=== PATIENT | female | born 1955 | race Caucasian/White ===

== ENCOUNTER → 2021-07-06 | Outpatient (CLI) | payer MEDICARE, BC ==
--- NOTE | 2021-07-06 14:15 | KCIC ---
EXAM: Lumbar spine MRI without contrast. HISTORY: Pain. TECHNIQUE: Multiplanar, multisequence magnetic resonance imaging of the lumbar spine was performed wi thout contrast. COMPARISON: None. FINDINGS: There is mild lumbar hyperlordosis. There is 4 mm grade 1 anterolisthesis of L3 on L4, 5 mm grade 1 anterolisthesis of L4 on L5, and 3 mm grade 1 anterolisthesis of L5 on S1. There is multilev el degenerative endplate remodeling, primarily at L3-L4. There is associated disc space narrowing and Schmorl's node formation primarily at this level. There is no suspicious osseous lesion. There is no acute or subacute fracture. The conus terminates at L1. There are few incidental osseous hemangiomas . At L1-L2, there is no stenosis. At L2-L3, there is a disc bulge and endplate remodeling. There is mild bilateral facet arthropathy. T here is no stenosis. At L3-L4, there is a right foraminal to extra foraminal disc protrusion superimposed on a disc bulge and endplate osteophytosis. There is severe bilateral facet arthropathy. There is hypertrophy of the ligamentum flavum. There is grade 1 anterolisthesis. There is moderate to severe right and moderate l eft foraminal stenosis. There is severe central canal stenosis. At L4-L5, there is a disc bulge and endplate remodeling. There is severe bilateral facet arthropathy. There is hypertrophy of the ligament flavum. There is grade 1 anterolisthesis. There is mild left fo raminal stenosis. There is mild to moderate central canal stenosis. At L5-S1, there are bilateral extraforaminal to lateral disc osteophyte complexes superimposed on a d isc bulge and endplate remodeling. There is severe bilateral facet arthropathy. There is grade 1 ante rolisthesis. There is mild bilateral foraminal stenosis. IMPRESSION: 1. Multilevel degenerative change involving the lumbar spine, described in detail above. This results in moderate to severe right and moderate left foraminal and severe central canal stenosis at L3-L4, mild left foraminal and mild to moderate central canal stenosis at L4-5 and mild bilateral foraminal stenosis at L5-S1. 2. Multilevel grade 1 anterolisthesis, mild hyperlordosis and mild scoliosis. Electronically signed by: Herminia Hagen MD (07/06/2021 2:13 PM) [id number]
== END ==
LOC: KCIC MRI 13:38
PROVIDERS: ATTEND Psychiatry & Neurology Neurology with Special Qualifications in Child Neurology
DX: M47.816 Spondylosis without myelopathy or radiculopathy, lumbar region (principal); M48.07 Spinal stenosis, lumbosacral region; M43.16 Spondylolisthesis, lumbar region; M51.27 Other intervertebral disc displacement, lumbosacral region; M48.8X7 Other specified spondylopathies, lumbosacral region; M51.46 Schmorl's nodes, lumbar region; M25.78 Osteophyte, vertebrae
CPT/HCPCS: 72148

== ENCOUNTER → 2021-08-03 | Outpatient (CLI) | payer MEDICARE, BC ==
--- NOTE | 2021-08-03 11:57 | KCIC ---
EXAM: Lumbar spine, flexion and extension. HISTORY: Pain. COMPARISON: None. FINDINGS: Lateral neutral standing and flexion and lateral supine views of the lumbar spine are obtai callie. There is a grade 1 anterolisthesis of L4 on L5, 5 mm grade 1 anterolisthesis of L3 on L4 and 3 m m grade 1 anterolisthesis of L5 on S1 and a standing position. There is 11 mm grade 1 anterolisthesis of L4 on L5, 9 mm grade 1 anterolisthesis of L3 on L4 and 3 mm grade 1 anterolisthesis of L5 on S1 w ith flexion. There is 2 mm grade 1 anterolisthesis of L4 on L5 in the supine position. There is multi level endplate remodeling and facet arthropathy. There is bone demineralization. IMPRESSION: 1. Grade 1 anterolisthesis of L4 on L5, and to lesser extent, L3 on L4, which increases with flexion and decreases in the supine position. 2. Grade 1 anterolisthesis of L5 on S1 which decreases in the supine position and does not change wit h flexion. 3. Multilevel degenerative change and suspected bone demineralization. Electronically signed by: Herminia Hagen MD (08/03/2021 11:55 AM) [id number]
== END ==
LOC: KCIC 11:08
PROVIDERS: ATTEND Neurological Surgery
DX: M47.817 Spondylosis without myelopathy or radiculopathy, lumbosacral region (principal); M43.17 Spondylolisthesis, lumbosacral region; M48.8X7 Other specified spondylopathies, lumbosacral region
CPT/HCPCS: 72100

== ENCOUNTER 2021-09-29 08:30 | Inpatient (IN) | payer MEDICARE, BC ==
[~2021-09-29] VITALS: Ht 160 cm; Wt 72.7 kg
[~2021-09-29 08:30] MED LIST: ALEN70TA71 PO; BUPR300T3 PO; CALC-161 PO; CARB-183 PO; GABA600T7 PO; HYDROmorphone 2 MG/ML INJ. IVP PRN; INSU100V37 SQ; INSU100V6 SQ; IV RINGERS,LACTATED 1000ML 1,000 ML IV SCH; LEVO125T5 PO; LORA10CA PO; LOSA-73 PO; MELO15TA6 PO; METO-239 PO; MORPHINE SULFATE 2 MG/ML INJ. IVP PRN; ONDA8TAB15 PO; PIOG15TA42 PO; POLY17PO29 PO; PRAV40TA2 PO; PROCHLORPERAZINE 10 MG/2 ML VIAL. IVP PRN; ROPI0.5T4 PO; SENN8.6T11 PO; TEGA6TAB PO; TIZA-75 PO; UBID50TA PO; ceFAZolin SODIUM 1 GM in IV NORMAL SALINE 1000ML BAG 1,000 ML IRR ONE; fentaNYL PF VIAL 100 MCG/2 ML VIAL IVP PRN
[2021-10-06] MEDS ORDERED: ceFAZolin SODIUM 1 GM in IV NORMAL SALINE 1000ML BAG 1,000 ML IRR ONE (14:00)
[2021-10-07] VITALS (8 sets, daily range): BP systolic 96–134; BP diastolic 43–64
[2021-10-07] MEDS ORDERED: MORPHINE SULFATE 2 MG/ML INJ. IVP PRN (06:00)
[2021-10-07] MEDS ORDERED: HYDROmorphone 2 MG/ML INJ. IVP PRN (06:00)
[2021-10-07] MEDS ORDERED: IV RINGERS,LACTATED 1000ML 1,000 ML IV SCH (06:00)
[2021-10-07] MEDS ORDERED: fentaNYL PF VIAL 100 MCG/2 ML VIAL IVP PRN (06:00)
[2021-10-07] MEDS ORDERED: PHENYLEPHRINE in 0.9% NACL PF 1 MG/10 ML SYRINGE. IV ONE (06:28)
[2021-10-07] MEDS ORDERED: PROPOFOL 10 MG/ML (20ML) VIAL. IV ONE (06:28)
[2021-10-07] MEDS ORDERED: ONDANSETRON PF 4 MG/2 ML VIAL. ONE (06:28)
[2021-10-07] MEDS ORDERED: DEXAMETHASONE SOD PHOS 4 MG/ML VIAL ONE (06:28)
[2021-10-07] MEDS ORDERED: GLYCOPYRROLATE 1 MG/5 ML VIAL. ONE (06:28)
[2021-10-07] MEDS ORDERED: LIDOCAINE 2% PF 5 ML VIAL. ONE ×5 (06:28→10:06)
[2021-10-07] MEDS ORDERED: ROCURONIUM 50 MG/5 ML VIAL. ONE (06:30)
[2021-10-07] MEDS ORDERED: fentaNYL PF VIAL 100 MCG/2 ML VIAL ONE ×3 (06:30→15:20)
[2021-10-07] MEDS ORDERED: SUCCINYLCHOLINE 200 MG/10 ML VIAL. ONE (06:30)
[2021-10-07] MEDS ORDERED: MIDAZOLAM HCL/PF 2 MG/2 ML VIAL. ONE (06:30)
[2021-10-07] MEDS ORDERED: REMIFENTANIL 1 MG VIAL. IV ONE ×3 (06:31→10:42)
[2021-10-07] MEDS ORDERED: 0.9 % SODIUM CHLORIDE 20 ML VIAL. IJ ONE ×7 (06:31→10:42)
[2021-10-07] MEDS ORDERED: BUPIVACAINE-EPI 0.5% 30 ML VIAL KIT. ONE (06:35)
[2021-10-07] MEDS ORDERED: GELATIN SPONGE SIZE 100. ONE ×2 (06:35→14:12)
[2021-10-07] MEDS ORDERED: KETOROLAC 60 MG/2 ML VIAL. ONE (06:35)
[2021-10-07] MEDS ORDERED: THROMBIN TOPICAL 20,000 UNIT SPRAY.SYRN KIT TP ONE ×2 (06:35→14:12)
[2021-10-07] MEDS ORDERED: PROPOFOL 50 ML IV ONE (06:50)
[2021-10-07] MEDS ORDERED: CRESTOR5 MG PO (07:21)
[2021-10-07] MEDS ORDERED: INSULIN LISPRO 100 UNIT/ML 3ML VIAL for OP,RR ONLY. SQ PRN (07:45)
--- NOTE | 2021-10-07 07:50 | EKG ---
[facility] [address] [place] [address] Test Date: 2021-10-07 Test Time: 07:49:40 Pat Name: KIM TOBIAS Department: Room: [place] [id number] Gender: F [employer]her: : 1955 Requested By: HANY CAMPOVERDE Order Number: [id number] Reading MD: Vinicius Esparza MD Measurements Intervals [place] Rate: 75 P: 0 AL: 172 QRS: 24 QRSD: 94 T: 55 QT: 392 QTc: 440 Interpretive Statements SINUS RHYTHM Electronically Signed On 10-10-2021 16:17:02 [employer] by Vinicius Esparza MD
[2021-10-07 07:51] LABS: PROTHROMBIN TIME PATIENT 12.8 SEC (11.7-14.0)
--- NOTE | 2021-10-07 08:26 | RAD ---
CT LUMBAR SPINE WO History:Reason: BRAIN LAB / Spl. Instructions: / History: Pain Technique: Noncontrast CT was performed of the lumbar spine. Multiplanar reconstructions were perform ed. Exposure: One or more of the following individualized dose reduction techniques were utilized for thi s examination: 1. Automated exposure control 2. Adjustment of the mA and/or kV according to patient size 3. Use of iterative reconstruction technique. Comparison: MRI July 06, 2021 Findings: Grade 1 anterolisthesis L4 on L5. Slight grade 1 anterolisthesis L3 on L4 and L5 on S1. Normal verteb ral body height. No acute fracture. Degenerative endplate changes most prominent L3-L4 and L4-L5. T12-L1: Minimal disc bulge. No canal or neuroforaminal narrowing. L1-L2: Small disc bulge. No canal or neuroforaminal narrowing. L2-L3: Small disc bulge. Mild facet arthropathy. Small left foraminal disc protrusion. Mild left sarath roforaminal narrowing. L3-L4: Disc phenomenon. Broad-based disc bulge. Slight anterolisthesis. Moderate canal narrowing. Se livan subarticular recess narrowing. Advanced facet arthropathy. Mild to moderate bilateral neuroforam inal narrowing. L4-L5: Anterolisthesis. Broad-based disc bulge with disc uncovering. Advanced facet arthropathy. Mod erate canal narrowing. And severe subarticular recess narrowing. Moderate bilateral neuroforaminal na rrowing. L5-S1: Slight anterolisthesis. Disc protrusion. Mild canal narrowing. Subarticular recess narrowing. Advanced facet arthropathy. Mild bilateral neuroforaminal narrowing. Impression: 1. Moderate lumbar spondylosis with multilevel anterolisthesis. 2. Moderate L3-L4 and L4-5 canal narrowing with severe subarticular recess narrowing. 3. Mild L5-S1 canal narrowing. 4. Neuroforaminal narrowing most prominent L4-5. Electronically signed by: Adam Douglass DO (10/07/2021 8:24 AM) [facility]
[2021-10-07] MEDS ORDERED: KETAMINE HCL IN NACL, ISO-OSM 50 MG/5 ML SYRINGE ONE ×2 (08:30→10:05)
[2021-10-07] MEDS ORDERED: SUGAMMADEX SODIUM 200 MG/2 ML VIAL. IVP ONE (08:45)
[2021-10-07] MEDS ORDERED: SEVOFLURANE > 120 MINUTES. IH ONE (09:34)
[2021-10-07] MEDS: LOSARTAN POTASSIUM 50 MG TABLET. PO SCH (10:00)
[2021-10-07] MEDS ORDERED: DEXTROSE 50% 25 GM / 50ML DISP.SYRIN. IV PRN ×2 (10:15→16:30)
[2021-10-07] MEDS ORDERED: IV DEXTROSE 5% 250 ML BAG. IV PRN ×2 (10:15→16:30)
[2021-10-07] MEDS ORDERED: 0.9 % SODIUM CHLORIDE 10 ML DISP.SYRIN. IV PRN (10:15)
[2021-10-07] MEDS ORDERED: MAGNESIUM HYDROXIDE 2,400 MG/30 ML ORAL.SUSP. PO PRN (10:15)
[2021-10-07] MEDS ORDERED: diphenhydrAMINE HCL 25 MG CAPSULE PO PRN (10:15)
[2021-10-07] MEDS ORDERED: MAG HYDROX/ALUMINUM HYD/SIMETH 30 ML ORAL.SUSP PO PRN (10:15)
[2021-10-07] MEDS ORDERED: CALCIUM CARBONATE 500 MG TAB.CHEW PO PRN (10:15)
[2021-10-07] MEDS ORDERED: NALOXONE 0.4 MG/ML VIAL. IV PRN (10:15)
[2021-10-07] MEDS ORDERED: PHENYLEPHRINE 10 MG/ML VIAL. ONE (11:00)
[2021-10-07] MEDS ORDERED: ONDANSETRON ODT 4 MG TAB.RAPDIS. PO PRN (11:15)
[2021-10-07] MEDS ORDERED: CETIRIZINE HCL 10 MG TABLET. PO PRN (11:15)
[2021-10-07] MEDS ORDERED: ceFAZolin SODIUM IV Push 1 GM VIAL. IVP ONE (11:29)
[2021-10-07] MEDS: GABAPENTIN 300 MG CAPSULE. PO SCH ×2 (11:30→19:58)
[2021-10-07] MEDS: rOPINIRole 0.25 MG TABLET. PO SCH (11:30)
[2021-10-07] MEDS ORDERED: INSULIN LISPRO 300 UNITS/3 ML VIAL. SQ PRN (11:45)
[2021-10-07] MEDS: SENNOSIDES 8.6 MG TABLET PO SCH (12:00)
[2021-10-07] MEDS: DOCUSATE SODIUM 100 MG CAPSULE. PO SCH ×2 (12:00→19:58)
[2021-10-07] MEDS: POLYETHYLENE GLYCOL 3350 17 GM PACKET. PO SCH (12:00)
[2021-10-07] MEDS: buPROPion XL 150 MG TAB.ER.24H. PO SCH (12:00)
[2021-10-07] MEDS: CALCIUM CARB/VIT D3 500/200 TABLET. PO SCH (12:00)
[2021-10-07] MEDS: PIOGLITAZONE 15 MG TABLET. PO SCH (12:00)
[2021-10-07] MEDS: CARBIDOPA/LEVODOPA 25/100MG TABLET PO SCH ×2 (14:00→19:57)
[2021-10-07] MEDS: fentaNYL PF VIAL 100 MCG/2 ML VIAL IVP PRN ×3 (15:22→18:15)
[2021-10-07] MEDS: PROCHLORPERAZINE 10 MG/2 ML VIAL. IVP PRN ×2 (15:22→15:34)
--- NOTE | 2021-10-07 16:15 | NUR ---
Arrived to unit by bed from PACU. Drowsy but awakens. c/o pain at incisional site. Repositioned and replaced ice pack to lower back. Dressing d/i. Able to move all extremities, pedal pulse + bilaterally and able to wiggle toes. IVF's intact and infusing. O2 at 3l per n/c and sating 97%. Side rails up x's 2 with call light in reach. Spouse at bedside. Cont. monitor.
--- NOTE | 2021-10-07 16:38 | DISCH ---
DISCHARGE INSTRUCTIONS Condition on Discharge Condition on Discharge: Stable Activity After Discharge Activity Instructions for Disc: Activity as tolerated, Avoid exertion Other activity instructions: no driving for a week, brace on when up Bathing Instructions: Shower-keep dressing dry, No Tub Bath until see Lifting Instructions after Dis: No heavy lifting, No pulling or pushing, Do not lift >10 pounds Diet after Discharge Additional Diet Restrictions: resume home diet Wound Incision Care Wound/Incision Care: Ice to area for comfort Other wound/incision instructi: may remove dressng in 48 hours if dry, no soaking Contacting the DRNatalie after DC Call your doctor for: Concerns you may have Follow-Up Follow up with: Dr. Campoverde in 2 weeks [phone] HANY CAMPOVERDE MD Oct 07, 2021 16:38
[2021-10-07] MEDS: INSULIN LISPRO 300 UNITS/3 ML VIAL. SQ SCH (17:00)
[2021-10-07] MEDS: ATORVASTATIN CALCIUM 40 MG TABLET. PO SCH (19:56)
[2021-10-07] MEDS: oxyCODONE/APAP 5/325 1 TAB TABLET PO PRN (19:59)
[2021-10-07] MEDS: [UNRECOGNIZED DRUG - OTHER] PO SCH (20:00)
[2021-10-07] MEDS: POTASSIUM CL 20MEQ-0.45% NACL 1,000 ML IV SCH ×2 (20:01→23:35)
[2021-10-07] MEDS ORDERED: VANCOMYCIN 1 GM in IV NORMAL SALINE 250ML 250 ML IV ONE (21:00)
[2021-10-07] MEDS: INSULIN GLARGINE SYRINGE. SQ SCH (21:46)
[2021-10-08 03:00] VITALS: BP 112/48
[2021-10-08] MEDS: oxyCODONE/APAP 5/325 1 TAB TABLET PO PRN ×4 (04:23→21:58)
[2021-10-08] MEDS ORDERED: VANCOMYCIN 1 GM in IV NORMAL SALINE 250ML 250 ML IV PRN (06:00)
[2021-10-08] MEDS: LEVOTHYROXINE 125 MCG TABLET PO SCH (06:22)
[2021-10-08 07:00] VITALS: BP 120/54
[2021-10-08] MEDS: POLYETHYLENE GLYCOL 3350 17 GM PACKET. PO SCH (07:51)
[2021-10-08] MEDS: buPROPion XL 150 MG TAB.ER.24H. PO SCH (07:51)
[2021-10-08] MEDS: CALCIUM CARB/VIT D3 500/200 TABLET. PO SCH (07:52)
[2021-10-08] MEDS: SENNOSIDES 8.6 MG TABLET PO SCH (07:52)
[2021-10-08] MEDS: CARBIDOPA/LEVODOPA 25/100MG TABLET PO SCH ×4 (07:52→21:57)
[2021-10-08] MEDS: METHOCARBAMOL 750 MG TABLET PO PRN (07:52)
[2021-10-08] MEDS: PIOGLITAZONE 15 MG TABLET. PO SCH (07:53)
[2021-10-08] MEDS: GABAPENTIN 300 MG CAPSULE. PO SCH ×3 (07:53→21:57)
[2021-10-08] MEDS: rOPINIRole 0.25 MG TABLET. PO SCH ×2 (07:53→11:33)
[2021-10-08] MEDS: INSULIN LISPRO 300 UNITS/3 ML VIAL. SQ SCH ×3 (08:00→18:27)
[2021-10-08] MEDS: METOPROLOL SUCC 24HR ER 25 MG TAB.ER.24H. PO SCH (09:00)
[2021-10-08] MEDS ORDERED: UBIDECARENONE 200 MG PO SCH (09:00)
[2021-10-08] MEDS: [UNRECOGNIZED DRUG - OTHER] PO SCH ×2 (09:00→21:00)
--- NOTE | 2021-10-08 10:15 | NUR ---
Rating pain at "8". Pain med given. Ambulated to chair with some difficulty. Used walker and LSO brace. Unable to stand up straight/ stooping forward. Resting in chair with feet up. Encourage pt to sit up for at least 1/2 hour. Call light in reach. Cont. monitor.
[2021-10-08 11:00] VITALS: BP 118/62
[2021-10-08] MEDS: LOSARTAN POTASSIUM 50 MG TABLET. PO SCH (11:00)
[2021-10-08] MEDS ORDERED: SENNOSIDES 8.6 MG TABLET PO PRN (11:30)
[2021-10-08] MEDS: DOCUSATE SODIUM 100 MG CAPSULE. PO SCH ×2 (11:33→21:57)
--- NOTE | 2021-10-08 11:59 | PDOC ---
PROGRESS NOTES Date of Service DATE: 10/08/21 TIME: 11:58 Subjective Subjective POD #1 S/P L3-4 lamienctomy, instrumented fusion L3-4, L4-5 back/ incision pain leg pain resolved Objective Objective Vital Signs Date Time Temp Pulse Resp B/P (MAP) Pulse Ox O2 Delivery O2 Flow Rate FiO2 10/08/21 11:00 98.4 92 16 118/62 (80) 98 Room Air 98.4 10/08/21 03:00 3.0 Intake and Output 10/08/21 07:00 Intake Total 3920 ml Output Total 775 ml Balance 3145 ml Intake Oral 370 ml IV Total 3550 ml Output Urine Total 700 ml Estimated Blood Loss 75 ml # Voids 4 Physical Exam General: Alert, Oriented X3, Cooperative MUSCULOSKELETAL: Other (HERRERA) Neuro: Normal speech Skin: Other (dressing dry and intact, flat) Plan Plan of Care encouraged increased activity as tolerated PT Brace when up possibly home tomorrow Comment Review of Relevant I have reviewed the following items ene (where applicable) has been applied. Labs Laboratory Tests Test 10/07/21 07:18 10/07/21 07:28 10/07/21 07:44 10/07/21 15:02 POC SARS CoV-2 Antigen Negative (NEGATIVE) Prothrombin Time 12.8 SEC (11.7-14.0) Prothromb Time International Ratio 1.0 (0.8-1.1) Activated Partial Thromboplast Time 26 SEC (24-38) Glucose (Fingerstick) 76 mg/dL (70-99) 137 mg/dL (70-99) Test 10/07/21 16:49 10/07/21 20:07 10/08/21 07:32 10/08/21 11:08 Glucose (Fingerstick) 111 mg/dL (70-99) 219 mg/dL (70-99) 106 mg/dL (70-99) 203 mg/dL (70-99) Laboratory Tests Test 10/07/21 15:02 10/07/21 16:49 10/07/21 20:07 10/08/21 07:32 Glucose (Fingerstick) 137 mg/dL (70-99) 111 mg/dL (70-99) 219 mg/dL (70-99) 106 mg/dL (70-99) Test 10/08/21 11:08 Glucose (Fingerstick) 203 mg/dL (70-99) Medications Current Medications Cefazolin Sodium 1 gm/Sodium Chloride 1,000 ml @ 1,000 mls/hr 1X ONCE IRR Last administered on 09/29/21at 13:00; Start 09/29/21 at 06:00; Stop 09/29/21 at 06:59; Status DC Fentanyl Citrate (Fentanyl 2ml Vial) 25 mcg PRN Q5MIN PRN IVP MILD PAIN 1-3; Start 09/29/21 at 06:00; Stop 09/30/21 at 05:59; Status DC Fentanyl Citrate (Fentanyl 2ml Vial) 50 mcg PRN Q5MIN PRN IVP MODERATE PAIN 4- 6; Start 09/29/21 at 06:00; Stop 09/30/21 at 05:59; Status DC Morphine Sulfate (Morphine Sulfate) 1 mg PRN Q10MIN PRN IVP SEVERE PAIN 7-10; Start 09/29/21 at 06:00; Stop 09/30/21 at 05:59; Status DC Ringer's Solution 1,000 ml @ 30 mls/hr Q24H IV ; Start 09/29/21 at 06:00; Stop 09/29/21 at 17:59; Status DC Hydromorphone HCl (Dilaudid) 0.5 mg PRN Q10MIN PRN IVP SEVERE PAIN 7-10, 2nd CHOICE; Start 09/29/21 at 06:00; Stop 09/30/21 at 05:59; Status DC Prochlorperazine Edisylate (Compazine) 5 mg PACU PRN PRN IVP NAUSEA, MRX1; Start 09/29/21 at 06:00; Stop 09/30/21 at 05:59; Status DC Cefazolin Sodium/ Dextrose 50 ml @ 100 mls/hr 1X PREOP PRN IV PRIOR TO PROCEDURE; Start 09/29/21 at 06:00; Stop 09/29/21 at 18:00; Status DC Cefazolin Sodium 1 gm/Sodium Chloride 1,000 ml @ 1,000 mls/hr 1X ONCE IRR Last administered on 10/07/21at 10:25; Start 10/06/21 at 14:00; Stop 10/06/21 at 14:59; Status DC Fentanyl Citrate (Fentanyl 2ml Vial) 25 mcg PRN Q5MIN PRN IVP MILD PAIN 1-3; Start 10/07/21 at 06:00; Stop 10/07/21 at 16:43; Status DC Fentanyl Citrate (Fentanyl 2ml Vial) 50 mcg PRN Q5MIN PRN IVP MODERATE PAIN 4-6 Last administered on 10/07/21at 15:30; Start 10/07/21 at 06:00; Stop 10/07/21 at 16:43; Status DC Morphine Sulfate (Morphine Sulfate) 1 mg PRN Q10MIN PRN IVP SEVERE PAIN 7-10; Start 10/07/21 at 06:00; Stop 10/07/21 at 16:48; Status DC Ringer's Solution 1,000 ml @ 30 mls/hr Q24H IV Last administered on 10/07/21at 07:37; Start 10/07/21 at 06:00; Stop 10/07/21 at 17:59; Status DC Hydromorphone HCl (Dilaudid) 0.5 mg PRN Q10MIN PRN IVP SEVERE PAIN 7-10, 2nd CHOICE; Start 10/07/21 at 06:00; Stop 10/07/21 at 16:43; Status DC Prochlorperazine Edisylate (Compazine) 5 mg PACU PRN PRN IVP NAUSEA, MRX1 Last administered on 10/07/21at 15:34; Start 10/07/21 at 06:00; Stop 10/07/21 at 16:43; Status DC Cefazolin Sodium/ Dextrose 50 ml @ 100 mls/hr 1X PREOP PRN IV PRIOR TO PROCEDURE Last administered on 10/07/21at 09:00; Start 10/07/21 at 06:00; Stop 10/07/21 at 16:41; Status DC Gelatin (Gelfoam Size 100) 1 each STK-MED ONCE .ROUTE Last administered on 10/07/21at 10:25; Start 10/07/21 at 06:35; Stop 10/07/21 at 06:35; Status DC Bupivacaine HCl/ Epinephrine Bitart (Sensorcain-Epi 0.5% Kit) 30 ml STK-MED ONCE .ROUTE Last administered on 10/07/21at 10:25; Start 10/07/21 at 06:35; Stop 10/07/21 at 06:35; Status DC Ketorolac Tromethamine (Toradol Im) 60 mg STK-MED ONCE .ROUTE Last administered on 10/07/21at 10:25; Start 10/07/21 at 06:35; Stop 10/07/21 at 06:35; Status DC Thrombin 20,000 unit STK-MED ONCE TP Last administered on 10/07/21at 10:25; Start 10/07/21 at 06:35; Stop 10/07/21 at 06:35; Status DC Vancomycin HCl 1 gm/Sodium Chloride 250 ml @ 250 mls/hr PREOP PRN PRN IV PRIOR TO PROCEDURE Last administered on 10/07/21at 09:20; Start 10/08/21 at 06:00; Stop 10/07/21 at 16:47; Status DC Insulin Human Lispro (HumaLOG VIAL for OP,RR ONLY) 0-10 units PRN Q1HR PRN SQ PER PROTOCOL Last administered on 10/07/21at 15:07; Start 10/07/21 at 07:45; Stop 10/07/21 at 16:43; Status DC Propofol (Diprivan) 200 mg STK-MED ONCE IV ; Start 10/07/21 at 06:28; Stop 10/07/21 at 08:28; Status DC Glycopyrrolate (Robinul) 1 mg STK-MED ONCE .ROUTE ; Start 10/07/21 at 06:28; Stop 10/07/21 at 08:28; Status DC Dexamethasone Sodium Phosphate (Decadron) 4 mg STK-MED ONCE .ROUTE ; Start 10/07/21 at 06:28; Stop 10/07/21 at 08:29; Status DC Lidocaine HCl (Lidocaine Pf 2% Vial) 5 ml STK-MED ONCE .ROUTE ; Start 10/07/21 at 06:28; Stop 10/07/21 at 08:29; Status DC Ondansetron HCl (Zofran) 4 mg STK-MED ONCE .ROUTE ; Start 10/07/21 at 06:28; Stop 10/07/21 at 08:29; Status DC Phenylephrine HCl (PHENYLEPHRINE in 0.9% NACL PF) 1 mg STK-MED ONCE IV ; Start 10/07/21 at 06:28; Stop 10/07/21 at 08:29; Status DC Sugammadex Sodium (Bridion) 200 mg 1X ONCE IVP ; Start 10/07/21 at 08:45; Stop 10/07/21 at 08:46; Status DC Fentanyl Citrate (Fentanyl 2ml Vial) 100 mcg STK-MED ONCE .ROUTE ; Start 10/07/21 at 06:30; Stop 10/07/21 at 08:30; Status DC Succinylcholine Chloride (Anectine) 200 mg STK-MED ONCE .ROUTE ; Start 10/07/21 at 06:30; Stop 10/07/21 at 08:30; Status DC Rocuronium [place] (Zemuron) 50 mg STK-MED ONCE .ROUTE ; Start 10/07/21 at 06:30; Stop 10/07/21 at 08:30; Status DC Midazolam HCl (Versed) 2 mg STK-MED ONCE .ROUTE ; Start 10/07/21 at 06:30; Stop 10/07/21 at 08:31; Status DC Remifentanil HCl (Ultiva) 1 mg STK-MED ONCE IV ; Start 10/07/21 at 06:31; Stop 10/07/21 at 08:31; Status DC Sodium Chloride (SODIUM CHLORIDE 20ml) 20 ml STK-MED ONCE IJ ; Start 10/07/21 at 06:31; Stop 10/07/21 at 08:31; Status DC Propofol 50 ml @ As Directed STK-MED ONCE IV ; Start 10/07/21 at 06:50; Stop 10/07/21 at 08:50; Status DC Carbidopa/Levodopa (Sinemet 25/100) 1 tab DAILY08 PO Last administered on 10/08/21at 11:32; Start 10/08/21 at 08:00 Carbidopa/Levodopa (Sinemet 25/100) 1.5 tab TID PO Last administered on at 07:52; Start 10/07/21 at 14:00 Insulin Human Lispro (HumaLOG) 5-10 UNITS home slid... PRN BFRMEAL PRN SQ diabetes control; Start 10/07/21 at 11:45; Status UNV Levothyroxine Sodium (Synthroid) 125 mcg DAILY06 PO Last administered on 10/08/21at 06:22; Start 10/08/21 at 06:00 Losartan Potassium (Cozaar) 50 mg DAILY PO ; Start 10/07/21 at 10:00 Metoprolol Succinate (Toprol Xl) 25 mg DAILY PO ; Start 10/08/21 at 09:00 Pioglitazone HCl (Actos) 15 mg DAILY PO Last administered on 10/08/21 07:53; Start 10/07/21 at 12:00 Polyethylene Glycol (miraLAX PACKET) 8.5 gm DAILY PO Last administered on 10/08/21 07:51; Start 10/07/21 at 12:00 Sennosides (Senna) 8.6 mg DAILY PO Last administered on 10/08/21 07:52; Start 10/07/21 at 12:00 Non-Formulary Medication (Alendronate Sodium ) 70 mg WEEKLY PO ; Start 10/14/21 at 09:00; Status UNV Bupropion HCl (Wellbutrin Xl) 300 mg DAILY PO Last administered on 10/08/21at 07:51; Start 10/07/21 at 12:00 Calcium/Vitamin D (Oscal D 500mg/ 200uts) 1 tab DAILY PO Last administered on 10/08/21at 07:52; Start 10/07/21 at 12:00 Gabapentin (Neurontin) 300 mg BIDACBL PO Last administered on 10/08/21 11:32; Start 10/07/21 at 11:30 Gabapentin (Neurontin) 600 mg HS PO Last administered on 10/07/21 19:58; Start 10/07/21 at 21:00 Insulin Glargine (Lantus Syringe) 15 unit QHS SQ Last administered on 10/07/21at 21:46; Start 10/07/21 at 21:00 Cetirizine HCl (ZyrTEC) 10 mg PRN DAILY PRN PO ALLERGIES; Start 10/07/21 at 11:15 Ondansetron HCl (Zofran Odt) 8 mg PRN DAILY PRN PO NAUSEA/VOMITING; Start 10/07/21 at 11:15 Ropinirole HCl (Requip) 0.5 mg BIDACBL PO Last administered on 10/08/21 11:33; Start 10/07/21 at 11:30 Atorvastatin Calcium (Lipitor) 80 mg HS PO Last administered on 10/07/21 19:56; Start 10/07/21 at 21:00 Non-Formulary Medication (Tegaserod Hydrogen Maleate (Zelnorm)) 6 mg BID PO ; Start 10/07/21 at 21:00; Status UNV Non-Formulary Medication (Ubidecarenone (Coq10)) 200 mg DAILY PO ; Start 10/08/21 at 09:00; Status UNV Fentanyl Citrate (Fentanyl 2ml Vial) 50 mcg PRN Q2HR PRN IVP MODERATE TO SEVERE PAIN Last administered on 10/07/21at 18:15; Start 10/07/21 at 10:15 Vancomycin HCl 1 gm/Sodium Chloride 250 ml @ 250 mls/hr 1X ONCE IV Last administered on 10/07/21at 21:42; Start 10/07/21 at 21:00; Stop 10/07/21 at 21:59; Status DC Acetaminophen (Tylenol) 650 mg PRN Q6HRS PRN PO MILD PAIN / TEMP > 100.3'F; Start 10/07/21 at 10:15 Al Hydroxide/Mg Hydroxide (Mylanta Plus Xs) 30 ml PRN Q3HRS PRN PO HEARTBURN / GAS; Start 10/07/21 at 10:15 Calcium Carbonate/ Glycine (Tums) 500 mg PRN Q3HRS PRN PO INDIGESTION; Start 10/07/21 at 10:15 Diphenhydramine HCl (Benadryl) 25 mg PRN Q6HRS PRN PO ITCHING; Start 10/07/21 at 10:15 Naloxone HCl (Narcan) 0.1 mg PRN Q2MIN PRN IV SEE COMMENTS; Start 10/07/21 at 10:15 Sodium Chloride (Normal Saline Flush) 3 ml QSHIFT PRN IV AFTER MEDS AND BLOOD DRAWS; Start 10/07/21 at 10:15 Potassium Chloride/Sodium Chloride 1,000 ml @ 75 mls/hr [id number] IV Last administered on 10/07/21at 20:01; Start 10/07/21 at 10:15 Oxycodone/ Acetaminophen (Percocet 5/325) 1 tab PRN Q4HRS PRN PO MILD PAIN, 1ST CHOICE Last administered on 10/08/21at 09:58; Start 10/07/21 at 10:15 Oxycodone/ Acetaminophen (Percocet 5/325) 2 tab PRN Q4HRS PRN PO MODERATE PAIN, SEVERE PAIN; Start 10/07/21 at 10:15 Methocarbamol (Robaxin) 750 mg PRN TID PRN PO MUSCLE SPASMS Last administered on 10/08/21at 07:52; Start 10/07/21 at 10:15 Docusate Sodium (Colace) 100 mg BID PO Last administered on 10/08/21at 11:33; Start 10/07/21 at 12:00 Magnesium Hydroxide (Milk Of Magnesia) 2,400 mg PRN Q12HR PRN PO CONSTIPATION; Start 10/07/21 at 10:15 Dextrose (Dextrose 50%-Water Syringe) 12.5 gm PRN Q15MIN PRN IV SEE COMMENTS; Start 10/07/21 at 10:15 Dextrose (Iv Dextrose 5%) 250 ml PRN Q15MIN PRN IV SEE COMMENTS; Start 10/07/21 at 10:15 Ketamine HCl (Ketamine) 50 mg STK-MED ONCE .ROUTE ; Start 10/07/21 at 08:30; Stop 10/07/21 at 10:30; Status DC Lidocaine HCl (Lidocaine Pf 2% Vial) 5 ml STK-MED ONCE .ROUTE ; Start 10/07/21 at 08:31; Stop 10/07/21 at 10:32; Status DC Lidocaine HCl (Lidocaine Pf 2% Vial) 5 ml STK-MED ONCE .ROUTE ; Start 10/07/21 at 08:31; Stop 10/07/21 at 10:32; Status DC Sodium Chloride (SODIUM CHLORIDE 20ml) 20 ml STK-MED ONCE IJ ; Start 10/07/21 at 08:31; Stop 10/07/21 at 10:32; Status DC Sodium Chloride (SODIUM CHLORIDE 20ml) 20 ml STK-MED ONCE IJ ; Start 10/07/21 at 08:34; Stop 10/07/21 at 10:34; Status DC Remifentanil HCl (Ultiva) 1 mg STK-MED ONCE IV ; Start 10/07/21 at 08:48; Stop 10/07/21 at 10:48; Status DC Sodium Chloride (SODIUM CHLORIDE 20ml) 20 ml STK-MED ONCE IJ ; Start 10/07/21 at 08:48; Stop 10/07/21 at 10:49; Status DC Sevoflurane (Ultane) 90 ml STK-MED ONCE IH ; Start 10/07/21 at 09:34; Stop 10/07 at 11:34; Status DC Ketamine HCl (Ketamine) 50 mg STK-MED ONCE .ROUTE ; Start 10/07/21 at 10:05; Stop 10/07/21 at 12:06; Status DC Lidocaine HCl (Lidocaine Pf 2% Vial) 5 ml STK-MED ONCE .ROUTE ; Start 10/07/21 at 10:06; Stop 10/07/21 at 12:06; Status DC Lidocaine HCl (Lidocaine Pf 2% Vial) 5 ml STK-MED ONCE .ROUTE ; Start 10/07/21 at 10:06; Stop 10/07/21 at 12:06; Status DC Sodium Chloride (SODIUM CHLORIDE 20ml) 20 ml STK-MED ONCE IJ ; Start 10/07/21 at 10:06; Stop 10/07/21 at 12:06; Status DC Sodium Chloride (SODIUM CHLORIDE 20ml) 20 ml STK-MED ONCE IJ ; Start 10/07/21 at 10:06; Stop 10/07/21 at 12:06; Status DC Remifentanil HCl (Ultiva) 1 mg STK-MED ONCE IV ; Start 10/07/21 at 10:42; Stop 10/07/21 at 12:42; Status DC Sodium Chloride (SODIUM CHLORIDE 20ml) 20 ml STK-MED ONCE IJ ; Start 10/07/21 at 10:42; Stop 10/07/21 at 12:42; Status DC Phenylephrine HCl ([place]-Synephrine Inj) 10 mg STK-MED ONCE .ROUTE ; Start 10/07/21 at 11:00; Stop 10/07/21 at 13:01; Status DC Cefazolin Sodium (Ancef) 1 gm STK-MED ONCE IVP ; Start 10/07/21 at 11:29; Stop 10/07/21 at 13:30; Status DC Gelatin (Gelfoam Size 100) 1 each STK-MED ONCE .ROUTE Last administered on 10/07/21at 14:14; Start 10/07/21 at 14:12; Stop 10/07/21 at 14:13; Status DC Thrombin 20,000 unit STK-MED ONCE TP Last administered on 10/07/21at 14:14; Start 10/07/21 at 14:12; Stop 10/07/21 at 14:13; Status DC Fentanyl Citrate (Fentanyl 2ml Vial) 100 mcg STK-MED ONCE .ROUTE ; Start 10/07/21 at 12:17; Stop 10/07/21 at 14:17; Status DC Fentanyl Citrate (Fentanyl 2ml Vial) 100 mcg STK-MED ONCE .ROUTE ; Start 10/07/21 at 15:20; Stop 10/07/21 at 15:20; Status DC Insulin Human Lispro (HumaLOG) 0-9 UNITS TIDWMEALS SQ Last administered on 10/08/21at 11:39; Start 10/07/21 at 17:00 Dextrose (Dextrose 50%-Water Syringe) 12.5 gm PRN Q15MIN PRN IV SEE COMMENTS; Start 10/07/21 at 16:30; Status UNV Dextrose (Iv Dextrose 5%) 250 ml PRN Q15MIN PRN IV SEE COMMENTS; Start 10/07/21 at 16:30; Status UNV Sennosides (Senna) 17.2 mg PRN BID PRN PO CONSTIPATION; Start 10/08/21 at 11:30 Methylprednisolone (Medrol) 8 mg BID PO ; Start 10/08/21 at 12:00; Stop 10/08/21 at 21:01 Methylprednisolone (Medrol) 4 mg BIDPCLD PO ; Start 10/08/21 at 13:30; Stop 10/08/21 at 17:31 Methylprednisolone (Medrol) 4 mg TIDPC PO ; Start 10/09/21 at 08:30; Stop 10/09/21 at 17:31 Methylprednisolone (Medrol) 8 mg QHS PO ; Start 10/09/21 at 21:00; Stop 10/09/21 at 21:01 Methylprednisolone (Medrol) 4 mg QIDAFTMEAL PO ; Start 10/10/21 at 09:00; Stop 10/10/21 at 21:01 Methylprednisolone (Medrol) 4 mg TID PO ; Start 10/11/21 at 09:00; Stop 10/11/21 at 21:01 Methylprednisolone (Medrol) 4 mg BID PO ; Start 10/12/21 at 09:00; Stop 10/12/21 at 21:01 Methylprednisolone (Medrol) 4 mg DAILY PO ; Start 10/13/21 at 09:00; Stop 10/13/21 at 09:01 Active Scripts Active Reported Crestor (Rosuvastatin Calcium) 5 Mg Tablet 20 Mg PO HS Losartan Potassium 50 Mg Tablet 50 Mg PO DAILY Actos (Pioglitazone Hcl) 15 Mg Tablet 15 Mg PO DAILY Tresiba (Insulin Degludec) 100 Unit/1 Ml Vial 15 Unit SQ HS Humalog (Insulin Lispro) 100 Unit/1 Ml Vial 5-10 Unit SQ PRN BFRMEAL PRN Calcium 500+D Tablet Chew (Calcium Carbonate/Vitamin D3) 1 Each Tab.chew 1 Each PO DAILY Coq10 (Ubidecarenone) 50 Mg Tab.chew 200 Mg PO DAILY Ondansetron Odt (Ondansetron) 8 Mg Tab.rapdis 8 Mg PO DAILY PRN Miralax (Polyethylene Glycol 3350) 17 Gm Powd.pack 0.5 Pkt PO DAILY Senna Laxative (Sennosides) 8.6 Mg Tablet 8.6 Mg PO DAILY Claritin (Loratadine) 10 Mg Capsule 10 Mg PO DAILY PRN Zelnorm (Tegaserod Hydrogen Maleate) 6 Mg Tablet 6 Mg PO BID Alendronate Sodium 70 Mg Tablet 70 Mg PO WEEKLY Wellbutrin Xl (Bupropion Hcl) 300 Mg Tab.er.24h 300 Mg PO DAILY Gabapentin 600 Mg Tablet 600 Mg PO HS Gabapentin 600 Mg Tablet 300 Mg PO BIDACBL Metoprolol Succinate ( Xl ) (Metoprolol Succinate) 25 Mg Tab.er.24h 25 Mg PO DAILY Ropinirole Hcl 0.5 Mg Tablet 0.5 Mg PO BIDACBL Sinemet 25-100 Mg Tablet (Carbidopa/Levodopa) 1 Each Tablet 1.5 Tab PO TID Sinemet 25-100 Mg Tablet (Carbidopa/Levodopa) 1 Each Tablet 1 Tab PO DAILY08 Levothyroxine Sodium 125 Mcg Tablet 125 Mcg PO DAILYAC Vitals/I & O Vital Sign - Last 24 Hours 10/07/21 10/07/21 10/07/21 10/07/21 14:51 14:51 15:05 15:20 Temp 97.1 97.1 97.1 97.1 Pulse 92 88 86 Resp 18 18 16 B/P (MAP) 104/56 115/51 90/57 Pulse Ox 100 100 98 O2 Delivery Simple Mask Mask Simple Mask Room Air O2 Flow Rate 10 10 10 10/07/21 10/07/21 10/07/21 10/07/21 15:22 15:30 15:35 15:50 Temp 97.0 97.0 Pulse 84 83 Resp 20 16 16 16 B/P (MAP) 82/48 89/46 Pulse Ox 97 100 94 93 O2 Delivery Room Air Nasal Cannula Nasal Cannula Nasal Cannula O2 Flow Rate 2.0 2 3 10/07/21 10/07/21 10/07/21 10/07/21 16:05 16:08 16:30 16:34 Temp 97.6 97.6 Pulse 80 79 Resp 16 16 B/P (MAP) 101/57 101/49 (66) Pulse Ox 97 97 O2 Delivery Nasal Cannula Nasal Cannula Nasal Cannula O2 Flow Rate 3 3 3.0 3.0 10/07/21 10/07/21 10/07/21 10/07/21 16:37 16:52 17:03 17:22 Temp 97.8 98.3 97.8 98.6 97.8 98.3 97.8 98.6 Pulse 76 76 74 68 Resp 18 16 16 18 B/P (MAP) 112/64 (80) 111/62 (78) 124/59 (80) 134/64 (87) Pulse Ox 97 94 95 91 O2 Flow Rate 3.0 3.0 3.0 3.0 10/07/21 10/07/21 10/07/21 10/07/21 18:15 19:00 19:59 20:00 Pulse 71 Resp 20 15 B/P (MAP) 112/43 (66) Pulse Ox 96 96 O2 Delivery Nasal Cannula Nasal Cannula Room Air Room Air O2 Flow Rate 3.0 3.0 10/07/21 10/07/21 10/07/21 10/08/21 20:01 21:05 23:00 03:00 Temp 97.9 97.7 97.9 97.7 Pulse 78 86 Resp 14 20 18 B/P (MAP) 96/52 (67) 112/48 (69) Pulse Ox 98 93 O2 Delivery Room Air Room Air Nasal Cannula Nasal Cannula O2 Flow Rate 3.0 3.0 10/08/21 10/08/21 10/08/21 10/08/21 04:23 05:00 07:00 07:40 Temp 97.8 97.8 Pulse 91 Resp 18 15 18 B/P (MAP) 120/54 (76) Pulse Ox 97 O2 Delivery Room Air Room Air Room Air 10/08/21 10/08/21 09:58 11:00 Temp 98.4 98.4 Pulse 92 Resp 16 B/P (MAP) 118/62 (80) Pulse Ox 98 O2 Delivery Room Air Room Air Intake and Output 10/07/21 10/07/21 10/08/21 15:00 23:00 07:00 Intake Total 3100 ml 820 ml Output Total 775 ml Balance 2325 ml 820 ml Justifications for Admission Other Justification BRENDA LEAHY APRN Oct 08, 2021 11:59
[2021-10-08] MEDS: POTASSIUM CL 20MEQ-0.45% NACL 1,000 ML IV SCH (12:19)
[2021-10-08] MEDS: methylPREDNISolone 4 MG TABLET. PO SCH ×4 (12:23→21:59)
[2021-10-08 15:00] VITALS: BP 94/43
[2021-10-08 19:00] VITALS: BP 120/59
[2021-10-08] MEDS: ATORVASTATIN CALCIUM 40 MG TABLET. PO SCH (21:58)
[2021-10-08] MEDS: INSULIN GLARGINE SYRINGE. SQ SCH (22:00)
[2021-10-08 23:00] VITALS: BP 115/49
[2021-10-09 03:00] VITALS: BP 116/56
[2021-10-09] MEDS: oxyCODONE/APAP 5/325 1 TAB TABLET PO PRN ×5 (04:13→22:13)
[2021-10-09] MEDS: LEVOTHYROXINE 125 MCG TABLET PO SCH (06:21)
[2021-10-09 07:00] VITALS: BP 114/52
[2021-10-09] MEDS: SENNOSIDES 8.6 MG TABLET PO SCH (08:09)
[2021-10-09] MEDS: CALCIUM CARB/VIT D3 500/200 TABLET. PO SCH (08:09)
[2021-10-09] MEDS: rOPINIRole 0.25 MG TABLET. PO SCH ×2 (08:09→11:41)
[2021-10-09] MEDS: CARBIDOPA/LEVODOPA 25/100MG TABLET PO SCH ×4 (08:09→22:01)
[2021-10-09] MEDS: GABAPENTIN 300 MG CAPSULE. PO SCH ×3 (08:09→22:01)
[2021-10-09] MEDS: methylPREDNISolone 4 MG TABLET. PO SCH ×3 (08:09→17:10)
[2021-10-09] MEDS: DOCUSATE SODIUM 100 MG CAPSULE. PO SCH ×2 (08:10→22:01)
[2021-10-09] MEDS: buPROPion XL 150 MG TAB.ER.24H. PO SCH (08:10)
[2021-10-09] MEDS: PIOGLITAZONE 15 MG TABLET. PO SCH (08:10)
[2021-10-09] MEDS: LOSARTAN POTASSIUM 50 MG TABLET. PO SCH (08:11)
[2021-10-09] MEDS: POLYETHYLENE GLYCOL 3350 17 GM PACKET. PO SCH (08:11)
[2021-10-09] MEDS: INSULIN LISPRO 300 UNITS/3 ML VIAL. SQ SCH ×3 (08:24→17:11)
[2021-10-09] MEDS: METOPROLOL SUCC 24HR ER 25 MG TAB.ER.24H. PO SCH (09:00)
[2021-10-09 11:00] VITALS: BP 112/52
[2021-10-09] MEDS ORDERED: traMADol 50 MG TABLET PO PRN (13:30)
--- NOTE | 2021-10-09 14:04 | PDOC ---
PROGRESS NOTES Date of Service DATE: 10/09/21 TIME: 14:01 Subjective Subjective POD #2 S/P laminectomy L3-4 and fusion L3-5 up in chair back sore, legs ache has been walking to bathroom with walker feels pain medication is making her drowsy and is too strong Objective Objective Vital Signs Date Time Temp Pulse Resp B/P (MAP) Pulse Ox O2 Delivery O2 Flow Rate FiO2 10/09/21 13:12 Room Air 10/09/21 11:00 98.2 89 16 112/52 (72) 93 98.2 10/08/21 03:00 3.0 Intake and Output 10/09/21 07:00 # Voids 7 Physical Exam General: Alert, Oriented X3, Cooperative MUSCULOSKELETAL: Other (brace on) Neuro: Other (HERRERA) Skin: Other Plan Plan of Care encouraged increased activity as tolerated Brace on when up change pain medication plan to dc home tomorrow Comment Review of Relevant I have reviewed the following items ene (where applicable) has been applied. Labs Laboratory Tests Test 10/07/21 15:02 10/07/21 16:49 10/07/21 20:07 10/08/21 07:32 Glucose (Fingerstick) 137 mg/dL (70-99) 111 mg/dL (70-99) 219 mg/dL (70-99) 106 mg/dL (70-99) Test 10/08/21 11:08 10/08/21 17:09 10/08/21 20:11 10/09/21 08:09 Glucose (Fingerstick) 203 mg/dL (70-99) 271 mg/dL (70-99) 274 mg/dL (70-99) 207 mg/dL (70-99) Test 10/09/21 11:41 Glucose (Fingerstick) 244 mg/dL (70-99) Laboratory Tests Test 10/08/21 17:09 10/08/21 20:11 10/09/21 08:09 10/09/21 11:41 Glucose (Fingerstick) 271 mg/dL (70-99) 274 mg/dL (70-99) 207 mg/dL (70-99) 244 mg/dL (70-99) Medications Current Medications Cefazolin Sodium 1 gm/Sodium Chloride 1,000 ml @ 1,000 mls/hr 1X ONCE IRR Last administered on 09/29/21at 13:00; Start 09/29/21 at 06:00; Stop 09/29/21 at 06:59; Status DC Fentanyl Citrate (Fentanyl 2ml Vial) 25 mcg PRN Q5MIN PRN IVP MILD PAIN 1-3; Start 09/29/21 at 06:00; Stop 09/30/21 at 05:59; Status DC Fentanyl Citrate (Fentanyl 2ml Vial) 50 mcg PRN Q5MIN PRN IVP MODERATE PAIN 4- 6; Start 09/29/21 at 06:00; Stop 09/30/21 at 05:59; Status DC Morphine Sulfate (Morphine Sulfate) 1 mg PRN Q10MIN PRN IVP SEVERE PAIN 7-10; Start 09/29/21 at 06:00; Stop 09/30/21 at 05:59; Status DC Ringer's Solution 1,000 ml @ 30 mls/hr Q24H IV ; Start 09/29/21 at 06:00; Stop 09/29/21 at 17:59; Status DC Hydromorphone HCl (Dilaudid) 0.5 mg PRN Q10MIN PRN IVP SEVERE PAIN 7-10, 2nd CHOICE; Start 09/29/21 at 06:00; Stop 09/30/21 at 05:59; Status DC Prochlorperazine Edisylate (Compazine) 5 mg PACU PRN PRN IVP NAUSEA, MRX1; Start 09/29/21 at 06:00; Stop 09/30/21 at 05:59; Status DC Cefazolin Sodium/ Dextrose 50 ml @ 100 mls/hr 1X PREOP PRN IV PRIOR TO PROCEDURE; Start 09/29/21 at 06:00; Stop 09/29/21 at 18:00; Status DC Cefazolin Sodium 1 gm/Sodium Chloride 1,000 ml @ 1,000 mls/hr 1X ONCE IRR Last administered on 10/07/21at 10:25; Start 10/06/21 at 14:00; Stop 10/06/21 at 14:59; Status DC Fentanyl Citrate (Fentanyl 2ml Vial) 25 mcg PRN Q5MIN PRN IVP MILD PAIN 1-3; Start 10/07/21 at 06:00; Stop 10/07/21 at 16:43; Status DC Fentanyl Citrate (Fentanyl 2ml Vial) 50 mcg PRN Q5MIN PRN IVP MODERATE PAIN 4-6 Last administered on 10/07/21at 15:30; Start 10/07/21 at 06:00; Stop 10/07/21 at 16:43; Status DC Morphine Sulfate (Morphine Sulfate) 1 mg PRN Q10MIN PRN IVP SEVERE PAIN 7-10; Start 10/07/21 at 06:00; Stop 10/07/21 at 16:48; Status DC Ringer's Solution 1,000 ml @ 30 mls/hr Q24H IV Last administered on 10/07/21at 07:37; Start 10/07/21 at 06:00; Stop 10/07/21 at 17:59; Status DC Hydromorphone HCl (Dilaudid) 0.5 mg PRN Q10MIN PRN IVP SEVERE PAIN 7-10, 2nd CHOICE; Start 10/07/21 at 06:00; Stop 10/07/21 at 16:43; Status DC Prochlorperazine Edisylate (Compazine) 5 mg PACU PRN PRN IVP NAUSEA, MRX1 Last administered on 10/07/21at 15:34; Start 10/07/21 at 06:00; Stop 10/07/21 at 16:43; Status DC Cefazolin Sodium/ Dextrose 50 ml @ 100 mls/hr 1X PREOP PRN IV PRIOR TO PROCEDURE Last administered on 10/07/21at 09:00; Start 10/07/21 at 06:00; Stop 10/07/21 at 16:41; Status DC Gelatin (Gelfoam Size 100) 1 each STK-MED ONCE .ROUTE Last administered on 10/07/21at 10:25; Start 10/07/21 at 06:35; Stop 10/07/21 at 06:35; Status DC Bupivacaine HCl/ Epinephrine Bitart (Sensorcain-Epi 0.5% Kit) 30 ml STK-MED ONCE .ROUTE Last administered on 10/07/21 10:25; Start 10/07/21 at 06:35; Stop 10/07/21 at 06:35; Status DC Ketorolac Tromethamine (Toradol Im) 60 mg STK-MED ONCE .ROUTE Last administered on 10/07/21 10:25; Start 10/07/21 at 06:35; Stop 10/07/21 at 06:35; Status DC Thrombin 20,000 unit STK-MED ONCE TP Last administered on 10/07/21at 10:25; Start 10/07/21 at 06:35; Stop 10/07/21 at 06:35; Status DC Vancomycin HCl 1 gm/Sodium Chloride 250 ml @ 250 mls/hr PREOP PRN PRN IV PRIOR TO PROCEDURE Last administered on 10/07/21at 09:20; Start 10/08/21 at 06:00; St op 10/07/21 at 16:47; Status DC Insulin Human Lispro (HumaLOG VIAL for OP,RR ONLY) 0-10 units PRN Q1HR PRN SQ PER PROTOCOL Last administered on 10/07/21at 15:07; Start 10/07/21 at 07:45; Stop 10/07/21 at 16:43; Status DC Propofol (Diprivan) 200 mg STK-MED ONCE IV ; Start 10/07/21 at 06:28; Stop 10/07/21 at 08:28; Status DC Glycopyrrolate (Robinul) 1 mg STK-MED ONCE .ROUTE ; Start 10/07/21 at 06:28; Stop 10/07/21 at 08:28; Status DC Dexamethasone Sodium Phosphate (Decadron) 4 mg STK-MED ONCE .ROUTE ; Start 10/07/21 at 06:28; Stop 10/07/21 at 08:29; Status DC Lidocaine HCl (Lidocaine Pf 2% Vial) 5 ml STK-MED ONCE .ROUTE ; Start 10/07/21 at 06:28; Stop 10/07/21 at 08:29; Status DC Ondansetron HCl (Zofran) 4 mg STK-MED ONCE .ROUTE ; Start 10/07/21 at 06:28; Stop 10/07/21 at 08:29; Status DC Phenylephrine HCl (PHENYLEPHRINE in 0.9% NACL PF) 1 mg STK-MED ONCE IV ; Start 10/07/21 at 06:28; Stop 10/07/21 at 08:29; Status DC Sugammadex Sodium (Bridion) 200 mg 1X ONCE IVP ; Start 10/07/21 at 08:45; Stop 10/07/21 at 08:46; Status DC Fentanyl Citrate (Fentanyl 2ml Vial) 100 mcg STK-MED ONCE .ROUTE ; Start 10/07/21 at 06:30; Stop 10/07/21 at 08:30; Status DC Succinylcholine Chloride (Anectine) 200 mg STK-MED ONCE .ROUTE ; Start 10/07/21 at 06:30; Stop 10/07/21 at 08:30; Status DC Rocuronium Hardesty (Zemuron) 50 mg STK-MED ONCE .ROUTE ; Start 10/07/21 at 06:30; Stop 10/07/21 at 08:30; Status DC Midazolam HCl (Versed) 2 mg STK-MED ONCE .ROUTE ; Start 10/07/21 at 06:30; Stop 10/07/21 at 08:31; Status DC Remifentanil HCl (Ultiva) 1 mg STK-MED ONCE IV ; Start 10/07/21 at 06:31; Stop 10/07/21 at 08:31; Status DC Sodium Chloride (SODIUM CHLORIDE 20ml) 20 ml STK-MED ONCE IJ ; Start 10/07/21 at 06:31; Stop 10/07/21 at 08:31; Status DC Propofol 50 ml @ As Directed STK-MED ONCE IV ; Start 10/07/21 at 06:50; Stop 10/07/21 at 08:50; Status DC Carbidopa/Levodopa (Sinemet 25/100) 1 tab DAILY08 PO Last administered on 10/09/21at 08:09; Start 10/08/21 at 08:00 Carbidopa/Levodopa (Sinemet 25/100) 1.5 tab TID PO Last administered on 10/09/21at 08:10; Start 10/07/21 at 14:00 Insulin Human Lispro (HumaLOG) 5-10 UNITS home slid... PRN BFRMEAL PRN SQ diabetes control; Start 10/07/21 at 11:45; Status UNV Levothyroxine Sodium (Synthroid) 125 mcg DAILY06 PO Last administered on at 06:21; Start 10/08/21 at 06:00 Losartan Potassium (Cozaar) 50 mg DAILY PO Last administered on 10/09/21at 08:11; Start 10/07/21 at 10:00 Metoprolol Succinate (Toprol Xl) 25 mg DAILY PO ; Start 10/08/21 at 09:00 Pioglitazone HCl (Actos) 15 mg DAILY PO Last administered on 10/09/21 08:10; Start 10/07/21 at 12:00 Polyethylene Glycol (miraLAX PACKET) 8.5 gm DAILY PO Last administered on 10/09/21 08:11; Start 10/07/21 at 12:00 Sennosides (Senna) 8.6 mg DAILY PO Last administered on 10/09/21 08:09; Start 10/07/21 at 12:00 Non-Formulary Medication (Alendronate Sodium ) 70 mg WEEKLY PO ; Start 10/14/21 at 09:00; Status UNV Bupropion HCl (Wellbutrin Xl) 300 mg DAILY PO Last administered on 10/09/21 08:10; Start 10/07/21 at 12:00 Calcium/Vitamin D (Oscal D 500mg/ 200uts) 1 tab DAILY PO Last administered on 10/09/21 08:09; Start 10/07/21 at 12:00 Gabapentin (Neurontin) 300 mg BIDACBL PO Last administered on 10/09/21 11:41; Start 10/07/21 at 11:30 Gabapentin (Neurontin) 600 mg HS PO Last administered on 10/08/21 21:57; Start 10/07/21 at 21:00 Insulin Glargine (Lantus Syringe) 15 unit QHS SQ Last administered on 10/08/21 22:00; Start 10/07/21 at 21:00 Cetirizine HCl (ZyrTEC) 10 mg PRN DAILY PRN PO ALLERGIES; Start 10/07/21 at 11:15 Ondansetron HCl (Zofran Odt) 8 mg PRN DAILY PRN PO NAUSEA/VOMITING; Start 10/07/21 at 11:15 Ropinirole HCl (Requip) 0.5 mg BIDACBL PO Last administered on 10/09/21 11:41; Start 10/07/21 at 11:30 Atorvastatin Calcium (Lipitor) 80 mg HS PO Last administered on 10/08/21 21 :58; Start 10/07/21 at 21:00 Non-Formulary Medication (Tegaserod Hydrogen Maleate (Zelnorm)) 6 mg BID PO ; Start 10/07/21 at 21:00; Stop 10/09/21 at 07:05; Status DC Non-Formulary Medication (Ubidecarenone (Coq10)) 200 mg DAILY PO ; Start 10/08/21 at 09:00; Status UNV Fentanyl Citrate (Fentanyl 2ml Vial) 50 mcg PRN Q2HR PRN IVP MODERATE TO SEVERE PAIN Last administered on 10/07/21at 18:15; Start 10/07/21 at 10:15 Vancomycin HCl 1 gm/Sodium Chloride 250 ml @ 250 mls/hr 1X ONCE IV Last administered on 10/07/21at 21:42; Start 10/07/21 at 21:00; Stop 10/07/21 at 21:59; Status DC Acetaminophen (Tylenol) 650 mg PRN Q6HRS PRN PO MILD PAIN / TEMP > 100.3'F; Start 10/07/21 at 10:15 Al Hydroxide/Mg Hydroxide (Mylanta Plus Xs) 30 ml PRN Q3HRS PRN PO HEARTBURN / GAS; Start 10/07/21 at 10:15 Calcium Carbonate/ Glycine (Tums) 500 mg PRN Q3HRS PRN PO INDIGESTION; Start 10/07/21 at 10:15 Diphenhydramine HCl (Benadryl) 25 mg PRN Q6HRS PRN PO ITCHING; Start 10/07/21 at 10:15 Naloxone HCl (Narcan) 0.1 mg PRN Q2MIN PRN IV SEE COMMENTS; Start 10/07/21 at 10:15 Sodium Chloride (Normal Saline Flush) 3 ml QSHIFT PRN IV AFTER MEDS AND BLOOD DRAWS; Start 10/07/21 at 10:15 Potassium Chloride/Sodium Chloride 1,000 ml @ 75 mls/hr [id number] IV Last administered on 10/07/21at 20:01; Start 10/07/21 at 10:15; Stop 10/09/21 at 06:04; Status DC Oxycodone/ Acetaminophen (Percocet 5/325) 1 tab PRN Q4HRS PRN PO MILD PAIN, 1ST CHOICE Last administered on 10/09/21at 12:42; Start 10/07/21 at 10:15 Oxycodone/ Acetaminophen (Percocet 5/325) 2 tab PRN Q4HRS PRN PO MODERATE PAIN, SEVERE PAIN; Start 10/07/21 at 10:15 Methocarbamol (Robaxin) 750 mg PRN TID PRN PO MUSCLE SPASMS Last administered on 10/08/21at 07:52; Start 10/07/21 at 10:15 Docusate Sodium (Colace) 100 mg BID PO Last administered on 10/09/21at 08:10; Start 10/07/21 at 12:00 Magnesium Hydroxide (Milk Of Magnesia) 2,400 mg PRN Q12HR PRN PO CONSTIPATION; Start 10/07/21 at 10:15 Dextrose (Dextrose 50%-Water Syringe) 12.5 gm PRN Q15MIN PRN IV SEE COMMENTS; Start 10/07/21 at 10:15 Dextrose (Iv Dextrose 5%) 250 ml PRN Q15MIN PRN IV SEE COMMENTS; Start 10/07/21 at 10:15 Ketamine HCl (Ketamine) 50 mg STK-MED ONCE .ROUTE ; Start 10/07/21 at 08:30; Stop 10/07/21 at 10:30; Status DC Lidocaine HCl (Lidocaine Pf 2% Vial) 5 ml STK-MED ONCE .ROUTE ; Start 10/07/21 at 08:31; Stop 10/07/21 at 10:32; Status DC Lidocaine HCl (Lidocaine Pf 2% Vial) 5 ml STK-MED ONCE .ROUTE ; Start 10/07/21 at 08:31; Stop 10/07/21 at 10:32; Status DC Sodium Chloride (SODIUM CHLORIDE 20ml) 20 ml STK-MED ONCE IJ ; Start 10/07/21 at 08:31; Stop 10/07/21 at 10:32; Status DC Sodium Chloride (SODIUM CHLORIDE 20ml) 20 ml STK-MED ONCE IJ ; Start 10/07/21 at 08:34; Stop 10/07/21 at 10:34; Status DC Remifentanil HCl (Ultiva) 1 mg STK-MED ONCE IV ; Start 10/07/21 at 08:48; Stop 10/07/21 at 10:48; Status DC Sodium Chloride (SODIUM CHLORIDE 20ml) 20 ml STK-MED ONCE IJ ; Start 10/07/21 at 08:48; Stop 10/07/21 at 10:49; Status DC Sevoflurane (Ultane) 90 ml STK-MED ONCE IH ; Start 10/07/21 at 09:34; Stop 10/07/21 at 11:34; Status DC Ketamine HCl (Ketamine) 50 mg STK-MED ONCE .ROUTE ; Start 10/07/21 at 10:05; Stop 10/07/21 at 12:06; Status DC Lidocaine HCl (Lidocaine Pf 2% Vial) 5 ml STK-MED ONCE .ROUTE ; Start 10/07/21 at 10:06; Stop 10/07/21 at 12:06; Status DC Lidocaine HCl (Lidocaine Pf 2% Vial) 5 ml STK-MED ONCE .ROUTE ; Start 10/07/21 at 10:06; Stop 10/07/21 at 12:06; Status DC Sodium Chloride (SODIUM CHLORIDE 20ml) 20 ml STK-MED ONCE IJ ; Start 10/07/21 at 10:06; Stop 10/07/21 at 12:06; Status DC Sodium Chloride (SODIUM CHLORIDE 20ml) 20 ml STK-MED ONCE IJ ; Start 10/07/21 at 10:06; Stop 10/07/21 at 12:06; Status DC Remifentanil HCl (Ultiva) 1 mg STK-MED ONCE IV ; Start 10/07/21 at 10:42; Stop 10/07/21 at 12:42; Status DC Sodium Chloride (SODIUM CHLORIDE 20ml) 20 ml STK-MED ONCE IJ ; Start 10/07/21 at 10:42; Stop 10/07/21 at 12:42; Status DC Phenylephrine HCl (Franklin-Synephrine Inj) 10 mg STK-MED ONCE .ROUTE ; Start 10/07/21 at 11:00; Stop 10/07/21 at 13:01; Status DC Cefazolin Sodium (Ancef) 1 gm STK-MED ONCE IVP ; Start 10/07/21 at 11:29; Stop 10/07/21 at 13:30; Status DC Gelatin (Gelfoam Size 100) 1 each STK-MED ONCE .ROUTE Last administered on 10/07/21at 14:14; Start 10/07/21 at 14:12; Stop 10/07/21 at 14:13; Status DC Thrombin 20,000 unit STK-MED ONCE TP Last administered on 10/07/21at 14:14; Start 10/07/21 at 14:12; Stop 10/07/21 at 14:13; Status DC Fentanyl Citrate (Fentanyl 2ml Vial) 100 mcg STK-MED ONCE .ROUTE ; Start 10/07/21 at 12:17; Stop 10/07/21 at 14:17; Status DC Fentanyl Citrate (Fentanyl 2ml Vial) 100 mcg STK-MED ONCE .ROUTE ; Start 10/07/21 at 15:20; Stop 10/07/21 at 15:20; Status DC Insulin Human Lispro (HumaLOG) 0-9 UNITS TIDWMEALS SQ Last administered on 10/09/21at 11:45; Start 10/07/21 at 17:00 Dextrose (Dextrose 50%-Water Syringe) 12.5 gm PRN Q15MIN PRN IV SEE COMMENTS; Start 10/07/21 at 16:30; Status UNV Dextrose (Iv Dextrose 5%) 250 ml PRN Q15MIN PRN IV SEE COMMENTS; Start 10/07/21 at 16:30; Status UNV Sennosides (Senna) 17.2 mg PRN BID PRN PO CONSTIPATION; Start 10/08/21 at 11:30 Methylprednisolone (Medrol) 8 mg BID PO Last administered on 10/08/21at 21:59; Start 10/08/21 at 12:00; Stop 10/08/21 at 21:01; Status DC Methylprednisolone (Medrol) 4 mg BIDPCLD PO Last administered on 10/08/21at 18:23; Start 10/08/21 at 13:30; Stop 10/08/21 at 17:31; Status DC Methylprednisolone (Medrol) 4 mg TIDPC PO Last administered on 10/09/21at 11:41; Start 10/09/21 at 08:30; Stop 10/09/21 at 17:31 Methylprednisolone (Medrol) 8 mg QHS PO ; Start 10/09/21 at 21:00; Stop 10/09/21 at 21:01 Methylprednisolone (Medrol) 4 mg QIDAFTMEAL PO ; Start 10/10/21 at 09:00; Stop 10/10/21 at 21:01 Methylprednisolone (Medrol) 4 mg TID PO ; Start 10/11/21 at 09:00; Stop 10/11/21 at 21:01 Methylprednisolone (Medrol) 4 mg BID PO ; Start 10/12/21 at 09:00; Stop 10/12/21 at 21:01 Methylprednisolone (Medrol) 4 mg DAILY PO ; Start 10/13/21 at 09:00; Stop 10/13/21 at 09:01 Tramadol HCl (Ultram) 50 mg PRN Q6HRS PRN PO PAIN; Start 10/09/21 at 13:30 Active Scripts Active Reported Crestor (Rosuvastatin Calcium) 5 Mg Tablet 20 Mg PO HS Losartan Potassium 50 Mg Tablet 50 Mg PO DAILY Actos (Pioglitazone Hcl) 15 Mg Tablet 15 Mg PO DAILY Tresiba (Insulin Degludec) 100 Unit/1 Ml Vial 15 Unit SQ HS Humalog (Insulin Lispro) 100 Unit/1 Ml Vial 5-10 Unit SQ PRN BFRMEAL PRN Calcium 500+D Tablet Chew (Calcium Carbonate/Vitamin D3) 1 Each Tab.chew 1 Each PO DAILY Coq10 (Ubidecarenone) 50 Mg Tab.chew 200 Mg PO DAILY Ondansetron Odt (Ondansetron) 8 Mg Tab.rapdis 8 Mg PO DAILY PRN Miralax (Polyethylene Glycol 3350) 17 Gm Powd.pack 0.5 Pkt PO DAILY Senna Laxative (Sennosides) 8.6 Mg Tablet 8.6 Mg PO DAILY Claritin (Loratadine) 10 Mg Capsule 10 Mg PO DAILY PRN Zelnorm (Tegaserod Hydrogen Maleate) 6 Mg Tablet 6 Mg PO BID Alendronate Sodium 70 Mg Tablet 70 Mg PO WEEKLY Wellbutrin Xl (Bupropion Hcl) 300 Mg Tab.er.24h 300 Mg PO DAILY Gabapentin 600 Mg Tablet 600 Mg PO HS Gabapentin 600 Mg Tablet 300 Mg PO BIDACBL Metoprolol Succinate ( Xl ) (Metoprolol Succinate) 25 Mg Tab.er.24h 25 Mg PO DAILY Ropinirole Hcl 0.5 Mg Tablet 0.5 Mg PO BIDACBL Sinemet 25-100 Mg Tablet (Carbidopa/Levodopa) 1 Each Tablet 1.5 Tab PO TID Sinemet 25-100 Mg Tablet (Carbidopa/Levodopa) 1 Each Tablet 1 Tab PO DAILY08 Levothyroxine Sodium 125 Mcg Tablet 125 Mcg PO DAILYAC Vitals/I & O Vital Sign - Last 24 Hours 10/08/21 10/08/21 10/08/21 10/08/21 15:00 15:56 16:30 19:00 Temp 98.4 98.5 98.4 98.5 Pulse 101 109 Resp 16 18 B/P (MAP) 94/43 (60) 120/59 (79) Pulse Ox 98 95 O2 Delivery Room Air Room Air Room Air Room Air 10/08/21 10/08/21 10/08/21 10/08/21 20:00 21:58 22:28 23:00 Temp 98.3 98.3 Pulse 107 Resp 20 20 18 B/P (MAP) 115/49 (71) Pulse Ox 94 O2 Delivery Room Air Room Air Room Air Room Air 10/09/21 10/09/21 10/09/21 10/09/21 03:00 04:13 04:43 07:00 Temp 99.0 98.2 99.0 98.2 Pulse 104 90 Resp 18 20 20 18 B/P (MAP) 116/56 (76) 114/52 (72) Pulse Ox 96 92 O2 Delivery Room Air Room Air Room Air Room Air 10/09/21 10/09/21 10/09/21 10/09/21 08:00 08:11 08:20 08:50 Pulse 90 B/P (MAP) 114/52 O2 Delivery Room Air Room Air Room Air 10/09/21 10/09/21 10/09/21 11:00 12:42 13:12 Temp 98.2 98.2 Pulse 89 Resp 16 B/P (MAP) 112/52 (72) Pulse Ox 93 O2 Delivery Room Air Room Air Room Air Justifications for Admission Other Justification HANY CAMPOVERDE MD Oct 09, 2021 14:04
[2021-10-09 15:00] VITALS: BP 110/54
[2021-10-09 19:00] VITALS: BP 110/50
[2021-10-09] MEDS ORDERED: methylPREDNISolone 4 MG TABLET. PO SCH (21:00)
[2021-10-09] MEDS: ATORVASTATIN CALCIUM 40 MG TABLET. PO SCH (22:00)
[2021-10-09] MEDS: INSULIN GLARGINE SYRINGE. SQ SCH (22:07)
[2021-10-09 23:00] VITALS: BP 114/63
[2021-10-10 03:00] VITALS: BP 117/53
[2021-10-10] MEDS: oxyCODONE/APAP 5/325 1 TAB TABLET PO PRN ×4 (05:08→20:28)
[2021-10-10] MEDS: GABAPENTIN 300 MG CAPSULE. PO SCH ×4 (06:42→21:17)
[2021-10-10] MEDS: rOPINIRole 0.25 MG TABLET. PO SCH ×2 (06:42→12:03)
[2021-10-10] MEDS: LEVOTHYROXINE 125 MCG TABLET PO SCH (06:42)
[2021-10-10 07:15] VITALS: BP 110/54
[2021-10-10] MEDS: DOCUSATE SODIUM 100 MG CAPSULE. PO SCH ×2 (08:22→21:18)
[2021-10-10] MEDS: methylPREDNISolone 4 MG TABLET. PO SCH ×4 (08:22→21:18)
[2021-10-10] MEDS: SENNOSIDES 8.6 MG TABLET PO SCH (08:22)
[2021-10-10] MEDS: METHOCARBAMOL 750 MG TABLET PO PRN (08:23)
[2021-10-10] MEDS: CARBIDOPA/LEVODOPA 25/100MG TABLET PO SCH ×4 (08:23→21:18)
[2021-10-10] MEDS: LOSARTAN POTASSIUM 50 MG TABLET. PO SCH (08:23)
[2021-10-10] MEDS: PIOGLITAZONE 15 MG TABLET. PO SCH (08:23)
[2021-10-10] MEDS: CALCIUM CARB/VIT D3 500/200 TABLET. PO SCH (08:23)
[2021-10-10] MEDS: buPROPion XL 150 MG TAB.ER.24H. PO SCH (08:23)
[2021-10-10] MEDS: METOPROLOL SUCC 24HR ER 25 MG TAB.ER.24H. PO SCH (08:24)
[2021-10-10] MEDS: POLYETHYLENE GLYCOL 3350 17 GM PACKET. PO SCH (08:24)
[2021-10-10] MEDS: INSULIN LISPRO 300 UNITS/3 ML VIAL. SQ SCH ×3 (08:30→17:14)
[2021-10-10 11:03] VITALS: BP 110/48
--- NOTE | 2021-10-10 11:44 | PREOP HP ---
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 She has progressive difficulty with pain in her buttocks, and posterior thighs. Both sides are equally involved. The problem started in 04/2020. It became much worse in 08/2020. She says her pain is 9/10 at its worst. Mornings are the worst for her. She says she has trouble standing up straight. Lying down and leaning forward can help her some. She has been taking Tylenol, gabapentin and tizanidine. She has a history of Parkinson's disease as well as osteoporosis. She underwent physical therapy and had some temporary benefit. She is doing physical therapy exercises at home. She uses a cane. She did fall a few months ago. CURRENT MEDICATIONS: MiraLax, Benadryl, Claritin, Requip, Zofran, NovoLog, Actos, Sinemet, Pravachol, metoprolol, losartan, Wellbutrin, senna, levothyroxine, tizanidine, Mobic, gabapentin, Tylenol. PAST MEDICAL HISTORY: Parkinson's, osteoporosis, diabetes, thyroid disease. PAST SURGICAL HISTORY: x2 and knee surgery. FAMILY HISTORY: Diabetes, heart disease. 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 Drinks alcohol 1-2 times per year. ALLERGIES: BETADINE. REVIEW OF SYSTEMS: A 12-point review of systems was performed and is noncontributory except that mentioned above. PHYSICAL EXAMINATION: GENERAL: Alert, pleasant, in no acute distress. HEENT: Head is normocephalic, atraumatic. SKIN: Warm and dry. MUSCULOSKELETAL: Lumbar paraspinal muscle bulk is normal, restricted range of motion of the lumbar spine, [id number] tenderness of the lower lumbar spine with palpation, normal range of motion of the lower extremities bilaterally. EXTREMITIES: No clubbing, cyanosis or edema. NEUROLOGIC: Alert and oriented x3. Strength is 5/5 in the lower extremities bilaterally. Sensory was intact to light touch in the lower extremities bilaterally. Reflexes were present and symmetric in the lower extremities bilaterally, negative straight leg raising, forward stooped gait, ambulates with a cane. IMAGING: I reviewed her imaging studies. She has severe central canal stenosis at L3-4 and moderate canal stenosis at L4-5. She has a grade I anterolisthesis at L3-4, L4-5 and L5-S1. She had lumbar flexion, extension x-rays. On those studies, her anterolisthesis at L5-S1 does not move. Both at L3-4 and to a greater extent at L4-5, there is significant motion on flexion and extension. ASSESSMENT AND PLAN: She is going to require in addition to decompression at least at L3-4 posterior instrumentation L3, L4, L5 along with a posterolateral fusion. I did discuss this with her. We spoke about the technique, the rationale, the risk and the expected postoperative course. She understands and would like to proceed. We are going to make the arrangements. JONAH DR: Vinny TID: [id number]
[2021-10-10] MEDS: fentaNYL PF VIAL 100 MCG/2 ML VIAL IVP PRN (13:03)
[2021-10-10] MEDS ORDERED: MAGNESIUM HYDROXIDE 2,400 MG/30 ML ORAL.SUSP. PO PRN (14:45)
[2021-10-10 15:11] VITALS: BP 95/43
[2021-10-10] MEDS: BISACODYL 5 MG TABLET.DR. PO SCH (15:33)
--- NOTE | 2021-10-10 15:39 | RAD ---
XR LUMBAR SPINE 2-3V History: Status post lumbar fusion Comparison: None. Technique: 2 views of the lumbar spine. Findings: There are 5 non-rib bearing lumbar vertebral segments. Posterior spinal fixation from L3-L5. No evide nce of loosening or component fracture. There is no evidence of fracture. No destructive osseous lesions. Exaggerated lumbar lordosis. Mild anterolisthesis of L4 on L5. Multilevel lumbar facet hypertrophy. Disc space narrowing L3-L4 and L4-L5. Disc Sacroiliac joints are unremarkable. Atherosclerotic calcifications aorta. IMPRESSION: 1. Postsurgical features from L3-L5 posterior spinal fixation without evidence of complication. Electronically signed by: Nithin Tiwari MD (10/10/2021 3:37 PM) [id number]
--- NOTE | 2021-10-10 15:48 | PDOC ---
PROGRESS NOTES Date of Service DATE: 10/10/21 TIME: 15:45 Subjective Subjective POD #3 S/P laminectomy L3-4 and fusion L3-5 up in chair back sore, left thigh pain increased with walking Objective Objective Vital Signs Date Time Temp Pulse Resp B/P (MAP) Pulse Ox O2 Delivery O2 Flow Rate FiO2 10/10/21 15:36 Room Air 10/10/21 15:11 98.1 97 18 95/43 (60) 96 98.1 10/10/21 02:02 3.0 Intake and Output 10/10/21 07:00 # Voids 6 Physical Exam General: Alert, Oriented X3, Cooperative MUSCULOSKELETAL: Other (HERRERA) Neuro: Normal speech Skin: Other (dressing changed, dry, flat) Plan Plan of Care encouraged increased activity as tolerated PT Brace when up possible dc tomorrow rehab/ SNF D/W RN Comment Review of Relevant I have reviewed the following items ene (where applicable) has been applied. Labs Laboratory Tests Test 10/08/21 17:09 10/08/21 20:11 10/09/21 08:09 10/09/21 11:41 Glucose (Fingerstick) 271 mg/dL (70-99) 274 mg/dL (70-99) 207 mg/dL (70-99) 244 mg/dL (70-99) Test 10/09/21 16:57 10/09/21 20:14 10/10/21 07:23 10/10/21 10:39 Glucose (Fingerstick) 362 mg/dL (70-99) 292 mg/dL (70-99) 240 mg/dL (70-99) 286 mg/dL (70-99) Laboratory Tests Test 10/09/21 16:57 10/09/21 20:14 10/10/21 07:23 10/10/21 10:39 Glucose (Fingerstick) 362 mg/dL (70-99) 292 mg/dL (70-99) 240 mg/dL (70-99) 286 mg/dL (70-99) Medications Current Medications Cefazolin Sodium 1 gm/Sodium Chloride 1,000 ml @ 1,000 mls/hr 1X ONCE IRR Last administered on 09/29/21at 13:00; Start 09/29/21 at 06:00; Stop 09/29/21 at 06:59; Status DC Fentanyl Citrate (Fentanyl 2ml Vial) 25 mcg PRN Q5MIN PRN IVP MILD PAIN 1-3; Start 09/29/21 at 06:00; Stop 09/30/21 at 05:59; Status DC Fentanyl Citrate (Fentanyl 2ml Vial) 50 mcg PRN Q5MIN PRN IVP MODERATE PAIN 4- 6; Start 09/29/21 at 06:00; Stop 09/30/21 at 05:59; Status DC Morphine Sulfate (Morphine Sulfate) 1 mg PRN Q10MIN PRN IVP SEVERE PAIN 7-10; Start 09/29/21 at 06:00; Stop 09/30/21 at 05:59; Status DC Ringer's Solution 1,000 ml @ 30 mls/hr Q24H IV ; Start 09/29/21 at 06:00; Stop 09/29/21 at 17:59; Status DC Hydromorphone HCl (Dilaudid) 0.5 mg PRN Q10MIN PRN IVP SEVERE PAIN 7-10, 2nd CHOICE; Start 09/29/21 at 06:00; Stop 09/30/21 at 05:59; Status DC Prochlorperazine Edisylate (Compazine) 5 mg PACU PRN PRN IVP NAUSEA, MRX1; Start 09/29/21 at 06:00; Stop 09/30/21 at 05:59; Status DC Cefazolin Sodium/ Dextrose 50 ml @ 100 mls/hr 1X PREOP PRN IV PRIOR TO PROCEDURE; Start 09/29/21 at 06:00; Stop 09/29/21 at 18:00; Status DC Cefazolin Sodium 1 gm/Sodium Chloride 1,000 ml @ 1,000 mls/hr 1X ONCE IRR Last administered on 10/07/21at 10:25; Start 10/06/21 at 14:00; Stop 10/06/21 at 14:59; Status DC Fentanyl Citrate (Fentanyl 2ml Vial) 25 mcg PRN Q5MIN PRN IVP MILD PAIN 1-3; Start 10/07/21 at 06:00; Stop 10/07/21 at 16:43; Status DC Fentanyl Citrate (Fentanyl 2ml Vial) 50 mcg PRN Q5MIN PRN IVP MODERATE PAIN 4-6 Last administered on 10/07/21at 15:30; Start 10/07/21 at 06:00; Stop 10/07/21 at 16:43; Status DC Morphine Sulfate (Morphine Sulfate) 1 mg PRN Q10MIN PRN IVP SEVERE PAIN 7-10; Start 10/07/21 at 06:00; Stop 10/07/21 at 16:48; Status DC Ringer's Solution 1,000 ml @ 30 mls/hr Q24H IV Last administered on 10/07/21at 07:37; Start 10/07/21 at 06:00; Stop 10/07/21 at 17:59; Status DC Hydromorphone HCl (Dilaudid) 0.5 mg PRN Q10MIN PRN IVP SEVERE PAIN 7-10, 2nd CHOICE; Start 10/07/21 at 06:00; Stop 10/07/21 at 16:43; Status DC Prochlorperazine Edisylate (Compazine) 5 mg PACU PRN PRN IVP NAUSEA, MRX1 Last administered on 10/07/21at 15:34; Start 10/07/21 at 06:00; Stop 10/07/21 at 16:43; Status DC Cefazolin Sodium/ Dextrose 50 ml @ 100 mls/hr 1X PREOP PRN IV PRIOR TO PROCEDURE Last administered on 10/07/21at 09:00; Start 10/07/21 at 06:00; Stop 10/07/21 at 16:41; Status DC Gelatin (Gelfoam Size 100) 1 each STK-MED ONCE .ROUTE Last administered on 10/07/21at 10:25; Start 10/07/21 at 06:35; Stop 10/07/21 at 06:35; Status DC Bupivacaine HCl/ Epinephrine Bitart (Sensorcain-Epi 0.5% Kit) 30 ml STK-MED ONCE .ROUTE Last administered on 10/07/21at 10:25; Start 10/07/21 at 06:35; Stop 10/07/21 at 06:35; Status DC Ketorolac Tromethamine (Toradol Im) 60 mg STK-MED ONCE .ROUTE Last administered on 10/07/21at 10:25; Start 10/07/21 at 06:35; Stop 10/07/21 at 06:35; Status DC Thrombin 20,000 unit STK-MED ONCE TP Last administered on 10/07/21at 10:25; Start 10/07/21 at 06:35; Stop 10/07/21 at 06:35; Status DC Vancomycin HCl 1 gm/Sodium Chloride 250 ml @ 250 mls/hr PREOP PRN PRN IV PRIOR TO PROCEDURE Last administered on 10/07/21at 09:20; Start 10/08/21 at 06:00; Stop 10/07/21 at 16:47; Status DC Insulin Human Lispro (HumaLOG VIAL for OP,RR ONLY) 0-10 units PRN Q1HR PRN SQ PER PROTOCOL Last administered on 10/07/21at 15:07; Start 10/07/21 at 07:45; Stop 10/07/21 at 16:43; Status DC Propofol (Diprivan) 200 mg STK-MED ONCE IV ; Start 10/07/21 at 06:28; Stop 10/07/21 at 08:28; Status DC Glycopyrrolate (Robinul) 1 mg STK-MED ONCE .ROUTE ; Start 10/07/21 at 06:28; Stop 10/07/21 at 08:28; Status DC Dexamethasone Sodium Phosphate (Decadron) 4 mg STK-MED ONCE .ROUTE ; Start at 06:28; Stop 10/07/21 at 08:29; Status DC Lidocaine HCl (Lidocaine Pf 2% Vial) 5 ml STK-MED ONCE .ROUTE ; Start 10/07/21 at 06:28; Stop 10/07/21 at 08:29; Status DC Ondansetron HCl (Zofran) 4 mg STK-MED ONCE .ROUTE ; Start 10/07/21 at 06:28; Stop 10/07/21 at 08:29; Status DC Phenylephrine HCl (PHENYLEPHRINE in 0.9% NACL PF) 1 mg STK-MED ONCE IV ; Start 10/07/21 at 06:28; Stop 10/07/21 at 08:29; Status DC Sugammadex Sodium (Bridion) 200 mg 1X ONCE IVP ; Start 10/07/21 at 08:45; Stop 10/07/21 at 08:46; Status DC Fentanyl Citrate (Fentanyl 2ml Vial) 100 mcg STK-MED ONCE .ROUTE ; Start 10/07/21 at 06:30; Stop 10/07/21 at 08:30; Status DC Succinylcholine Chloride (Anectine) 200 mg STK-MED ONCE .ROUTE ; Start 10/07/21 at 06:30; Stop 10/07/21 at 08:30; Status DC Rocuronium Ward (Zemuron) 50 mg STK-MED ONCE .ROUTE ; Start 10/07/21 at 06:30; Stop 10/07/21 at 08:30; Status DC Midazolam HCl (Versed) 2 mg STK-MED ONCE .ROUTE ; Start 10/07/21 at 06:30; Stop 10/07/21 at 08:31; Status DC Remifentanil HCl (Ultiva) 1 mg STK-MED ONCE IV ; Start 10/07/21 at 06:31; Stop 10/07/21 at 08:31; Status DC Sodium Chloride (SODIUM CHLORIDE 20ml) 20 ml STK-MED ONCE IJ ; Start 10/07/21 at 06:31; Stop 10/07/21 at 08:31; Status DC Propofol 50 ml @ As Directed STK-MED ONCE IV ; Start 10/07/21 at 06:50; Stop 10/07/21 at 08:50; Status DC Carbidopa/Levodopa (Sinemet 25/100) 1 tab DAILY08 PO Last administered on 10/10/21at 08:23; Start 10/08/21 at 08:00 Carbidopa/Levodopa (Sinemet 25/100) 1.5 tab TID PO Last administered on 10/10/21at 13:04; Start 10/07/21 at 14:00 Insulin Human Lispro (HumaLOG) 5-10 UNITS home slid... PRN BFRMEAL PRN SQ diabetes control; Start 10/07/21 at 11:45; Status UNV Levothyroxine Sodium (Synthroid) 125 mcg DAILY06 PO Last administered on 10/10/21at 06:42; Start 10/08/21 at 06:00 Losartan Potassium (Cozaar) 50 mg DAILY PO Last administered on 10/10/21at 08:23; Start 10/07/21 at 10:00 Metoprolol Succinate (Toprol Xl) 25 mg DAILY PO Last administered on 10/10/21at 08:24; Start 10/08/21 at 09:00 Pioglitazone HCl (Actos) 15 mg DAILY PO Last administered on 10/10/21at 08:23; Start 10/07/21 at 12:00 Polyethylene Glycol (miraLAX PACKET) 8.5 gm DAILY PO Last administered on 10/10/21at 08:24; Start 10/07/21 at 12:00 Sennosides (Senna) 8.6 mg DAILY PO Last administered on 10/10/21at 08:22; Start 10/07/21 at 12:00 Non-Formulary Medication (Alendronate Sodium ) 70 mg WEEKLY PO ; Start 10/14/21 at 09:00; Status UNV Bupropion HCl (Wellbutrin Xl) 300 mg DAILY PO Last administered on 10/10/21at 08:23; Start 10/07/21 at 12:00 Calcium/Vitamin D (Oscal D 500mg/ 200uts) 1 tab DAILY PO Last administered on 10/10/21 08:23; Start 10/07/21 at 12:00 Gabapentin (Neurontin) 300 mg BIDACBL PO Last administered on 10/10/21at 12:03; Start 10/07/21 at 11:30; Stop 10/10/21 at 13:42; Status DC Gabapentin (Neurontin) 600 mg HS PO Last administered on 10/09/21at 22:01; Start 10/07/21 at 21:00; Stop 10/10/21 at 13:42; Status DC Insulin Glargine (Lantus Syringe) 15 unit QHS SQ Last administered on 10/09/21at 22:07; Start 10/07/21 at 21:00 Cetirizine HCl (ZyrTEC) 10 mg PRN DAILY PRN PO ALLERGIES; Start 10/07/21 at 11:15 Ondansetron HCl (Zofran Odt) 8 mg PRN DAILY PRN PO NAUSEA/VOMITING; Start 10/07/21 at 11:15 Ropinirole HCl (Requip) 0.5 mg BIDACBL PO Last administered on 10/10/21at 12:03; Start 10/07/21 at 11:30 Atorvastatin Calcium (Lipitor) 80 mg HS PO Last administered on 10/09/21at 22:00; Start 10/07/21 at 21:00 Non-Formulary Medication (Tegaserod Hydrogen Maleate (Zelnorm)) 6 mg BID PO ; Start 10/07/21 at 21:00; Stop 10/09/21 at 07:05; Status DC Non-Formulary Medication (Ubidecarenone (Coq10)) 200 mg DAILY PO ; Start 10/08/21 at 09:00; Status UNV Fentanyl Citrate (Fentanyl 2ml Vial) 50 mcg PRN Q2HR PRN IVP MODERATE TO SEVERE PAIN Last administered on 10/10/21at 13:03; Start 10/07/21 at 10:15 Vancomycin HCl 1 gm/Sodium Chloride 250 ml @ 250 mls/hr 1X ONCE IV Last administered on 10/07/21at 21:42; Start 10/07/21 at 21:00; Stop 10/07/21 at 21:59; Status DC Acetaminophen (Tylenol) 650 mg PRN Q6HRS PRN PO MILD PAIN / TEMP > 100.3'F; Start 10/07/21 at 10:15 Al Hydroxide/Mg Hydroxide (Mylanta Plus Xs) 30 ml PRN Q3HRS PRN PO HEARTBURN / GAS; Start 10/07/21 at 10:15 Calcium Carbonate/ Glycine (Tums) 500 mg PRN Q3HRS PRN PO INDIGESTION; Start 10/07/21 at 10:15 Diphenhydramine HCl (Benadryl) 25 mg PRN Q6HRS PRN PO ITCHING; Start 10/07/21 at 10:15 Naloxone HCl (Narcan) 0.1 mg PRN Q2MIN PRN IV SEE COMMENTS; Start 10/07/21 at 10:15 Sodium Chloride (Normal Saline Flush) 3 ml QSHIFT PRN IV AFTER MEDS AND BLOOD DRAWS; Start 10/07/21 at 10:15 Potassium Chloride/Sodium Chloride 1,000 ml @ 75 mls/hr [id number] IV Last administered on 10/07/21at 20:01; Start 10/07/21 at 10:15; Stop 10/09/21 at 06:04; Status DC Oxycodone/ Acetaminophen (Percocet 5/325) 1 tab PRN Q4HRS PRN PO MILD PAIN, 1ST CHOICE Last administered on 10/10/21at 09:26; Start 10/07/21 at 10:15 Oxycodone/ Acetaminophen (Percocet 5/325) 2 tab PRN Q4HRS PRN PO MODERATE PAIN, SEVERE PAIN Last administered on 10/10/21at 15:36; Start 10/07/21 at 10:15 Methocarbamol (Robaxin) 750 mg PRN TID PRN PO MUSCLE SPASMS Last administered on 10/10/21at 08:23; Start 10/07/21 at 10:15 Docusate Sodium (Colace) 100 mg BID PO Last administered on 10/10/21at 08:22; Start 10/07/21 at 12:00 Magnesium Hydroxide (Milk Of Magnesia) 2,400 mg PRN Q12HR PRN PO CONSTIPATION; Start 10/07/21 at 10:15 Dextrose (Dextrose 50%-Water Syringe) 12.5 gm PRN Q15MIN PRN IV SEE COMMENTS; Start 10/07/21 at 10:15 Dextrose (Iv Dextrose 5%) 250 ml PRN Q15MIN PRN IV SEE COMMENTS; Start 10/07/21 at 10:15 Ketamine HCl (Ketamine) 50 mg STK-MED ONCE .ROUTE ; Start 10/07/21 at 08:30; Stop 10/07/21 at 10:30; Status DC Lidocaine HCl (Lidocaine Pf 2% Vial) 5 ml STK-MED ONCE .ROUTE ; Start 10/07/21 at 08:31; Stop 10/07/21 at 10:32; Status DC Lidocaine HCl (Lidocaine Pf 2% Vial) 5 ml STK-MED ONCE .ROUTE ; Start 10/07/21 at 08:31; Stop 10/07/21 at 10:32; Status DC Sodium Chloride (SODIUM CHLORIDE 20ml) 20 ml STK-MED ONCE IJ ; Start 10/07/21 at 08:31; Stop 10/07/21 at 10:32; Status DC Sodium Chloride (SODIUM CHLORIDE 20ml) 20 ml STK-MED ONCE IJ ; Start 10/07/21 at 08:34; Stop 10/07/21 at 10:34; Status DC Remifentanil HCl (Ultiva) 1 mg STK-MED ONCE IV ; Start 10/07/21 at 08:48; Stop 10/07/21 at 10:48; Status DC Sodium Chloride (SODIUM CHLORIDE 20ml) 20 ml STK-MED ONCE IJ ; Start 10/07/21 at 08:48; Stop 10/07/21 at 10:49; Status DC Sevoflurane (Ultane) 90 ml STK-MED ONCE IH ; Start 10/07/21 at 09:34; Stop 10/07/21 at 11:34; Status DC Ketamine HCl (Ketamine) 50 mg STK-MED ONCE .ROUTE ; Start 10/07/21 at 10:05; Stop 10/07/21 at 12:06; Status DC Lidocaine HCl (Lidocaine Pf 2% Vial) 5 ml STK-MED ONCE .ROUTE ; Start 10/07/21 at 10:06; Stop 10/07/21 at 12:06; Status DC Lidocaine HCl (Lidocaine Pf 2% Vial) 5 ml STK-MED ONCE .ROUTE ; Start 10/07/21 at 10:06; Stop 10/07/21 at 12:06; Status DC Sodium Chloride (SODIUM CHLORIDE 20ml) 20 ml STK-MED ONCE IJ ; Start 10/07/21 at 10:06; Stop 10/07/21 at 12:06; Status DC Sodium Chloride (SODIUM CHLORIDE 20ml) 20 ml STK-MED ONCE IJ ; Start 10/07/21 at 10:06; Stop 10/07/21 at 12:06; Status DC Remifentanil HCl (Ultiva) 1 mg STK-MED ONCE IV ; Start 10/07/21 at 10:42; Stop 10/07/21 at 12:42; Status DC Sodium Chloride (SODIUM CHLORIDE 20ml) 20 ml STK-MED ONCE IJ ; Start 10/07/21 at 10:42; Stop 10/07/21 at 12:42; Status DC Phenylephrine HCl (Franklin-Synephrine Inj) 10 mg STK-MED ONCE .ROUTE ; Start 10/07/21 at 11:00; Stop 10/07/21 at 13:01; Status DC Cefazolin Sodium (Ancef) 1 gm STK-MED ONCE IVP ; Start 10/07/21 at 11:29; Stop 10/07/21 at 13:30; Status DC Gelatin (Gelfoam Size 100) 1 each STK-MED ONCE .ROUTE Last administered on 10/07/21at 14:14; Start 10/07/21 at 14:12; Stop 10/07/21 at 14:13; Status DC Thrombin 20,000 unit STK-MED ONCE TP Last administered on 10/07/21at 14:14; Start 10/07/21 at 14:12; Stop 10/07/21 at 14:13; Status DC Fentanyl Citrate (Fentanyl 2ml Vial) 100 mcg STK-MED ONCE .ROUTE ; Start 10/07/21 at 12:17; Stop 10/07/21 at 14:17; Status DC Fentanyl Citrate (Fentanyl 2ml Vial) 100 mcg STK-MED ONCE .ROUTE ; Start 10/07/21 at 15:20; Stop 10/07/21 at 15:20; Status DC Insulin Human Lispro (HumaLOG) 0-9 UNITS TIDWMEALS SQ Last administered on 10/10/21at 12:08; Start 10/07/21 at 17:00 Dextrose (Dextrose 50%-Water Syringe) 12.5 gm PRN Q15MIN PRN IV SEE COMMENTS; Start 10/07/21 at 16:30; Status UNV Dextrose (Iv Dextrose 5%) 250 ml PRN Q15MIN PRN IV SEE COMMENTS; Start 10/07/21 at 16:30; Status UNV Sennosides (Senna) 17.2 mg PRN BID PRN PO CONSTIPATION; Start 10/08/21 at 11:30 Methylprednisolone (Medrol) 8 mg BID PO Last administered on 10/08/21at 21:59; Start 10/08/21 at 12:00; Stop 10/08/21 at 21:01; Status DC Methylprednisolone (Medrol) 4 mg BIDPCLD PO Last administered on 10/08/21at 18:23; Start 10/08/21 at 13:30; Stop 10/08/21 at 17:31; Status DC Methylprednisolone (Medrol) 4 mg TIDPC PO Last administered on 10/09/21at 17:10; Start 10/09/21 at 08:30; Stop 10/09/21 at 17:31; Status DC Methylprednisolone (Medrol) 8 mg QHS PO Last administered on 10/09/21at 22:00; Start 10/09/21 at 21:00; Stop 10/09/21 at 21:01; Status DC Methylprednisolone (Medrol) 4 mg QIDAFTMEAL PO Last administered on 10/10/21at 12:03; Start 10/10/21 at 09:00; Stop 10/10/21 at 21:01 Methylprednisolone (Medrol) 4 mg TID PO ; Start 10/11/21 at 09:00; Stop 10/11/21 at 21:01 Methylprednisolone (Medrol) 4 mg BID PO ; Start 10/12/21 at 09:00; Stop 10/12/21 at 21:01 Methylprednisolone (Medrol) 4 mg DAILY PO ; Start 10/13/21 at 09:00; Stop 10/13/21 at 09:01 Tramadol HCl (Ultram) 50 mg PRN Q6HRS PRN PO PAIN Last administered on 10/09/21at 14:49; Start 10/09/21 at 13:30 Gabapentin (Neurontin) 600 mg TID PO Last administered on 10/10/21at 15:33; Start 10/10/21 at 14:00 Bisacodyl (Dulcolax Tab) 10 mg DAILY PO Last administered on 10/10/21at 15:33; Start 10/10/21 at 15:00 Magnesium Hydroxide (Milk Of Magnesia) 2,400 mg PRN DAILY PRN PO CONSTIPATION; Start 10/10/21 at 14:45 Active Scripts Active Reported Crestor (Rosuvastatin Calcium) 5 Mg Tablet 20 Mg PO HS Losartan Potassium 50 Mg Tablet 50 Mg PO DAILY Actos (Pioglitazone Hcl) 15 Mg Tablet 15 Mg PO DAILY Tresiba (Insulin Degludec) 100 Unit/1 Ml Vial 15 Unit SQ HS Humalog (Insulin Lispro) 100 Unit/1 Ml Vial 5-10 Unit SQ PRN BFRMEAL PRN Calcium 500+D Tablet Chew (Calcium Carbonate/Vitamin D3) 1 Each Tab.chew 1 Each PO DAILY Coq10 (Ubidecarenone) 50 Mg Tab.chew 200 Mg PO DAILY Ondansetron Odt (Ondansetron) 8 Mg Tab.rapdis 8 Mg PO DAILY PRN Miralax (Polyethylene Glycol 3350) 17 Gm Powd.pack 0.5 Pkt PO DAILY Senna Laxative (Sennosides) 8.6 Mg Tablet 8.6 Mg PO DAILY Claritin (Loratadine) 10 Mg Capsule 10 Mg PO DAILY PRN Zelnorm (Tegaserod Hydrogen Maleate) 6 Mg Tablet 6 Mg PO BID Alendronate Sodium 70 Mg Tablet 70 Mg PO WEEKLY Wellbutrin Xl (Bupropion Hcl) 300 Mg Tab.er.24h 300 Mg PO DAILY Gabapentin 600 Mg Tablet 600 Mg PO HS Gabapentin 600 Mg Tablet 300 Mg PO BIDACBL Metoprolol Succinate ( Xl ) (Metoprolol Succinate) 25 Mg Tab.er.24h 25 Mg PO DAILY Ropinirole Hcl 0.5 Mg Tablet 0.5 Mg PO BIDACBL Sinemet 25-100 Mg Tablet (Carbidopa/Levodopa) 1 Each Tablet 1.5 Tab PO TID Sinemet 25-100 Mg Tablet (Carbidopa/Levodopa) 1 Each Tablet 1 Tab PO DAILY08 Levothyroxine Sodium 125 Mcg Tablet 125 Mcg PO DAILYAC Vitals/I & O Vital Sign - Last 24 Hours 10/09/21 10/09/21 10/09/21 10/09/21 17:11 17:41 19:00 20:00 Temp 98.1 98.1 Pulse 102 Resp 18 B/P (MAP) 110/50 (70) Pulse Ox 96 O2 Delivery Room Air Room Air Room Air Room Air 10/09/21 10/09/21 10/09/21 10/10/21 22:13 22:43 23:00 02:02 Temp 99.2 99.2 Pulse 100 Resp 20 16 18 16 B/P (MAP) 114/63 (80) Pulse Ox 99 99 O2 Delivery Room Air Room Air Room Air Room Air O2 Flow Rate 3.0 10/10/21 10/10/21 10/10/21 10/10/21 03:00 05:08 05:38 07:15 Temp 98.1 98.2 98.1 98.2 Pulse 91 99 Resp 16 16 16 16 B/P (MAP) 117/53 (74) 110/54 (72) Pulse Ox 97 97 97 O2 Delivery Room Air Room Air Room Air Room Air 10/10/21 10/10/21 10/10/21 10/10/21 08:00 08:23 08:24 09:26 Pulse 99 99 B/P (MAP) 110/54 110/54 O2 Delivery Room Air Room Air 10/10/21 10/10/21 10/10/21 10/10/21 09:56 11:03 13:03 13:33 Temp 97.9 97.9 Pulse 97 Resp 18 B/P (MAP) 110/48 (68) Pulse Ox 96 O2 Delivery Room Air Room Air Room Air Room Air 10/10/21 10/10/21 15:11 15:36 Temp 98.1 98.1 Pulse 97 Resp 18 B/P (MAP) 95/43 (60) Pulse Ox 96 O2 Delivery Room Air Room Air Justifications for Admission Other Justification BRENDA LEAHY APRN Oct 10, 2021 15:48
[2021-10-10 19:00] VITALS: BP 105/49
--- NOTE | 2021-10-10 20:43 | CONS ---
DATE OF CONSULTATION: 10/10/2021 ATTENDING PHYSICIAN: Dr. Messina. REASON FOR CONSULTATION: The patient was seen at the request of Dr. Messina for rehab evaluation. 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 The patient with chronic lower back pain with lumbar radiculitis with radiological evidence of degenerative disk disease and degenerative joint disease and lumbar spondylolisthesis causing lumbar spinal stenosis. She underwent lumbar decompression laminectomy and fusion done on 10/07/2021. Postop, she is having some pain and aching pain in her left thigh area. The patient has been participating in physical therapy. Progress has been slow. The patient prior to the present hospitalization has been using a wheelchair, walker and cane to get around. She does not drive. Her drives her to work and she uses her wheelchair while at work in her office. PAST MEDICAL HISTORY: Parkinson's disease, osteoporosis, diabetes mellitus, Charcot foot, right thyroid disease, status post and knee surgery. FAMILY HISTORY: Diabetes and heart disease. SOCIAL HISTORY: The patient lives with her , had few steps to manage. The patient admits constipation. She denies any trouble with bladder control. ALLERGIES: THE PATIENT IS KNOWN ALLERGIC TO BETADINE. PHYSICAL EXAMINATION: GENERAL: Today revealed a middle-aged female. She is alert, oriented to time, place, person and circumstance, follows commands appropriately. NEUROLOGIC: Moves all 4 extremities voluntarily where she had 4+/5 grade muscle strength. Deep tendon reflexes are 1-2+ and symmetrical with absent ankle jerks and she had decreased touch and pinprick sensation over both feet when compared to proximal aspects of her lower extremities. She had painful range of motion of both hip and knee and ankle joints. No tenderness to palpation over trochanteric bursa area or around knees or hamstring muscles or thigh muscles or her ankles. The patient had lumbar corset on loosely. Patient is independent rolling from side to side and she requires minimal assistance in coming to a sitting position. Once up, she can walk slowly using a wide-based gait. She gets tired easily. She had dressing to her lumbar spine area. Straight leg raising test is negative bilaterally. ASSESSMENT: A middle-aged female status post lumbar decompression laminectomy and fusion for treatment of degenerative disk disease and degenerative joint disease with associated spondylolisthesis and central spinal stenosis, date of surgery is 10/07/2021. Diabetes mellitus with peripheral neuropathy and Charcot foot right, Parkinson's disease, osteoporosis, thyroid disease. RECOMMENDATIONS: Agree with the plan for physical therapy and occupational therapy to ask for a screen for transfer to inpatient rehabilitation unit for a short stay when medically stable. Dr. Messina, I appreciate asking me to participate in the care of this interesting patient. I will be glad to see her for followup with you on as needed basis. KIRIT DR: Heydi TID: [id number]
[2021-10-10] MEDS: ATORVASTATIN CALCIUM 40 MG TABLET. PO SCH (21:17)
[2021-10-10] MEDS: INSULIN GLARGINE SYRINGE. SQ SCH (21:26)
[2021-10-10 23:00] VITALS: BP 114/49
[2021-10-11] MEDS: oxyCODONE/APAP 5/325 1 TAB TABLET PO PRN ×5 (00:43→23:52)
[2021-10-11] MEDS: fentaNYL PF VIAL 100 MCG/2 ML VIAL IVP PRN ×2 (01:50→17:07)
[2021-10-11 03:00] VITALS: BP 128/54
[2021-10-11] MEDS: LEVOTHYROXINE 125 MCG TABLET PO SCH (06:06)
[2021-10-11 07:00] VITALS: BP 140/55
[2021-10-11] MEDS: CARBIDOPA/LEVODOPA 25/100MG TABLET PO SCH ×4 (08:18→21:06)
[2021-10-11] MEDS: rOPINIRole 0.25 MG TABLET. PO SCH ×2 (08:18→11:20)
[2021-10-11] MEDS: INSULIN LISPRO 300 UNITS/3 ML VIAL. SQ SCH ×3 (08:21→18:41)
[2021-10-11] MEDS: POLYETHYLENE GLYCOL 3350 17 GM PACKET. PO SCH (09:16)
[2021-10-11] MEDS: PIOGLITAZONE 15 MG TABLET. PO SCH (09:16)
[2021-10-11] MEDS: methylPREDNISolone 4 MG TABLET. PO SCH ×3 (09:17→21:05)
[2021-10-11] MEDS: METOPROLOL SUCC 24HR ER 25 MG TAB.ER.24H. PO SCH (09:17)
[2021-10-11] MEDS: BISACODYL 5 MG TABLET.DR. PO SCH (09:17)
[2021-10-11] MEDS: DOCUSATE SODIUM 100 MG CAPSULE. PO SCH ×2 (09:17→21:05)
[2021-10-11] MEDS: SENNOSIDES 8.6 MG TABLET PO SCH (09:17)
[2021-10-11] MEDS: CALCIUM CARB/VIT D3 500/200 TABLET. PO SCH (09:17)
[2021-10-11] MEDS: buPROPion XL 150 MG TAB.ER.24H. PO SCH (09:17)
[2021-10-11] MEDS: LOSARTAN POTASSIUM 50 MG TABLET. PO SCH (09:18)
[2021-10-11] MEDS: GABAPENTIN 300 MG CAPSULE. PO SCH ×3 (09:19→21:06)
[2021-10-11 11:00] VITALS: BP 129/58
--- NOTE | 2021-10-11 12:24 | PDOC ---
PROGRESS NOTES Date of Service DATE: 10/11/21 TIME: 12:22 Subjective Subjective She feels better. Objective Objective Vital Signs Date Time Temp Pulse Resp B/P (MAP) Pulse Ox O2 Delivery O2 Flow Rate FiO2 10/11/21 11:00 98.2 90 16 129/58 (81) 97 Room Air 98.2 10/10/21 02:02 3.0 Intake and Output 10/11/21 07:00 Intake Total 240 ml Balance 240 ml Intake Oral 240 ml # Voids 4 Physical Exam Physical Exam She is getting up and walking with roller walker to the bathroom today but still requires assistance in coming to a sitting and standing position and in donning of her lumbar corset. Plan Plan of Care To rehab unit for a short stay when medically stable. Comment Review of Relevant I have reviewed the following items ene (where applicable) has been applied. Labs Laboratory Tests Test 10/09/21 16:57 10/09/21 20:14 10/10/21 07:23 10/10/21 10:39 Glucose (Fingerstick) 362 mg/dL (70-99) 292 mg/dL (70-99) 240 mg/dL (70-99) 286 mg/dL (70-99) Test 10/10/21 16:40 10/10/21 20:22 10/11/21 07:59 10/11/21 11:01 Glucose (Fingerstick) 245 mg/dL (70-99) 328 mg/dL (70-99) 223 mg/dL (70-99) 196 mg/dL (70-99) Laboratory Tests Test 10/10/21 16:40 10/10/21 20:22 10/11/21 07:59 10/11/21 11:01 Glucose (Fingerstick) 245 mg/dL (70-99) 328 mg/dL (70-99) 223 mg/dL (70-99) 196 mg/dL (70-99) Medications Current Medications Cefazolin Sodium 1 gm/Sodium Chloride 1,000 ml @ 1,000 mls/hr 1X ONCE IRR Last administered on 09/29/21at 13:00; Start 09/29/21 at 06:00; Stop 09/29/21 at 06:59; Status DC Fentanyl Citrate (Fentanyl 2ml Vial) 25 mcg PRN Q5MIN PRN IVP MILD PAIN 1-3; Start 09/29/21 at 06:00; Stop 09/30/21 at 05:59; Status DC Fentanyl Citrate (Fentanyl 2ml Vial) 50 mcg PRN Q5MIN PRN IVP MODERATE PAIN 4- 6; Start 09/29/21 at 06:00; Stop 09/30/21 at 05:59; Status DC Morphine Sulfate (Morphine Sulfate) 1 mg PRN Q10MIN PRN IVP SEVERE PAIN 7-10; Start 09/29/21 at 06:00; Stop 09/30/21 at 05:59; Status DC Ringer's Solution 1,000 ml @ 30 mls/hr Q24H IV ; Start 09/29/21 at 06:00; Stop 09/29/21 at 17:59; Status DC Hydromorphone HCl (Dilaudid) 0.5 mg PRN Q10MIN PRN IVP SEVERE PAIN 7-10, 2nd CHOICE; Start 09/29/21 at 06:00; Stop 09/30/21 at 05:59; Status DC Prochlorperazine Edisylate (Compazine) 5 mg PACU PRN PRN IVP NAUSEA, MRX1; Start 09/29/21 at 06:00; Stop 09/30/21 at 05:59; Status DC Cefazolin Sodium/ Dextrose 50 ml @ 100 mls/hr 1X PREOP PRN IV PRIOR TO PROCEDURE; Start 09/29/21 at 06:00; Stop 09/29/21 at 18:00; Status DC Cefazolin Sodium 1 gm/Sodium Chloride 1,000 ml @ 1,000 mls/hr 1X ONCE IRR Last administered on 10/07/21at 10:25; Start 10/06/21 at 14:00; Stop 10/06/21 at 14:59; Status DC Fentanyl Citrate (Fentanyl 2ml Vial) 25 mcg PRN Q5MIN PRN IVP MILD PAIN 1-3; Start 10/07/21 at 06:00; Stop 10/07/21 at 16:43; Status DC Fentanyl Citrate (Fentanyl 2ml Vial) 50 mcg PRN Q5MIN PRN IVP MODERATE PAIN 4-6 Last administered on 10/07/21at 15:30; Start 10/07/21 at 06:00; Stop 10/07/21 at 16:43; Status DC Morphine Sulfate (Morphine Sulfate) 1 mg PRN Q10MIN PRN IVP SEVERE PAIN 7-10; Start 10/07/21 at 06:00; Stop 10/07/21 at 16:48; Status DC Ringer's Solution 1,000 ml @ 30 mls/hr Q24H IV Last administered on 10/07/21at 07:37; Start 10/07/21 at 06:00; Stop 10/07/21 at 17:59; Status DC Hydromorphone HCl (Dilaudid) 0.5 mg PRN Q10MIN PRN IVP SEVERE PAIN 7-10, 2nd CHOICE; Start 10/07/21 at 06:00; Stop 10/07/21 at 16:43; Status DC Prochlorperazine Edisylate (Compazine) 5 mg PACU PRN PRN IVP NAUSEA, MRX1 Last administered on 10/07/21at 15:34; Start 10/07/21 at 06:00; Stop 10/07/21 at 16:43; Status DC Cefazolin Sodium/ Dextrose 50 ml @ 100 mls/hr 1X PREOP PRN IV PRIOR TO PROCEDURE Last administered on 10/07/21at 09:00; Start 10/07/21 at 06:00; Stop 10/07/21 at 16:41; Status DC Gelatin (Gelfoam Size 100) 1 each STK-MED ONCE .ROUTE Last administered on 10/07/21at 10:25; Start 10/07/21 at 06:35; Stop 10/07/21 at 06:35; Status DC Bupivacaine HCl/ Epinephrine Bitart (Sensorcain-Epi 0.5% Kit) 30 ml STK-MED ONCE .ROUTE Last administered on 10/07/21at 10:25; Start 10/07/21 at 06:35; Stop 10/07/21 at 06:35; Status DC Ketorolac Tromethamine (Toradol Im) 60 mg STK-MED ONCE .ROUTE Last administered on 10/07/21at 10:25; Start 10/07/21 at 06:35; Stop 10/07/21 at 06:35; Status DC Thrombin 20,000 unit STK-MED ONCE TP Last administered on 10/07/21at 10:25; Start 10/07/21 at 06:35; Stop 10/07/21 at 06:35; Status DC Vancomycin HCl 1 gm/Sodium Chloride 250 ml @ 250 mls/hr PREOP PRN PRN IV PRIOR TO PROCEDURE Last administered on 10/07/21at 09:20; Start 10/08/21 at 06:00; Stop 10/07/21 at 16:47; Status DC Insulin Human Lispro (HumaLOG VIAL for OP,RR ONLY) 0-10 units PRN Q1HR PRN SQ PER PROTOCOL Last administered on 10/07/21at 15:07; Start 10/07/21 at 07:45; Stop 10/07/21 at 16:43; Status DC Propofol (Diprivan) 200 mg STK-MED ONCE IV ; Start 10/07/21 at 06:28; Stop 10/07/21 at 08:28; Status DC Glycopyrrolate (Robinul) 1 mg STK-MED ONCE .ROUTE ; Start 10/07/21 at 06:28; Stop 10/07/21 at 08:28; Status DC Dexamethasone Sodium Phosphate (Decadron) 4 mg STK-MED ONCE .ROUTE ; Start 10/07/21 at 06:28; Stop 10/07/21 at 08:29; Status DC Lidocaine HCl (Lidocaine Pf 2% Vial) 5 ml STK-MED ONCE .ROUTE ; Start 10/07/21 at 06:28; Stop 10/07/21 at 08:29; Status DC Ondansetron HCl (Zofran) 4 mg STK-MED ONCE .ROUTE ; Start 10/07/21 at 06:28; Stop 10/07/21 at 08:29; Status DC Phenylephrine HCl (PHENYLEPHRINE in 0.9% NACL PF) 1 mg STK-MED ONCE IV ; Start 10/07/21 at 06:28; Stop 10/07/21 at 08:29; Status DC Sugammadex Sodium (Bridion) 200 mg 1X ONCE IVP ; Start 10/07/21 at 08:45; Stop 10/07/21 at 08:46; Status DC Fentanyl Citrate (Fentanyl 2ml Vial) 100 mcg STK-MED ONCE .ROUTE ; Start 10/07/21 at 06:30; Stop 10/07/21 at 08:30; Status DC Succinylcholine Chloride (Anectine) 200 mg STK-MED ONCE .ROUTE ; Start 10/07/21 at 06:30; Stop 10/07/21 at 08:30; Status DC Rocuronium [place] (Zemuron) 50 mg STK-MED ONCE .ROUTE ; Start 10/07/21 at 06:30; Stop 10/07/21 at 08:30; Status DC Midazolam HCl (Versed) 2 mg STK-MED ONCE .ROUTE ; Start 10/07/21 at 06:30; Stop 10/07/21 at 08:31; Status DC Remifentanil HCl (Ultiva) 1 mg STK-MED ONCE IV ; Start 10/07/21 at 06:31; Stop 10/07/21 at 08:31; Status DC Sodium Chloride (SODIUM CHLORIDE 20ml) 20 ml STK-MED ONCE IJ ; Start 10/07/21 at 06:31; Stop 10/07/21 at 08:31; Status DC Propofol 50 ml @ As Directed STK-MED ONCE IV ; Start 10/07/21 at 06:50; Stop 10/07/21 at 08:50; Status DC Carbidopa/Levodopa (Sinemet 25/100) 1 tab DAILY08 PO Last administered on 10/11/21at 08:18; Start 10/08/21 at 08:00 Carbidopa/Levodopa (Sinemet 25/100) 1.5 tab TID PO Last administered on 10/11/21at 09:16; Start 10/07/21 at 14:00 Insulin Human Lispro (HumaLOG) 5-10 UNITS home slid... PRN BFRMEAL PRN SQ diabetes control; Start 10/07/21 at 11:45; Status UNV Levothyroxine Sodium (Synthroid) 125 mcg DAILY06 PO Last administered on 10/11/21at 06:06; Start 10/08/21 at 06:00 Losartan Potassium (Cozaar) 50 mg DAILY PO Last administered on 10/11/21at 09:18; Start 10/07/21 at 10:00 Metoprolol Succinate (Toprol Xl) 25 mg DAILY PO Last administered on 10/11/21at 09:17; Start 10/08/21 at 09:00 Pioglitazone HCl (Actos) 15 mg DAILY PO Last administered on 10/11/21at 09:16; Start 10/07/21 at 12:00 Polyethylene Glycol (miraLAX PACKET) 8.5 gm DAILY PO Last administered on 3/1/22at 09:16; Start 10/07/21 at 12:00 Sennosides (Senna) 8.6 mg DAILY PO Last administered on 10/11/21 09:17; Start 10/07/21 at 12:00 Non-Formulary Medication (Alendronate Sodium ) 70 mg WEEKLY PO ; Start 10/14/21 at 09:00; Status UNV Bupropion HCl (Wellbutrin Xl) 300 mg DAILY PO Last administered on 10/11/21at 09:17; Start 10/07/21 at 12:00 Calcium/Vitamin D (Oscal D 500mg/ 200uts) 1 tab DAILY PO Last administered on 10/11/21 09:17; Start 10/07/21 at 12:00 Gabapentin (Neurontin) 300 mg BIDACBL PO Last administered on 10/10/21at 12:03; Start 10/07/21 at 11:30; Stop 10/10/21 at 13:42; Status DC Gabapentin (Neurontin) 600 mg HS PO Last administered on 10/09/21at 22:01; Start 10/07/21 at 21:00; Stop 10/10/21 at 13:42; Status DC Insulin Glargine (Lantus Syringe) 15 unit QHS SQ Last administered on 10/10/21at 21:26; Start 10/07/21 at 21:00 Cetirizine HCl (ZyrTEC) 10 mg PRN DAILY PRN PO ALLERGIES; Start 10/07/21 at 11:15 Ondansetron HCl (Zofran Odt) 8 mg PRN DAILY PRN PO NAUSEA/VOMITING; Start 10/07/21 at 11:15 Ropinirole HCl (Requip) 0.5 mg BIDACBL PO Last administered on 10/11/21at 11:20; Start 10/07/21 at 11:30 Atorvastatin Calcium (Lipitor) 80 mg HS PO Last administered on 10/10/21at 21:17; Start 10/07/21 at 21:00 Non-Formulary Medication (Tegaserod Hydrogen Maleate (Zelnorm)) 6 mg BID PO ; Start 10/07/21 at 21:00; Stop 10/09/21 at 07:05; Status DC Non-Formulary Medication (Ubidecarenone (Coq10)) 200 mg DAILY PO ; Start 10/08/21 at 09:00; Status UNV Fentanyl Citrate (Fentanyl 2ml Vial) 50 mcg PRN Q2HR PRN IVP MODERATE TO SEVERE PAIN Last administered on 10/11/21at 01:50; Start 10/07/21 at 10:15 Vancomycin HCl 1 gm/Sodium Chloride 250 ml @ 250 mls/hr 1X ONCE IV Last administered on 10/07/21at 21:42; Start 10/07/21 at 21:00; Stop 10/07/21 at 21:59; Status DC Acetaminophen (Tylenol) 650 mg PRN Q6HRS PRN PO TEMP > 100.3'F; Start 10/07/21 at 10:15 Al Hydroxide/Mg Hydroxide (Mylanta Plus Xs) 30 ml PRN Q3HRS PRN PO HEARTBURN / GAS; Start 10/07/21 at 10:15 Calcium Carbonate/ Glycine (Tums) 500 mg PRN Q3HRS PRN PO INDIGESTION; Start 10/07/21 at 10:15 Diphenhydramine HCl (Benadryl) 25 mg PRN Q6HRS PRN PO ITCHING; Start 10/07/21 at 10:15 Naloxone HCl (Narcan) 0.1 mg PRN Q2MIN PRN IV SEE COMMENTS; Start 10/07/21 at 10:15 Sodium Chloride (Normal Saline Flush) 3 ml QSHIFT PRN IV AFTER MEDS AND BLOOD DRAWS; Start 10/07/21 at 10:15 Potassium Chloride/Sodium Chloride 1,000 ml @ 75 mls/hr [id number] IV Last administered on 10/07/21at 20:01; Start 10/07/21 at 10:15; Stop 10/09/21 at 06:04; Status DC Oxycodone/ Acetaminophen (Percocet 5/325) 1 tab PRN Q4HRS PRN PO MILD PAIN, 1ST CHOICE Last administered on 10/10/21at 09:26; Start 10/07/21 at 10:15 Oxycodone/ Acetaminophen (Percocet 5/325) 2 tab PRN Q4HRS PRN PO MODERATE PAIN, SEVERE PAIN Last administered on 10/11/21at 09:26; Start 10/07/21 at 10:15 Methocarbamol (Robaxin) 750 mg PRN TID PRN PO MUSCLE SPASMS Last administered on 10/10/21at 08:23; Start 10/07/21 at 10:15 Docusate Sodium (Colace) 100 mg BID PO Last administered on 10/11/21at 09:17; Start 10/07/21 at 12:00 Magnesium Hydroxide (Milk Of Magnesia) 2,400 mg PRN Q12HR PRN PO CONSTIPATION; Start 10/07/21 at 10:15; Stop 10/11/21 at 09:09; Status DC Dextrose (Dextrose 50%-Water Syringe) 12.5 gm PRN Q15MIN PRN IV SEE COMMENTS; Start 10/07/21 at 10:15 Dextrose (Iv Dextrose 5%) 250 ml PRN Q15MIN PRN IV SEE COMMENTS; Start 10/07/21 at 10:15 Ketamine HCl (Ketamine) 50 mg STK-MED ONCE .ROUTE ; Start 10/07/21 at 08:30; Stop 10/07/21 at 10:30; Status DC Lidocaine HCl (Lidocaine Pf 2% Vial) 5 ml STK-MED ONCE .ROUTE ; Start 10/07/21 at 08:31; Stop 10/07/21 at 10:32; Status DC Lidocaine HCl (Lidocaine Pf 2% Vial) 5 ml STK-MED ONCE .ROUTE ; Start 10/07/21 at 08:31; Stop 10/07/21 at 10:32; Status DC Sodium Chloride (SODIUM CHLORIDE 20ml) 20 ml STK-MED ONCE IJ ; Start 10/07/21 at 08:31; Stop 10/07/21 at 10:32; Status DC Sodium Chloride (SODIUM CHLORIDE 20ml) 20 ml STK-MED ONCE IJ ; Start 10/07/21 at 08:34; Stop 10/07/21 at 10:34; Status DC Remifentanil HCl (Ultiva) 1 mg STK-MED ONCE IV ; Start 10/07/21 at 08:48; Stop 10/07/21 at 10:48; Status DC Sodium Chloride (SODIUM CHLORIDE 20ml) 20 ml STK-MED ONCE IJ ; Start 10/07/21 at 08:48; Stop 10/07/21 at 10:49; Status DC Sevoflurane (Ultane) 90 ml STK-MED ONCE IH ; Start 10/07/21 at 09:34; Stop 10/07/21 at 11:34; Status DC Ketamine HCl (Ketamine) 50 mg STK-MED ONCE .ROUTE ; Start 10/07/21 at 10:05; St op 10/07/21 at 12:06; Status DC Lidocaine HCl (Lidocaine Pf 2% Vial) 5 ml STK-MED ONCE .ROUTE ; Start 10/07/21 at 10:06; Stop 10/07/21 at 12:06; Status DC Lidocaine HCl (Lidocaine Pf 2% Vial) 5 ml STK-MED ONCE .ROUTE ; Start 10/07/21 at 10:06; Stop 10/07/21 at 12:06; Status DC Sodium Chloride (SODIUM CHLORIDE 20ml) 20 ml STK-MED ONCE IJ ; Start 10/07/21 at 10:06; Stop 10/07/21 at 12:06; Status DC Sodium Chloride (SODIUM CHLORIDE 20ml) 20 ml STK-MED ONCE IJ ; Start 10/07/21 at 10:06; Stop 10/07/21 at 12:06; Status DC Remifentanil HCl (Ultiva) 1 mg STK-MED ONCE IV ; Start 10/07/21 at 10:42; Stop 10/07/21 at 12:42; Status DC Sodium Chloride (SODIUM CHLORIDE 20ml) 20 ml STK-MED ONCE IJ ; Start 10/07/21 at 10:42; Stop 10/07/21 at 12:42; Status DC Phenylephrine HCl ([place]-Synephrine Inj) 10 mg STK-MED ONCE .ROUTE ; Start 10/07/21 at 11:00; Stop 10/07/21 at 13:01; Status DC Cefazolin Sodium (Ancef) 1 gm STK-MED ONCE IVP ; Start 10/07/21 at 11:29; Stop 10/07/21 at 13:30; Status DC Gelatin (Gelfoam Size 100) 1 each STK-MED ONCE .ROUTE Last administered on 10/07/21at 14:14; Start 10/07/21 at 14:12; Stop 10/07/21 at 14:13; Status DC Thrombin 20,000 unit STK-MED ONCE TP Last administered on 10/07/21at 14:14; Start 10/07/21 at 14:12; Stop 10/07/21 at 14:13; Status DC Fentanyl Citrate (Fentanyl 2ml Vial) 100 mcg STK-MED ONCE .ROUTE ; Start 10/07/21 at 12:17; Stop 10/07/21 at 14:17; Status DC Fentanyl Citrate (Fentanyl 2ml Vial) 100 mcg STK-MED ONCE .ROUTE ; Start 10/07/21 at 15:20; Stop 10/07/21 at 15:20; Status DC Insulin Human Lispro (HumaLOG) 0-9 UNITS TIDWMEALS SQ Last administered on 10/11/21at 11:22; Start 10/07/21 at 17:00 Dextrose (Dextrose 50%-Water Syringe) 12.5 gm PRN Q15MIN PRN IV SEE COMMENTS; Start 10/07/21 at 16:30; Status UNV Dextrose (Iv Dextrose 5%) 250 ml PRN Q15MIN PRN IV SEE COMMENTS; Start 10/07/21 at 16:30; Status UNV Sennosides (Senna) 17.2 mg PRN BID PRN PO CONSTIPATION; Start 10/08/21 at 11:30 Methylprednisolone (Medrol) 8 mg BID PO Last administered on 10/08/21at 21:59; Start 10/08/21 at 12:00; Stop 10/08/21 at 21:01; Status DC Methylprednisolone (Medrol) 4 mg BIDPCLD PO Last administered on 10/08/21at 18:23; Start 10/08/21 at 13:30; Stop 10/08/21 at 17:31; Status DC Methylprednisolone (Medrol) 4 mg TIDPC PO Last administered on 10/09/21at 17:10; Start 10/09/21 at 08:30; Stop 10/09/21 at 17:31; Status DC Methylprednisolone (Medrol) 8 mg QHS PO Last administered on 10/09/21at 22:00; Start 10/09/21 at 21:00; Stop 10/09/21 at 21:01; Status DC Methylprednisolone (Medrol) 4 mg QIDAFTMEAL PO Last administered on 10/10/21at 21:18; Start 10/10/21 at 09:00; Stop 10/10/21 at 21:01; Status DC Methylprednisolone (Medrol) 4 mg TID PO Last administered on 10/11/21at 09:17; Start 10/11/21 at 09:00; Stop 10/11/21 at 21:01 Methylprednisolone (Medrol) 4 mg BID PO ; Start 10/12/21 at 09:00; Stop 10/12/21 at 21:01 Methylprednisolone (Medrol) 4 mg DAILY PO ; Start 10/13/21 at 09:00; Stop 10/13/21 at 09:01 Tramadol HCl (Ultram) 50 mg PRN Q6HRS PRN PO MILD PAIN 1-3 Last administered on 10/09/21at 14:49; Start 10/09/21 at 13:30 Gabapentin (Neurontin) 600 mg TID PO Last administered on 10/11/21at 09:19; Start 10/10/21 at 14:00 Bisacodyl (Dulcolax Tab) 10 mg DAILY PO Last administered on 10/11/21at 09:17; Start 10/10/21 at 15:00 Magnesium Hydroxide (Milk Of Magnesia) 2,400 mg PRN DAILY PRN PO CONSTIPATION; Start 10/10/21 at 14:45 Tramadol HCl (Ultram) 100 mg PRN Q6HRS PRN PO MODERATE PAIN, 1ST CHOICE; Start 10/11/21 at 09:15 Active Scripts Active Reported Crestor (Rosuvastatin Calcium) 5 Mg Tablet 20 Mg PO HS Losartan Potassium 50 Mg Tablet 50 Mg PO DAILY Actos (Pioglitazone Hcl) 15 Mg Tablet 15 Mg PO DAILY Tresiba (Insulin Degludec) 100 Unit/1 Ml Vial 15 Unit SQ HS Humalog (Insulin Lispro) 100 Unit/1 Ml Vial 5-10 Unit SQ PRN BFRMEAL PRN Calcium 500+D Tablet Chew (Calcium Carbonate/Vitamin D3) 1 Each Tab.chew 1 Each PO DAILY Coq10 (Ubidecarenone) 50 Mg Tab.chew 200 Mg PO DAILY Ondansetron Odt (Ondansetron) 8 Mg Tab.rapdis 8 Mg PO DAILY PRN Miralax (Polyethylene Glycol 3350) 17 Gm Powd.pack 0.5 Pkt PO DAILY Senna Laxative (Sennosides) 8.6 Mg Tablet 8.6 Mg PO DAILY Claritin (Loratadine) 10 Mg Capsule 10 Mg PO DAILY PRN Zelnorm (Tegaserod Hydrogen Maleate) 6 Mg Tablet 6 Mg PO BID Alendronate Sodium 70 Mg Tablet 70 Mg PO WEEKLY Wellbutrin Xl (Bupropion Hcl) 300 Mg Tab.er.24h 300 Mg PO DAILY Gabapentin 600 Mg Tablet 600 Mg PO HS Gabapentin 600 Mg Tablet 300 Mg PO BIDACBL Metoprolol Succinate ( Xl ) (Metoprolol Succinate) 25 Mg Tab.er.24h 25 Mg PO DAILY Ropinirole Hcl 0.5 Mg Tablet 0.5 Mg PO BIDACBL Sinemet 25-100 Mg Tablet (Carbidopa/Levodopa) 1 Each Tablet 1.5 Tab PO TID Sinemet 25-100 Mg Tablet (Carbidopa/Levodopa) 1 Each Tablet 1 Tab PO DAILY08 Levothyroxine Sodium 125 Mcg Tablet 125 Mcg PO DAILYAC Vitals/I & O Vital Sign - Last 24 Hours 10/10/21 10/10/21 10/10/21 10/10/21 13:03 13:33 15:11 15:36 Temp 98.1 98.1 Pulse 97 Resp 18 B/P (MAP) 95/43 (60) Pulse Ox 96 O2 Delivery Room Air Room Air Room Air Room Air 10/10/21 10/10/21 10/10/21 10/10/21 16:06 19:00 20:05 20:28 Temp 97.9 97.9 Pulse 90 Resp 18 20 B/P (MAP) 105/49 (67) Pulse Ox 100 O2 Delivery Room Air Room Air Room Air Room Air 10/10/21 10/10/21 10/11/21 10/11/21 20:58 23:00 00:43 01:13 Temp 98.0 98.0 Pulse 90 Resp 20 18 20 20 B/P (MAP) 114/49 (70) Pulse Ox 97 O2 Delivery Room Air Room Air Room Air Room Air 10/11/21 10/11/21 10/11/21 10/11/21 01:50 02:20 03:00 04:48 Temp 97.7 97.7 Pulse 92 Resp 20 20 18 20 B/P (MAP) 128/54 (78) Pulse Ox 99 O2 Delivery Room Air Room Air Room Air Room Air 10/11/21 10/11/21 10/11/21 10/11/21 05:18 07:00 08:00 09:17 Temp 98.4 98.4 Pulse 76 76 Resp 20 18 B/P (MAP) 140/55 (83) 140/55 Pulse Ox 97 O2 Delivery Room Air Room Air Room Air 10/11/21 10/11/21 10/11/21 10/11/21 09:18 09:26 09:56 11:00 Temp 98.2 98.2 Pulse 76 90 Resp 16 B/P (MAP) 140/55 129/58 (81) Pulse Ox 97 O2 Delivery Room Air Room Air Room Air Intake and Output 10/10/21 10/10/21 10/11/21 15:00 23:00 07:00 Intake Total 240 ml Balance 240 ml Justifications for Admission Other Justification EMELYN RODRIGUEZ MD Oct 11, 2021 12:24
[2021-10-11 15:00] VITALS: BP 118/56
--- NOTE | 2021-10-11 17:22 | PDOC ---
PROGRESS NOTES Date of Service DATE: 10/11/21 TIME: 17:20 Subjective Subjective Patient seen at 1250 POD #4 S/P laminectomy L3-4 and fusion L3-5 up in chair back pain improved today ambulated to bathroom with walker Objective Objective Vital Signs Date Time Temp Pulse Resp B/P (MAP) Pulse Ox O2 Delivery O2 Flow Rate FiO2 10/11/21 17:07 Room Air 10/11/21 15:00 98.2 85 16 118/56 (76) 98 98.2 10/10/21 02:02 3.0 Intake and Output 10/11/21 07:00 Intake Total 240 ml Balance 240 ml Intake Oral 240 ml # Voids 4 Physical Exam General: Alert, Oriented X3, Cooperative, No acute distress MUSCULOSKELETAL: Other (HERRERA) Neuro: Normal speech Skin: Other (Dressing changed, minimal blood on dressing) Plan Plan of Care encouraged increased activity as tolerated continue PT arrangements being made for rehab Comment Review of Relevant I have reviewed the following items ene (where applicable) has been applied. Labs Laboratory Tests Test 10/09/21 20:14 10/10/21 07:23 10/10/21 10:39 10/10/21 16:40 Glucose (Fingerstick) 292 mg/dL (70-99) 240 mg/dL (70-99) 286 mg/dL (70-99) 245 mg/dL (70-99) Test 10/10/21 20:22 10/11/21 07:59 10/11/21 11:01 Glucose (Fingerstick) 328 mg/dL (70-99) 223 mg/dL (70-99) 196 mg/dL (70-99) Laboratory Tests Test 10/10/21 20:22 10/11/21 07:59 10/11/21 11:01 Glucose (Fingerstick) 328 mg/dL (70-99) 223 mg/dL (70-99) 196 mg/dL (70-99) Medications Current Medications Cefazolin Sodium 1 gm/Sodium Chloride 1,000 ml @ 1,000 mls/hr 1X ONCE IRR Last administered on 09/29/21at 13:00; Start 09/29/21 at 06:00; Stop 09/29/21 at 06:59; Status DC Fentanyl Citrate (Fentanyl 2ml Vial) 25 mcg PRN Q5MIN PRN IVP MILD PAIN 1-3; Start 09/29/21 at 06:00; Stop 09/30/21 at 05:59; Status DC Fentanyl Citrate (Fentanyl 2ml Vial) 50 mcg PRN Q5MIN PRN IVP MODERATE PAIN 4- 6; Start 09/29/21 at 06:00; Stop 09/30/21 at 05:59; Status DC Morphine Sulfate (Morphine Sulfate) 1 mg PRN Q10MIN PRN IVP SEVERE PAIN 7-10; Start 09/29/21 at 06:00; Stop 09/30/21 at 05:59; Status DC Ringer's Solution 1,000 ml @ 30 mls/hr Q24H IV ; Start 09/29/21 at 06:00; Stop 09/29/21 at 17:59; Status DC Hydromorphone HCl (Dilaudid) 0.5 mg PRN Q10MIN PRN IVP SEVERE PAIN 7-10, 2nd CHOICE; Start 09/29/21 at 06:00; Stop 09/30/21 at 05:59; Status DC Prochlorperazine Edisylate (Compazine) 5 mg PACU PRN PRN IVP NAUSEA, MRX1; Start 09/29/21 at 06:00; Stop 09/30/21 at 05:59; Status DC Cefazolin Sodium/ Dextrose 50 ml @ 100 mls/hr 1X PREOP PRN IV PRIOR TO PROCEDURE; Start 09/29/21 at 06:00; Stop 09/29/21 at 18:00; Status DC Cefazolin Sodium 1 gm/Sodium Chloride 1,000 ml @ 1,000 mls/hr 1X ONCE IRR Last administered on 10/07/21at 10:25; Start 10/06/21 at 14:00; Stop 10/06/21 at 14:59; Status DC Fentanyl Citrate (Fentanyl 2ml Vial) 25 mcg PRN Q5MIN PRN IVP MILD PAIN 1-3; Start 10/07/21 at 06:00; Stop 10/07/21 at 16:43; Status DC Fentanyl Citrate (Fentanyl 2ml Vial) 50 mcg PRN Q5MIN PRN IVP MODERATE PAIN 4-6 Last administered on 10/07/21at 15:30; Start 10/07/21 at 06:00; Stop 10/07/21 at 16:43; Status DC Morphine Sulfate (Morphine Sulfate) 1 mg PRN Q10MIN PRN IVP SEVERE PAIN 7-10; Start 10/07/21 at 06:00; Stop 10/07/21 at 16:48; Status DC Ringer's Solution 1,000 ml @ 30 mls/hr Q24H IV Last administered on 10/07/21at 07:37; Start 10/07/21 at 06:00; Stop 10/07/21 at 17:59; Status DC Hydromorphone HCl (Dilaudid) 0.5 mg PRN Q10MIN PRN IVP SEVERE PAIN 7-10, 2nd CHOICE; Start 10/07/21 at 06:00; Stop 10/07/21 at 16:43; Status DC Prochlorperazine Edisylate (Compazine) 5 mg PACU PRN PRN IVP NAUSEA, MRX1 Last administered on 10/07/21at 15:34; Start 10/07/21 at 06:00; Stop 10/07/21 at 16:43; Status DC Cefazolin Sodium/ Dextrose 50 ml @ 100 mls/hr 1X PREOP PRN IV PRIOR TO PROCEDURE Last administered on 10/07/21at 09:00; Start 10/07/21 at 06:00; Stop 10/07/21 at 16:41; Status DC Gelatin (Gelfoam Size 100) 1 each STK-MED ONCE .ROUTE Last administered on 10/07/21at 10:25; Start 10/07/21 at 06:35; Stop 10/07/21 at 06:35; Status DC Bupivacaine HCl/ Epinephrine Bitart (Sensorcain-Epi 0.5% Kit) 30 ml STK-MED ONCE .ROUTE Last administered on 10/07/21at 10:25; Start 10/07/21 at 06:35; Stop 10/07/21 at 06:35; Status DC Ketorolac Tromethamine (Toradol Im) 60 mg STK-MED ONCE .ROUTE Last administered on 10/07/21at 10:25; Start 10/07/21 at 06:35; Stop 10/07/21 at 06:35; Status DC Thrombin 20,000 unit STK-MED ONCE TP Last administered on 10/07/21at 10:25; Start 10/07/21 at 06:35; Stop 10/07/21 at 06:35; Status DC Vancomycin HCl 1 gm/Sodium Chloride 250 ml @ 250 mls/hr PREOP PRN PRN IV PRIOR TO PROCEDURE Last administered on 10/07/21at 09:20; Start 10/08/21 at 06:00; Stop 10/07/21 at 16:47; Status DC Insulin Human Lispro (HumaLOG VIAL for OP,RR ONLY) 0-10 units PRN Q1HR PRN SQ PER PROTOCOL Last administered on 10/07/21at 15:07; Start 10/07/21 at 07:45; Stop 10/07/21 at 16:43; Status DC Propofol (Diprivan) 200 mg STK-MED ONCE IV ; Start 10/07/21 at 06:28; Stop 10/07/21 at 08:28; Status DC Glycopyrrolate (Robinul) 1 mg STK-MED ONCE .ROUTE ; Start 10/07/21 at 06:28; Stop 10/07/21 at 08:28; Status DC Dexamethasone Sodium Phosphate (Decadron) 4 mg STK-MED ONCE .ROUTE ; Start 10/07/21 at 06:28; Stop 10/07/21 at 08:29; Status DC Lidocaine HCl (Lidocaine Pf 2% Vial) 5 ml STK-MED ONCE .ROUTE ; Start 10/07/21 at 06:28; Stop 10/07/21 at 08:29; Status DC Ondansetron HCl (Zofran) 4 mg STK-MED ONCE .ROUTE ; Start 10/07/21 at 06:28; Stop 10/07/21 at 08:29; Status DC Phenylephrine HCl (PHENYLEPHRINE in 0.9% NACL PF) 1 mg STK-MED ONCE IV ; Start 10/07/21 at 06:28; Stop 10/07/21 at 08:29; Status DC Sugammadex Sodium (Bridion) 200 mg 1X ONCE IVP ; Start 10/07/21 at 08:45; Stop 10/07/21 at 08:46; Status DC Fentanyl Citrate (Fentanyl 2ml Vial) 100 mcg STK-MED ONCE .ROUTE ; Start 10/07/21 at 06:30; Stop 10/07/21 at 08:30; Status DC Succinylcholine Chloride (Anectine) 200 mg STK-MED ONCE .ROUTE ; Start 10/07/21 at 06:30; Stop 10/07/21 at 08:30; Status DC Rocuronium [place] (Zemuron) 50 mg STK-MED ONCE .ROUTE ; Start 10/07/21 at 06:30; Stop 10/07/21 at 08:30; Status DC Midazolam HCl (Versed) 2 mg STK-MED ONCE .ROUTE ; Start 10/07/21 at 06:30; Stop 10/07/21 at 08:31; Status DC Remifentanil HCl (Ultiva) 1 mg STK-MED ONCE IV ; Start 10/07/21 at 06:31; Stop 10/07/21 at 08:31; Status DC Sodium Chloride (SODIUM CHLORIDE 20ml) 20 ml STK-MED ONCE IJ ; Start 10/07/21 at 06:31; Stop 10/07/21 at 08:31; Status DC Propofol 50 ml @ As Directed STK-MED ONCE IV ; Start 10/07/21 at 06:50; Stop 10/07/21 at 08:50; Status DC Carbidopa/Levodopa (Sinemet 25/100) 1 tab DAILY08 PO Last administered on 10/11/21at 08:18; Start 10/08/21 at 08:00 Carbidopa/Levodopa (Sinemet 25/100) 1.5 tab TID PO Last administered on 10/11/21at 14:26; Start 10/07/21 at 14:00 Insulin Human Lispro (HumaLOG) 5-10 UNITS home slid... PRN BFRMEAL PRN SQ diabetes control; Start 10/07/21 at 11:45; Status UNV Levothyroxine Sodium (Synthroid) 125 mcg DAILY06 PO Last administered on 10/11/21at 06:06; Start 10/08/21 at 06:00 Losartan Potassium (Cozaar) 50 mg DAILY PO Last administered on 10/11/21at 09:18; Start 10/07/21 at 10:00 Metoprolol Succinate (Toprol Xl) 25 mg DAILY PO Last administered on 10/11/21at 09:17; Start 10/08/21 at 09:00 Pioglitazone HCl (Actos) 15 mg DAILY PO Last administered on 10/11/21at 09:16; Start 10/07/21 at 12:00 Polyethylene Glycol (miraLAX PACKET) 8.5 gm DAILY PO Last administered on 10/11/21at 09:16; Start 10/07/21 at 12:00 Sennosides (Senna) 8.6 mg DAILY PO Last administered on 10/11/21 09:17; Start 10/07/21 at 12:00 Non-Formulary Medication (Alendronate Sodium ) 70 mg WEEKLY PO ; Start 10/14/21 at 09:00; Status UNV Bupropion HCl (Wellbutrin Xl) 300 mg DAILY PO Last administered on 10/11/21at 09:17; Start 10/07/21 at 12:00 Calcium/Vitamin D (Oscal D 500mg/ 200uts) 1 tab DAILY PO Last administered on 10/11/21 09:17; Start 10/07/21 at 12:00 Gabapentin (Neurontin) 300 mg BIDACBL PO Last administered on 10/10/21at 12:03; Start 10/07/21 at 11:30; Stop 10/10/21 at 13:42; Status DC Gabapentin (Neurontin) 600 mg HS PO Last administered on 10/09/21at 22:01; Sta rt 10/07/21 at 21:00; Stop 10/10/21 at 13:42; Status DC Insulin Glargine (Lantus Syringe) 15 unit QHS SQ Last administered on 10/10/21at 21:26; Start 10/07/21 at 21:00 Cetirizine HCl (ZyrTEC) 10 mg PRN DAILY PRN PO ALLERGIES; Start 10/07/21 at 11:15 Ondansetron HCl (Zofran Odt) 8 mg PRN DAILY PRN PO NAUSEA/VOMITING; Start 10/07/21 at 11:15 Ropinirole HCl (Requip) 0.5 mg BIDACBL PO Last administered on 10/11/21at 11:20; Start 10/07/21 at 11:30 Atorvastatin Calcium (Lipitor) 80 mg HS PO Last administered on 10/10/21at 21:17; Start 10/07/21 at 21:00 Non-Formulary Medication (Tegaserod Hydrogen Maleate (Zelnorm)) 6 mg BID PO ; Start 10/07/21 at 21:00; Stop 10/09/21 at 07:05; Status DC Non-Formulary Medication (Ubidecarenone (Coq10)) 200 mg DAILY PO ; Start at 09:00; Status UNV Fentanyl Citrate (Fentanyl 2ml Vial) 50 mcg PRN Q2HR PRN IVP MODERATE TO SEVERE PAIN Last administered on 10/11/21at 17:07; Start 10/07/21 at 10:15 Vancomycin HCl 1 gm/Sodium Chloride 250 ml @ 250 mls/hr 1X ONCE IV Last administered on 10/07/21at 21:42; Start 10/07/21 at 21:00; Stop 10/07/21 at 21:59; Status DC Acetaminophen (Tylenol) 650 mg PRN Q6HRS PRN PO TEMP > 100.3'F; Start 10/07/21 at 10:15 Al Hydroxide/Mg Hydroxide (Mylanta Plus Xs) 30 ml PRN Q3HRS PRN PO HEARTBURN / GAS; Start 10/07/21 at 10:15 Calcium Carbonate/ Glycine (Tums) 500 mg PRN Q3HRS PRN PO INDIGESTION; Start 10/07/21 at 10:15 Diphenhydramine HCl (Benadryl) 25 mg PRN Q6HRS PRN PO ITCHING; Start 10/07/21 at 10:15 Naloxone HCl (Narcan) 0.1 mg PRN Q2MIN PRN IV SEE COMMENTS; Start 10/07/21 at 10:15 Sodium Chloride (Normal Saline Flush) 3 ml QSHIFT PRN IV AFTER MEDS AND BLOOD DRAWS; Start 10/07/21 at 10:15 Potassium Chloride/Sodium Chloride 1,000 ml @ 75 mls/hr [id number] IV Last administered on 10/07/21at 20:01; Start 10/07/21 at 10:15; Stop 10/09/21 at 06:04; Status DC Oxycodone/ Acetaminophen (Percocet 5/325) 1 tab PRN Q4HRS PRN PO MILD PAIN, 1ST CHOICE Last administered on 10/10/21at 09:26; Start 10/07/21 at 10:15 Oxycodone/ Acetaminophen (Percocet 5/325) 2 tab PRN Q4HRS PRN PO MODERATE PAIN, SEVERE PAIN Last administered on 10/11/21at 09:26; Start 10/07/21 at 10:15 Methocarbamol (Robaxin) 750 mg PRN TID PRN PO MUSCLE SPASMS Last administered on 10/10/21at 08:23; Start 10/07/21 at 10:15 Docusate Sodium (Colace) 100 mg BID PO Last administered on 10/11/21at 09:17; Start 10/07/21 at 12:00 Magnesium Hydroxide (Milk Of Magnesia) 2,400 mg PRN Q12HR PRN PO CONSTIPATION; Start 10/07/21 at 10:15; Stop 10/11/21 at 09:09; Status DC Dextrose (Dextrose 50%-Water Syringe) 12.5 gm PRN Q15MIN PRN IV SEE COMMENTS; Start 10/07/21 at 10:15 Dextrose (Iv Dextrose 5%) 250 ml PRN Q15MIN PRN IV SEE COMMENTS; Start 10/07/21 at 10:15 Ketamine HCl (Ketamine) 50 mg STK-MED ONCE .ROUTE ; Start 10/07/21 at 08:30; Stop 10/07/21 at 10:30; Status DC Lidocaine HCl (Lidocaine Pf 2% Vial) 5 ml STK-MED ONCE .ROUTE ; Start 10/07/21 at 08:31; Stop 10/07/21 at 10:32; Status DC Lidocaine HCl (Lidocaine Pf 2% Vial) 5 ml STK-MED ONCE .ROUTE ; Start 10/07/21 at 08:31; Stop 10/07/21 at 10:32; Status DC Sodium Chloride (SODIUM CHLORIDE 20ml) 20 ml STK-MED ONCE IJ ; Start 10/07/21 at 08:31; Stop 10/07/21 at 10:32; Status DC Sodium Chloride (SODIUM CHLORIDE 20ml) 20 ml STK-MED ONCE IJ ; Start 10/07/21 at 08:34; Stop 10/07/21 at 10:34; Status DC Remifentanil HCl (Ultiva) 1 mg STK-MED ONCE IV ; Start 10/07/21 at 08:48; Stop 10/07/21 at 10:48; Status DC Sodium Chloride (SODIUM CHLORIDE 20ml) 20 ml STK-MED ONCE IJ ; Start 10/07/21 at 08:48; Stop 10/07/21 at 10:49; Status DC Sevoflurane (Ultane) 90 ml STK-MED ONCE IH ; Start 10/07/21 at 09:34; Stop 10/07/21 at 11:34; Status DC Ketamine HCl (Ketamine) 50 mg STK-MED ONCE .ROUTE ; Start 10/07/21 at 10:05; Stop 10/07/21 at 12:06; Status DC Lidocaine HCl (Lidocaine Pf 2% Vial) 5 ml STK-MED ONCE .ROUTE ; Start 10/07/21 at 10:06; Stop 10/07/21 at 12:06; Status DC Lidocaine HCl (Lidocaine Pf 2% Vial) 5 ml STK-MED ONCE .ROUTE ; Start 10/07/21 at 10:06; Stop 10/07/21 at 12:06; Status DC Sodium Chloride (SODIUM CHLORIDE 20ml) 20 ml STK-MED ONCE IJ ; Start 10/07/21 at 10:06; Stop 10/07/21 at 12:06; Status DC Sodium Chloride (SODIUM CHLORIDE 20ml) 20 ml STK-MED ONCE IJ ; Start 10/07/21 at 10:06; Stop 10/07/21 at 12:06; Status DC Remifentanil HCl (Ultiva) 1 mg STK-MED ONCE IV ; Start 10/07/21 at 10:42; Stop 10/07/21 at 12:42; Status DC Sodium Chloride (SODIUM CHLORIDE 20ml) 20 ml STK-MED ONCE IJ ; Start 10/07/21 at 10:42; Stop 10/07/21 at 12:42; Status DC Phenylephrine HCl ([place]-Synephrine Inj) 10 mg STK-MED ONCE .ROUTE ; Start 10/07/21 at 11:00; Stop 10/07/21 at 13:01; Status DC Cefazolin Sodium (Ancef) 1 gm STK-MED ONCE IVP ; Start 10/07/21 at 11:29; Stop 10/07/21 at 13:30; Status DC Gelatin (Gelfoam Size 100) 1 each STK-MED ONCE .ROUTE Last administered on 10/07/21at 14:14; Start 10/07/21 at 14:12; Stop 10/07/21 at 14:13; Status DC Thrombin 20,000 unit STK-MED ONCE TP Last administered on 10/07/21at 14:14; Start 10/07/21 at 14:12; Stop 10/07/21 at 14:13; Status DC Fentanyl Citrate (Fentanyl 2ml Vial) 100 mcg STK-MED ONCE .ROUTE ; Start 10/07/21 at 12:17; Stop 10/07/21 at 14:17; Status DC Fentanyl Citrate (Fentanyl 2ml Vial) 100 mcg STK-MED ONCE .ROUTE ; Start 10/07/21 at 15:20; Stop 10/07/21 at 15:20; Status DC Insulin Human Lispro (HumaLOG) 0-9 UNITS TIDWMEALS SQ Last administered on 10/11/21at 11:22; Start 10/07/21 at 17:00 Dextrose (Dextrose 50%-Water Syringe) 12.5 gm PRN Q15MIN PRN IV SEE COMMENTS; Start 10/07/21 at 16:30; Status UNV Dextrose (Iv Dextrose 5%) 250 ml PRN Q15MIN PRN IV SEE COMMENTS; Start 10/07/21 at 16:30; Status UNV Sennosides (Senna) 17.2 mg PRN BID PRN PO CONSTIPATION; Start 10/08/21 at 11:30 Methylprednisolone (Medrol) 8 mg BID PO Last administered on 10/08/21at 21:59; Start 10/08/21 at 12:00; Stop 10/08/21 at 21:01; Status DC Methylprednisolone (Medrol) 4 mg BIDPCLD PO Last administered on 10/08/21at 18:23; Start 10/08/21 at 13:30; Stop 10/08/21 at 17:31; Status DC Methylprednisolone (Medrol) 4 mg TIDPC PO Last administered on 10/09/21at 17:10; Start 10/09/21 at 08:30; Stop 10/09/21 at 17:31; Status DC Methylprednisolone (Medrol) 8 mg QHS PO Last administered on 10/09/21at 22:00; Start 10/09/21 at 21:00; Stop 10/09/21 at 21:01; Status DC Methylprednisolone (Medrol) 4 mg QIDAFTMEAL PO Last administered on 10/10/21at 21:18; Start 10/10/21 at 09:00; Stop 10/10/21 at 21:01; Status DC Methylprednisolone (Medrol) 4 mg TID PO Last administered on 10/11/21at 14:26; Start 10/11/21 at 09:00; Stop 10/11/21 at 21:01 Methylprednisolone (Medrol) 4 mg BID PO ; Start 10/12/21 at 09:00; Stop 10/12/21 at 21:01 Methylprednisolone (Medrol) 4 mg DAILY PO ; Start 10/13/21 at 09:00; Stop 10/13/21 at 09:01 Tramadol HCl (Ultram) 50 mg PRN Q6HRS PRN PO MILD PAIN 1-3 Last administered on 10/09/21at 14:49; Start 10/09/21 at 13:30 Gabapentin (Neurontin) 600 mg TID PO Last administered on 10/11/21at 14:26; Start 10/10/21 at 14:00 Bisacodyl (Dulcolax Tab) 10 mg DAILY PO Last administered on 10/11/21at 09:17; Start 10/10/21 at 15:00 Magnesium Hydroxide (Milk Of Magnesia) 2,400 mg PRN DAILY PRN PO CONSTIPATION; Start 10/10/21 at 14:45 Tramadol HCl (Ultram) 100 mg PRN Q6HRS PRN PO MODERATE PAIN, 1ST CHOICE; Start 10/11/21 at 09:15 Active Scripts Active Reported Crestor (Rosuvastatin Calcium) 5 Mg Tablet 20 Mg PO HS Losartan Potassium 50 Mg Tablet 50 Mg PO DAILY Actos (Pioglitazone Hcl) 15 Mg Tablet 15 Mg PO DAILY Tresiba (Insulin Degludec) 100 Unit/1 Ml Vial 15 Unit SQ HS Humalog (Insulin Lispro) 100 Unit/1 Ml Vial 5-10 Unit SQ PRN BFRMEAL PRN Calcium 500+D Tablet Chew (Calcium Carbonate/Vitamin D3) 1 Each Tab.chew 1 Each PO DAILY Coq10 (Ubidecarenone) 50 Mg Tab.chew 200 Mg PO DAILY Ondansetron Odt (Ondansetron) 8 Mg Tab.rapdis 8 Mg PO DAILY PRN Miralax (Polyethylene Glycol 3350) 17 Gm Powd.pack 0.5 Pkt PO DAILY Senna Laxative (Sennosides) 8.6 Mg Tablet 8.6 Mg PO DAILY Claritin (Loratadine) 10 Mg Capsule 10 Mg PO DAILY PRN Zelnorm (Tegaserod Hydrogen Maleate) 6 Mg Tablet 6 Mg PO BID Alendronate Sodium 70 Mg Tablet 70 Mg PO WEEKLY Wellbutrin Xl (Bupropion Hcl) 300 Mg Tab.er.24h 300 Mg PO DAILY Gabapentin 600 Mg Tablet 600 Mg PO HS Gabapentin 600 Mg Tablet 300 Mg PO BIDACBL Metoprolol Succinate ( Xl ) (Metoprolol Succinate) 25 Mg Tab.er.24h 25 Mg PO DAILY Ropinirole Hcl 0.5 Mg Tablet 0.5 Mg PO BIDACBL Sinemet 25-100 Mg Tablet (Carbidopa/Levodopa) 1 Each Tablet 1.5 Tab PO TID Sinemet 25-100 Mg Tablet (Carbidopa/Levodopa) 1 Each Tablet 1 Tab PO DAILY08 Levothyroxine Sodium 125 Mcg Tablet 125 Mcg PO DAILYAC Vitals/I & O Vital Sign - Last 24 Hours 10/10/21 10/10/21 10/10/21 10/10/21 19:00 20:05 20:28 20:58 Temp 97.9 97.9 Pulse 90 Resp 18 20 20 B/P (MAP) 105/49 (67) Pulse Ox 100 O2 Delivery Room Air Room Air Room Air Room Air 10/10/21 10/11/21 10/11/21 10/11/21 23:00 00:43 01:13 01:50 Temp 98.0 98.0 Pulse 90 Resp 18 20 20 20 B/P (MAP) 114/49 (70) Pulse Ox 97 O2 Delivery Room Air Room Air Room Air Room Air 10/11/21 10/11/21 10/11/21 10/11/21 02:20 03:00 04:48 05:18 Temp 97.7 97.7 Pulse 92 Resp 20 18 20 20 B/P (MAP) 128/54 (78) Pulse Ox 99 O2 Delivery Room Air Room Air Room Air Room Air 10/11/21 10/11/21 10/11/21 10/11/21 07:00 08:00 09:17 09:18 Temp 98.4 98.4 Pulse 76 76 76 Resp 18 B/P (MAP) 140/55 (83) 140/55 140/55 Pulse Ox 97 O2 Delivery Room Air Room Air 10/11/21 10/11/21 10/11/21 10/11/21 09:26 09:56 11:00 15:00 Temp 98.2 98.2 98.2 98.2 Pulse 90 85 Resp 16 16 B/P (MAP) 129/58 (81) 118/56 (76) Pulse Ox 97 98 O2 Delivery Room Air Room Air Room Air Room Air 10/11/21 17:07 O2 Delivery Room Air Intake and Output 2/28/22 2/28/22 3/1/22 15:00 23:00 07:00 Intake Total 240 ml Balance 240 ml Justifications for Admission Other Justification BRENDA LEAHY [employer] Oct 11, 2021 17:22
[2021-10-11 19:25] VITALS: BP 120/47
[2021-10-11] MEDS: ATORVASTATIN CALCIUM 40 MG TABLET. PO SCH (21:06)
[2021-10-11] MEDS: INSULIN GLARGINE SYRINGE. SQ SCH (21:16)
[2021-10-11 22:58] VITALS: BP 118/57
[2021-10-12 03:21] VITALS: BP 110/50
[2021-10-12] MEDS: LEVOTHYROXINE 125 MCG TABLET PO SCH (05:47)
[2021-10-12] MEDS: oxyCODONE/APAP 5/325 1 TAB TABLET PO PRN ×3 (05:49→21:28)
[2021-10-12 07:00] VITALS: BP 128/61
[2021-10-12] MEDS: INSULIN LISPRO 300 UNITS/3 ML VIAL. SQ SCH ×3 (08:00→17:00)
[2021-10-12] MEDS: BISACODYL 5 MG TABLET.DR. PO SCH (08:32)
[2021-10-12] MEDS: buPROPion XL 150 MG TAB.ER.24H. PO SCH (08:32)
[2021-10-12] MEDS: GABAPENTIN 300 MG CAPSULE. PO SCH ×3 (08:32→21:27)
[2021-10-12] MEDS: CALCIUM CARB/VIT D3 500/200 TABLET. PO SCH (08:32)
[2021-10-12] MEDS: DOCUSATE SODIUM 100 MG CAPSULE. PO SCH ×2 (08:32→21:27)
[2021-10-12] MEDS: PIOGLITAZONE 15 MG TABLET. PO SCH (08:32)
[2021-10-12] MEDS: methylPREDNISolone 4 MG TABLET. PO SCH ×2 (08:32→21:27)
[2021-10-12] MEDS: POLYETHYLENE GLYCOL 3350 17 GM PACKET. PO SCH (08:33)
[2021-10-12] MEDS: rOPINIRole 0.25 MG TABLET. PO SCH ×2 (08:33→12:10)
[2021-10-12] MEDS: CARBIDOPA/LEVODOPA 25/100MG TABLET PO SCH ×4 (08:33→21:00)
[2021-10-12] MEDS: fentaNYL PF VIAL 100 MCG/2 ML VIAL IVP PRN ×3 (08:51→14:32)
[2021-10-12] MEDS: METOPROLOL SUCC 24HR ER 25 MG TAB.ER.24H. PO SCH (09:42)
[2021-10-12] MEDS: LOSARTAN POTASSIUM 50 MG TABLET. PO SCH (09:42)
[2021-10-12] MEDS: SENNOSIDES 8.6 MG TABLET PO SCH (09:42)
[2021-10-12 11:00] VITALS: BP 116/44
--- NOTE | 2021-10-12 12:08 | PDOC ---
PROGRESS NOTES Date of Service DATE: 10/12/21 TIME: 12:02 Subjective Subjective She is in tears about continued left thigh and groin area pain and numbness in her left leg. Objective Objective Vital Signs Date Time Temp Pulse Resp B/P (MAP) Pulse Ox O2 Delivery O2 Flow Rate FiO2 10/12/21 11:42 Room Air 10/12/21 11:00 98.1 77 18 116/44 (68) 94 98.1 10/10/21 02:02 3.0 Intake and Output 10/12/21 07:00 Intake Total 480 ml Balance 480 ml Intake Oral 480 ml # Voids 7 Physical Exam Physical Exam She is sitting up in bedside chair without lumbar corset and seh had pain free ROM of her lower extremity joints and she had 5/5 grad muscle strength in her lower extremities and she had tenderness to palpation over lumar spine and right hip adductor tendon attachment to pubic tubercle area and no change noted with her lower extremity sensation,may be slightly decreased sensory perception over left L5 dermatome. Assessment Assessment Tendinitis of left hip adductor tendon attachment to pubic tubercle. Plan Plan of Care Too continue present rehab efforts as tolerated and to rehab unit when when arrangements are completed. Comment Review of Relevant I have reviewed the following items ene (where applicable) has been applied. Labs Laboratory Tests Test 10/10/21 16:40 10/10/21 20:22 10/11/21 07:59 10/11/21 11:01 Glucose (Fingerstick) 245 mg/dL (70-99) 328 mg/dL (70-99) 223 mg/dL (70-99) 196 mg/dL (70-99) Test 10/11/21 18:32 10/11/21 20:42 10/12/21 07:41 10/12/21 11:41 Glucose (Fingerstick) 294 mg/dL (70-99) 231 mg/dL (70-99) 141 mg/dL (70-99) 204 mg/dL (70-99) Laboratory Tests Test 10/11/21 18:32 10/11/21 20:42 10/12/21 07:41 10/12/21 11:41 Glucose (Fingerstick) 294 mg/dL (70-99) 231 mg/dL (70-99) 141 mg/dL (70-99) 204 mg/dL (70-99) Medications Current Medications Cefazolin Sodium 1 gm/Sodium Chloride 1,000 ml @ 1,000 mls/hr 1X ONCE IRR Last administered on 09/29/21at 13:00; Start 09/29/21 at 06:00; Stop 09/29/21 at 06:59; Status DC Fentanyl Citrate (Fentanyl 2ml Vial) 25 mcg PRN Q5MIN PRN IVP MILD PAIN 1-3; Start 09/29/21 at 06:00; Stop 09/30/21 at 05:59; Status DC Fentanyl Citrate (Fentanyl 2ml Vial) 50 mcg PRN Q5MIN PRN IVP MODERATE PAIN 4- 6; Start 09/29/21 at 06:00; Stop 09/30/21 at 05:59; Status DC Morphine Sulfate (Morphine Sulfate) 1 mg PRN Q10MIN PRN IVP SEVERE PAIN 7-10; Start 09/29/21 at 06:00; Stop 09/30/21 at 05:59; Status DC Ringer's Solution 1,000 ml @ 30 mls/hr Q24H IV ; Start 09/29/21 at 06:00; Stop 09/29/21 at 17:59; Status DC Hydromorphone HCl (Dilaudid) 0.5 mg PRN Q10MIN PRN IVP SEVERE PAIN 7-10, 2nd CHOICE; Start 09/29/21 at 06:00; Stop 09/30/21 at 05:59; Status DC Prochlorperazine Edisylate (Compazine) 5 mg PACU PRN PRN IVP NAUSEA, MRX1; Start 09/29/21 at 06:00; Stop 09/30/21 at 05:59; Status DC Cefazolin Sodium/ Dextrose 50 ml @ 100 mls/hr 1X PREOP PRN IV PRIOR TO PROCEDURE; Start 09/29/21 at 06:00; Stop 09/29/21 at 18:00; Status DC Cefazolin Sodium 1 gm/Sodium Chloride 1,000 ml @ 1,000 mls/hr 1X ONCE IRR Last administered on 10/07/21at 10:25; Start 10/06/21 at 14:00; Stop 10/06/21 at 14:59; Status DC Fentanyl Citrate (Fentanyl 2ml Vial) 25 mcg PRN Q5MIN PRN IVP MILD PAIN 1-3; Start 10/07/21 at 06:00; Stop 10/07/21 at 16:43; Status DC Fentanyl Citrate (Fentanyl 2ml Vial) 50 mcg PRN Q5MIN PRN IVP MODERATE PAIN 4-6 Last administered on 10/07/21at 15:30; Start 10/07/21 at 06:00; Stop 10/07/21 at 16:43; Status DC Morphine Sulfate (Morphine Sulfate) 1 mg PRN Q10MIN PRN IVP SEVERE PAIN 7-10; Start 10/07/21 at 06:00; Stop 10/07/21 at 16:48; Status DC Ringer's Solution 1,000 ml @ 30 mls/hr Q24H IV Last administered on 10/07/21at 07:37; Start 10/07/21 at 06:00; Stop 10/07/21 at 17:59; Status DC Hydromorphone HCl (Dilaudid) 0.5 mg PRN Q10MIN PRN IVP SEVERE PAIN 7-10, 2nd CHOICE; Start 10/07/21 at 06:00; Stop 10/07/21 at 16:43; Status DC Prochlorperazine Edisylate (Compazine) 5 mg PACU PRN PRN IVP NAUSEA, MRX1 Last administered on 10/07/21at 15:34; Start 10/07/21 at 06:00; Stop 10/07/21 at 16:43; Status DC Cefazolin Sodium/ Dextrose 50 ml @ 100 mls/hr 1X PREOP PRN IV PRIOR TO PROCED URE Last administered on 10/07/21at 09:00; Start 10/07/21 at 06:00; Stop 10/07/21 at 16:41; Status DC Gelatin (Gelfoam Size 100) 1 each STK-MED ONCE .ROUTE Last administered on 10/07/21at 10:25; Start 10/07/21 at 06:35; Stop 10/07/21 at 06:35; Status DC Bupivacaine HCl/ Epinephrine Bitart (Sensorcain-Epi 0.5% Kit) 30 ml STK-MED ONCE .ROUTE Last administered on 10/07/21at 10:25; Start 10/07/21 at 06:35; Stop 10/07/21 at 06:35; Status DC Ketorolac Tromethamine (Toradol Im) 60 mg STK-MED ONCE .ROUTE Last administered on 10/07/21at 10:25; Start 10/07/21 at 06:35; Stop 10/07/21 at 06:35; Status DC Thrombin 20,000 unit STK-MED ONCE TP Last administered on 10/07/21at 10:25; Start 10/07/21 at 06:35; Stop 10/07/21 at 06:35; Status DC Vancomycin HCl 1 gm/Sodium Chloride 250 ml @ 250 mls/hr PREOP PRN PRN IV PRIOR TO PROCEDURE Last administered on 10/07/21at 09:20; Start 10/08/21 at 06:00; Stop 10/07/21 at 16:47; Status DC Insulin Human Lispro (HumaLOG VIAL for OP,RR ONLY) 0-10 units PRN Q1HR PRN SQ PER PROTOCOL Last administered on 10/07/21at 15:07; Start 10/07/21 at 07:45; Stop 10/07/21 at 16:43; Status DC Propofol (Diprivan) 200 mg STK-MED ONCE IV ; Start 10/07/21 at 06:28; Stop 10/07/21 at 08:28; Status DC Glycopyrrolate (Robinul) 1 mg STK-MED ONCE .ROUTE ; Start 10/07/21 at 06:28; Stop 10/07/21 at 08:28; Status DC Dexamethasone Sodium Phosphate (Decadron) 4 mg STK-MED ONCE .ROUTE ; Start 10/07/21 at 06:28; Stop 10/07/21 at 08:29; Status DC Lidocaine HCl (Lidocaine Pf 2% Vial) 5 ml STK-MED ONCE .ROUTE ; Start 10/07/21 at 06:28; Stop 10/07/21 at 08:29; Status DC Ondansetron HCl (Zofran) 4 mg STK-MED ONCE .ROUTE ; Start 10/07/21 at 06:28; Stop 10/07/21 at 08:29; Status DC Phenylephrine HCl (PHENYLEPHRINE in 0.9% NACL PF) 1 mg STK-MED ONCE IV ; Start 10/07/21 at 06:28; Stop 10/07/21 at 08:29; Status DC Sugammadex Sodium (Bridion) 200 mg 1X ONCE IVP ; Start 10/07/21 at 08:45; Stop 10/07/21 at 08:46; Status DC Fentanyl Citrate (Fentanyl 2ml Vial) 100 mcg STK-MED ONCE .ROUTE ; Start 10/07/21 at 06:30; Stop 10/07/21 at 08:30; Status DC Succinylcholine Chloride (Anectine) 200 mg STK-MED ONCE .ROUTE ; Start 10/07/21 at 06:30; Stop 10/07/21 at 08:30; Status DC Rocuronium Wayne (Zemuron) 50 mg STK-MED ONCE .ROUTE ; Start 10/07/21 at 06:30; Stop 10/07/21 at 08:30; Status DC Midazolam HCl (Versed) 2 mg STK-MED ONCE .ROUTE ; Start 10/07/21 at 06:30; Stop 10/07/21 at 08:31; Status DC Remifentanil HCl (Ultiva) 1 mg STK-MED ONCE IV ; Start 10/07/21 at 06:31; Stop 10/07/21 at 08:31; Status DC Sodium Chloride (SODIUM CHLORIDE 20ml) 20 ml STK-MED ONCE IJ ; Start 10/07/21 at 06:31; Stop 10/07/21 at 08:31; Status DC Propofol 50 ml @ As Directed STK-MED ONCE IV ; Start 10/07/21 at 06:50; Stop 10/07/21 at 08:50; Status DC Carbidopa/Levodopa (Sinemet 25/100) 1 tab DAILY08 PO Last administered on 10/12/21at 08:33; Start 10/08/21 at 08:00 Carbidopa/Levodopa (Sinemet 25/100) 1.5 tab TID PO Last administered on 10/12/21at 09:41; Start 10/07/21 at 14:00 Insulin Human Lispro (HumaLOG) 5-10 UNITS home slid... PRN BFRMEAL PRN SQ diab etes control; Start 10/07/21 at 11:45; Status UNV Levothyroxine Sodium (Synthroid) 125 mcg DAILY06 PO Last administered on 10/12at 05:47; Start 10/08/21 at 06:00 Losartan Potassium (Cozaar) 50 mg DAILY PO Last administered on 10/12/21at 09:42; Start 10/07/21 at 10:00 Metoprolol Succinate (Toprol Xl) 25 mg DAILY PO Last administered on 10/12/21 09:42; Start 10/08/21 at 09:00 Pioglitazone HCl (Actos) 15 mg DAILY PO Last administered on 10/12/21 08:32; Start 10/07/21 at 12:00 Polyethylene Glycol (miraLAX PACKET) 8.5 gm DAILY PO Last administered on 10/12/21 08:33; Start 10/07/21 at 12:00 Sennosides (Senna) 8.6 mg DAILY PO Last administered on 10/12/21 09:42; Start 10/07/21 at 12:00 Non-Formulary Medication (Alendronate Sodium ) 70 mg WEEKLY PO ; Start 10/14/21 at 09:00; Status UNV Bupropion HCl (Wellbutrin Xl) 300 mg DAILY PO Last administered on 10/12/21 08:32; Start 10/07/21 at 12:00 Calcium/Vitamin D (Oscal D 500mg/ 200uts) 1 tab DAILY PO Last administered on 10/12/21 08:32; Start 10/07/21 at 12:00 Gabapentin (Neurontin) 300 mg BIDACBL PO Last administered on 10/10/21 12:03; Start 10/07/21 at 11:30; Stop 10/10/21 at 13:42; Status DC Gabapentin (Neurontin) 600 mg HS PO Last administered on 10/09/21 22:01; Start 10/07/21 at 21:00; Stop 10/10/21 at 13:42; Status DC Insulin Glargine (Lantus Syringe) 15 unit QHS SQ Last administered on 10/11/21 21:16; Start 10/07/21 at 21:00 Cetirizine HCl (ZyrTEC) 10 mg PRN DAILY PRN PO ALLERGIES; Start 10/07/21 at 11:15 Ondansetron HCl (Zofran Odt) 8 mg PRN DAILY PRN PO NAUSEA/VOMITING Last administered on 10/12/21 10:04; Start 10/07/21 at 11:15 Ropinirole HCl (Requip) 0.5 mg BIDACBL PO Last administered on 10/12/21 08:33; Start 10/07/21 at 11:30 Atorvastatin Calcium (Lipitor) 80 mg HS PO Last administered on 10/11/21at 21:06; Start 10/07/21 at 21:00 Non-Formulary Medication (Tegaserod Hydrogen Maleate (Zelnorm)) 6 mg BID PO ; Start 10/07/21 at 21:00; Stop 10/09/21 at 07:05; Status DC Non-Formulary Medication (Ubidecarenone (Coq10)) 200 mg DAILY PO ; Start 10/08/21 at 09:00; Status UNV Fentanyl Citrate (Fentanyl 2ml Vial) 50 mcg PRN Q2HR PRN IVP MODERATE TO SEVERE PAIN Last administered on 10/12/21at 11:42; Start 10/07/21 at 10:15 Vancomycin HCl 1 gm/Sodium Chloride 250 ml @ 250 mls/hr 1X ONCE IV Last administered on 10/07/21at 21:42; Start 10/07/21 at 21:00; Stop 10/07/21 at 21:59; Status DC Acetaminophen (Tylenol) 650 mg PRN Q6HRS PRN PO TEMP > 100.3'F; Start 10/07/21 at 10:15 Al Hydroxide/Mg Hydroxide (Mylanta Plus Xs) 30 ml PRN Q3HRS PRN PO HEARTBURN / GAS; Start 10/07/21 at 10:15 Calcium Carbonate/ Glycine (Tums) 500 mg PRN Q3HRS PRN PO INDIGESTION; Start 10/07/21 at 10:15 Diphenhydramine HCl (Benadryl) 25 mg PRN Q6HRS PRN PO ITCHING; Start 10/07/21 at 10:15 Naloxone HCl (Narcan) 0.1 mg PRN Q2MIN PRN IV SEE COMMENTS; Start 10/07/21 at 10:15 Sodium Chloride (Normal Saline Flush) 3 ml QSHIFT PRN IV AFTER MEDS AND BLOOD DRAWS; Start 10/07/21 at 10:15 Potassium Chloride/Sodium Chloride 1,000 ml @ 75 mls/hr [id number] IV Last administered on 10/07/21at 20:01; Start 10/07/21 at 10:15; Stop 10/09/21 at 06:04; Status DC Oxycodone/ Acetaminophen (Percocet 5/325) 1 tab PRN Q4HRS PRN PO MILD PAIN, 1ST CHOICE Last administered on 10/10/21at 09:26; Start 10/07/21 at 10:15 Oxycodone/ Acetaminophen (Percocet 5/325) 2 tab PRN Q4HRS PRN PO MODERATE PAIN, SEVERE PAIN Last administered on 10/12/21at 05:49; Start 10/07/21 at 10:15 Methocarbamol (Robaxin) 750 mg PRN TID PRN PO MUSCLE SPASMS Last administered on 10/10/21at 08:23; Start 10/07/21 at 10:15 Docusate Sodium (Colace) 100 mg BID PO Last administered on 10/12/21at 08:32; Start 10/07/21 at 12:00 Magnesium Hydroxide (Milk Of Magnesia) 2,400 mg PRN Q12HR PRN PO CONSTIPATION; Start 10/07/21 at 10:15; Stop 10/11/21 at 09:09; Status DC Dextrose (Dextrose 50%-Water Syringe) 12.5 gm PRN Q15MIN PRN IV SEE COMMENTS; Start 10/07/21 at 10:15 Dextrose (Iv Dextrose 5%) 250 ml PRN Q15MIN PRN IV SEE COMMENTS; Start 10/07/21 at 10:15 Ketamine HCl (Ketamine) 50 mg STK-MED ONCE .ROUTE ; Start 10/07/21 at 08:30; Stop 10/07/21 at 10:30; Status DC Lidocaine HCl (Lidocaine Pf 2% Vial) 5 ml STK-MED ONCE .ROUTE ; Start 10/07/21 at 08:31; Stop 10/07/21 at 10:32; Status DC Lidocaine HCl (Lidocaine Pf 2% Vial) 5 ml STK-MED ONCE .ROUTE ; Start 10/07/21 at 08:31; Stop 10/07/21 at 10:32; Status DC Sodium Chloride (SODIUM CHLORIDE 20ml) 20 ml STK-MED ONCE IJ ; Start 10/07/21 at 08:31; Stop 10/07/21 at 10:32; Status DC Sodium Chloride (SODIUM CHLORIDE 20ml) 20 ml STK-MED ONCE IJ ; Start 10/07/21 at 08:34; Stop 10/07/21 at 10:34; Status DC Remifentanil HCl (Ultiva) 1 mg STK-MED ONCE IV ; Start 10/07/21 at 08:48; Stop 10/07/21 at 10:48; Status DC Sodium Chloride (SODIUM CHLORIDE 20ml) 20 ml STK-MED ONCE IJ ; Start 10/07/21 at 08:48; Stop 10/07/21 at 10:49; Status DC Sevoflurane (Ultane) 90 ml STK-MED ONCE IH ; Start 10/07/21 at 09:34; Stop 10/07/21 at 11:34; Status DC Ketamine HCl (Ketamine) 50 mg STK-MED ONCE .ROUTE ; Start 10/07/21 at 10:05; Stop 10/07/21 at 12:06; Status DC Lidocaine HCl (Lidocaine Pf 2% Vial) 5 ml STK-MED ONCE .ROUTE ; Start 10/07/21 at 10:06; Stop 10/07/21 at 12:06; Status DC Lidocaine HCl (Lidocaine Pf 2% Vial) 5 ml STK-MED ONCE .ROUTE ; Start 10/07/21 at 10:06; Stop 10/07/21 at 12:06; Status DC Sodium Chloride (SODIUM CHLORIDE 20ml) 20 ml STK-MED ONCE IJ ; Start 10/07/21 at 10:06; Stop 10/07/21 at 12:06; Status DC Sodium Chloride (SODIUM CHLORIDE 20ml) 20 ml STK-MED ONCE IJ ; Start 10/07/21 at 10:06; Stop 10/07/21 at 12:06; Status DC Remifentanil HCl (Ultiva) 1 mg STK-MED ONCE IV ; Start 10/07/21 at 10:42; Stop 10/07/21 at 12:42; Status DC Sodium Chloride (SODIUM CHLORIDE 20ml) 20 ml STK-MED ONCE IJ ; Start 10/07/21 at 10:42; Stop 10/07/21 at 12:42; Status DC Phenylephrine HCl (Franklin-Synephrine Inj) 10 mg STK-MED ONCE .ROUTE ; Start 10/07/21 at 11:00; Stop 10/07/21 at 13:01; Status DC Cefazolin Sodium (Ancef) 1 gm STK-MED ONCE IVP ; Start 10/07/21 at 11:29; Stop 10/07/21 at 13:30; Status DC Gelatin (Gelfoam Size 100) 1 each STK-MED ONCE .ROUTE Last administered on 10/07/21at 14:14; Start 10/07/21 at 14:12; Stop 10/07/21 at 14:13; Status DC Thrombin 20,000 unit STK-MED ONCE TP Last administered on 10/07/21at 14:14; Start 10/07/21 at 14:12; Stop 10/07/21 at 14:13; Status DC Fentanyl Citrate (Fentanyl 2ml Vial) 100 mcg STK-MED ONCE .ROUTE ; Start 10/07/21 at 12:17; Stop 10/07/21 at 14:17; Status DC Fentanyl Citrate (Fentanyl 2ml Vial) 100 mcg STK-MED ONCE .ROUTE ; Start 10/07/21 at 15:20; Stop 10/07/21 at 15:20; Status DC Insulin Human Lispro (HumaLOG) 0-9 UNITS TIDWMEALS SQ Last administered on 10/11/21at 18:41; Start 10/07/21 at 17:00 Dextrose (Dextrose 50%-Water Syringe) 12.5 gm PRN Q15MIN PRN IV SEE COMMENTS; Start 10/07/21 at 16:30; Status UNV Dextrose (Iv Dextrose 5%) 250 ml PRN Q15MIN PRN IV SEE COMMENTS; Start 10/07/21 at 16:30; Status UNV Sennosides (Senna) 17.2 mg PRN BID PRN PO CONSTIPATION; Start 10/08/21 at 11:30 Methylprednisolone (Medrol) 8 mg BID PO Last administered on 10/08/21at 21:59; Start 10/08/21 at 12:00; Stop 10/08/21 at 21:01; Status DC Methylprednisolone (Medrol) 4 mg BIDPCLD PO Last administered on 10/08/21at 18:23; Start 10/08/21 at 13:30; Stop 10/08/21 at 17:31; Status DC Methylprednisolone (Medrol) 4 mg TIDPC PO Last administered on 10/09/21at 17:10; Start 10/09/21 at 08:30; Stop 10/09/21 at 17:31; Status DC Methylprednisolone (Medrol) 8 mg QHS PO Last administered on 10/09/21at 22:00; Start 10/09/21 at 21:00; Stop 10/09/21 at 21:01; Status DC Methylprednisolone (Medrol) 4 mg QIDAFTMEAL PO Last administered on 10/10/21at 21:18; Start 10/10/21 at 09:00; Stop 10/10/21 at 21:01; Status DC Methylprednisolone (Medrol) 4 mg TID PO Last administered on 10/11/21at 21:05; Start 10/11/21 at 09:00; Stop 10/11/21 at 21:01; Status DC Methylprednisolone (Medrol) 4 mg BID PO Last administered on 10/12/21at 08:32; Start 10/12/21 at 09:00; Stop 10/12/21 at 21:01 Methylprednisolone (Medrol) 4 mg DAILY PO ; Start 10/13/21 at 09:00; Stop 10/13/21 at 09:01 Tramadol HCl (Ultram) 50 mg PRN Q6HRS PRN PO MILD PAIN 1-3 Last administered on 10/09/21at 14:49; Start 10/09/21 at 13:30 Gabapentin (Neurontin) 600 mg TID PO Last administered on 10/12/21at 08:32; Start 10/10/21 at 14:00 Bisacodyl (Dulcolax Tab) 10 mg DAILY PO Last administered on 10/12/21at 08:32; Start 10/10/21 at 15:00 Magnesium Hydroxide (Milk Of Magnesia) 2,400 mg PRN DAILY PRN PO CONSTIPATION; Start 10/10/21 at 14:45 Tramadol HCl (Ultram) 100 mg PRN Q6HRS PRN PO MODERATE PAIN, 1ST CHOICE; Start 10/11/21 at 09:15 Active Scripts Active Reported Crestor (Rosuvastatin Calcium) 5 Mg Tablet 20 Mg PO HS Losartan Potassium 50 Mg Tablet 50 Mg PO DAILY Actos (Pioglitazone Hcl) 15 Mg Tablet 15 Mg PO DAILY Tresiba (Insulin Degludec) 100 Unit/1 Ml Vial 15 Unit SQ HS Humalog (Insulin Lispro) 100 Unit/1 Ml Vial 5-10 Unit SQ PRN BFRMEAL PRN Calcium 500+D Tablet Chew (Calcium Carbonate/Vitamin D3) 1 Each Tab.chew 1 Each PO DAILY Coq10 (Ubidecarenone) 50 Mg Tab.chew 200 Mg PO DAILY Ondansetron Odt (Ondansetron) 8 Mg Tab.rapdis 8 Mg PO DAILY PRN Miralax (Polyethylene Glycol 3350) 17 Gm Powd.pack 0.5 Pkt PO DAILY Senna Laxative (Sennosides) 8.6 Mg Tablet 8.6 Mg PO DAILY Claritin (Loratadine) 10 Mg Capsule 10 Mg PO DAILY PRN Zelnorm (Tegaserod Hydrogen Maleate) 6 Mg Tablet 6 Mg PO BID Alendronate Sodium 70 Mg Tablet 70 Mg PO WEEKLY Wellbutrin Xl (Bupropion Hcl) 300 Mg Tab.er.24h 300 Mg PO DAILY Gabapentin 600 Mg Tablet 600 Mg PO HS Gabapentin 600 Mg Tablet 300 Mg PO BIDACBL Metoprolol Succinate ( Xl ) (Metoprolol Succinate) 25 Mg Tab.er.24h 25 Mg PO DAILY Ropinirole Hcl 0.5 Mg Tablet 0.5 Mg PO BIDACBL Sinemet 25-100 Mg Tablet (Carbidopa/Levodopa) 1 Each Tablet 1.5 Tab PO TID Sinemet 25-100 Mg Tablet (Carbidopa/Levodopa) 1 Each Tablet 1 Tab PO DAILY08 Levothyroxine Sodium 125 Mcg Tablet 125 Mcg PO DAILYAC Vitals/I & O Vital Sign - Last 24 Hours 10/11/21 10/11/21 10/11/21 10/11/21 15:00 17:07 19:25 19:50 Temp 98.2 97.8 98.2 97.8 Pulse 85 77 Resp 16 18 20 B/P (MAP) 118/56 (76) 120/47 (71) Pulse Ox 98 98 O2 Delivery Room Air Room Air Room Air Room Air 10/11/21 10/11/21 10/11/21 10/11/21 19:50 20:20 22:58 23:52 Temp 98.1 98.1 Pulse 77 Resp 20 18 20 B/P (MAP) 118/57 (77) Pulse Ox 97 O2 Delivery Room Air Room Air Room Air Room Air 10/12/21 10/12/21 10/12/21 10/12/21 00:22 03:21 05:49 06:19 Temp 98.2 98.2 Pulse 73 Resp 20 18 20 20 B/P (MAP) 110/50 (70) Pulse Ox 98 O2 Delivery Room Air Room Air Nasal Cannula Room Air 10/12/21 10/12/21 10/12/21 10/12/21 07:00 08:51 09:42 09:42 Temp 98.2 98.2 Pulse 74 74 74 Resp 18 B/P (MAP) 128/61 (83) 128/61 128/61 Pulse Ox 96 O2 Delivery Room Air Room Air 10/12/21 10/12/21 10/12/21 09:44 11:00 11:42 Temp 98.1 98.1 Pulse 77 Resp 18 B/P (MAP) 116/44 (68) Pulse Ox 94 O2 Delivery Room Air Room Air Room Air Intake and Output 10/11/21 10/11/21 10/12/21 15:00 23:00 07:00 Intake Total 240 ml 240 ml Balance 240 ml 240 ml Justifications for Admission Other Justification EMELYN RODRIGUEZ MD Oct 12, 2021 12:07
[2021-10-12 15:00] VITALS: BP 93/46
[2021-10-12] MEDS: ONDANSETRON PF 4 MG/2 ML VIAL. IVP PRN ×2 (15:11→19:48)
--- NOTE | 2021-10-12 17:05 | PDOC ---
PROGRESS NOTES Date of Service DATE: 10/12/21 TIME: 17:02 Subjective Subjective POD #5 S/P laminectomy L3-4 and fusion L3-5 up in chair C/O nausea, vomiting. she reports this was a problem pre op c/o left hip, groin and lateral lower leg pain with standing and walking Objective Objective Vital Signs Date Time Temp Pulse Resp B/P (MAP) Pulse Ox O2 Delivery O2 Flow Rate FiO2 10/12/21 15:00 97.8 72 18 93/46 (62) 98 Room Air 97.8 10/10/21 02:02 3.0 Intake and Output 10/12/21 07:00 Intake Total 480 ml Balance 480 ml Intake Oral 480 ml # Voids 7 Physical Exam General: Alert, Oriented X3, Cooperative MUSCULOSKELETAL: Other (HERRERA) Neuro: Normal speech Skin: Other (dressing intact) Plan Plan of Care will obtain lumbar CT possible transfer to rehab tomorrow Comment Review of Relevant I have reviewed the following items ene (where applicable) has been applied. Labs Laboratory Tests Test 10/10/21 20:22 10/11/21 07:59 10/11/21 11:01 10/11/21 18:32 Glucose (Fingerstick) 328 mg/dL (70-99) 223 mg/dL (70-99) 196 mg/dL (70-99) 294 mg/dL (70-99) Test 10/11/21 18:42 10/11/21 20:42 10/12/21 07:41 10/12/21 11:41 Coronavirus (COVID-19)(PCR) Not detected (NOT DETECTD) Glucose (Fingerstick) 231 mg/dL (70-99) 141 mg/dL (70-99) 204 mg/dL (70-99) Test 10/12/21 16:47 Glucose (Fingerstick) 134 mg/dL (70-99) Laboratory Tests Test 10/11/21 18:32 10/11/21 18:42 10/11/21 20:42 10/12/21 07:41 Glucose (Fingerstick) 294 mg/dL (70-99) 231 mg/dL (70-99) 141 mg/dL (70-99) Coronavirus (COVID-19)(PCR) Not detected (NOT DETECTD) Test 10/12/21 11:41 10/12/21 16:47 Glucose (Fingerstick) 204 mg/dL (70-99) 134 mg/dL (70-99) Medications Current Medications Cefazolin Sodium 1 gm/Sodium Chloride 1,000 ml @ 1,000 mls/hr 1X ONCE IRR Last administered on 09/29/21at 13:00; Start 09/29/21 at 06:00; Stop 09/29/21 at 06:59; Status DC Fentanyl Citrate (Fentanyl 2ml Vial) 25 mcg PRN Q5MIN PRN IVP MILD PAIN 1-3; Start 09/29/21 at 06:00; Stop 09/30/21 at 05:59; Status DC Fentanyl Citrate (Fentanyl 2ml Vial) 50 mcg PRN Q5MIN PRN IVP MODERATE PAIN 4- 6; Start 09/29/21 at 06:00; Stop 09/30/21 at 05:59; Status DC Morphine Sulfate (Morphine Sulfate) 1 mg PRN Q10MIN PRN IVP SEVERE PAIN 7-10; Start 09/29/21 at 06:00; Stop 09/30/21 at 05:59; Status DC Ringer's Solution 1,000 ml @ 30 mls/hr Q24H IV ; Start 09/29/21 at 06:00; Stop 09/29/21 at 17:59; Status DC Hydromorphone HCl (Dilaudid) 0.5 mg PRN Q10MIN PRN IVP SEVERE PAIN 7-10, 2nd CHOICE; Start 09/29/21 at 06:00; Stop 09/30/21 at 05:59; Status DC Prochlorperazine Edisylate (Compazine) 5 mg PACU PRN PRN IVP NAUSEA, MRX1; Start 09/29/21 at 06:00; Stop 09/30/21 at 05:59; Status DC Cefazolin Sodium/ Dextrose 50 ml @ 100 mls/hr 1X PREOP PRN IV PRIOR TO PROCEDURE; Start 09/29/21 at 06:00; Stop 09/29/21 at 18:00; Status DC Cefazolin Sodium 1 gm/Sodium Chloride 1,000 ml @ 1,000 mls/hr 1X ONCE IRR Last administered on 10/07/21at 10:25; Start 10/06/21 at 14:00; Stop 10/06/21 at 14:59; Status DC Fentanyl Citrate (Fentanyl 2ml Vial) 25 mcg PRN Q5MIN PRN IVP MILD PAIN 1-3; Start 10/07/21 at 06:00; Stop 10/07/21 at 16:43; Status DC Fentanyl Citrate (Fentanyl 2ml Vial) 50 mcg PRN Q5MIN PRN IVP MODERATE PAIN 4-6 Last administered on 10/07/21at 15:30; Start 10/07/21 at 06:00; Stop 10/07/21 at 16:43; Status DC Morphine Sulfate (Morphine Sulfate) 1 mg PRN Q10MIN PRN IVP SEVERE PAIN 7-10; Start 10/07/21 at 06:00; Stop 10/07/21 at 16:48; Status DC Ringer's Solution 1,000 ml @ 30 mls/hr Q24H IV Last administered on 10/07/21at 07:37; Start 10/07/21 at 06:00; Stop 10/07/21 at 17:59; Status DC Hydromorphone HCl (Dilaudid) 0.5 mg PRN Q10MIN PRN IVP SEVERE PAIN 7-10, 2nd CH OICE; Start 10/07/21 at 06:00; Stop 10/07/21 at 16:43; Status DC Prochlorperazine Edisylate (Compazine) 5 mg PACU PRN PRN IVP NAUSEA, MRX1 Last administered on 10/07/21at 15:34; Start 10/07/21 at 06:00; Stop 10/07/21 at 16:43; Status DC Cefazolin Sodium/ Dextrose 50 ml @ 100 mls/hr 1X PREOP PRN IV PRIOR TO PROCEDURE Last administered on 10/07/21at 09:00; Start 10/07/21 at 06:00; Stop 10/07/21 at 16:41; Status DC Gelatin (Gelfoam Size 100) 1 each STK-MED ONCE .ROUTE Last administered on 10/07/21at 10:25; Start 10/07/21 at 06:35; Stop 10/07/21 at 06:35; Status DC Bupivacaine HCl/ Epinephrine Bitart (Sensorcain-Epi 0.5% Kit) 30 ml STK-MED ONCE .ROUTE Last administered on 10/07/21at 10:25; Start 10/07/21 at 06:35; Stop 10/07/21 at 06:35; Status DC Ketorolac Tromethamine (Toradol Im) 60 mg STK-MED ONCE .ROUTE Last administered on 10/07/21at 10:25; Start 10/07/21 at 06:35; Stop 10/07/21 at 06:35; Status DC Thrombin 20,000 unit STK-MED ONCE TP Last administered on 10/07/21at 10:25; Start 10/07/21 at 06:35; Stop 10/07/21 at 06:35; Status DC Vancomycin HCl 1 gm/Sodium Chloride 250 ml @ 250 mls/hr PREOP PRN PRN IV PRIOR TO PROCEDURE Last administered on 10/07/21at 09:20; Start 10/08/21 at 06:00; Stop 10/07/21 at 16:47; Status DC Insulin Human Lispro (HumaLOG VIAL for OP,RR ONLY) 0-10 units PRN Q1HR PRN SQ PER PROTOCOL Last administered on 10/07/21at 15:07; Start 10/07/21 at 07:45; St op 10/07/21 at 16:43; Status DC Propofol (Diprivan) 200 mg STK-MED ONCE IV ; Start 10/07/21 at 06:28; Stop 10/07/21 at 08:28; Status DC Glycopyrrolate (Robinul) 1 mg STK-MED ONCE .ROUTE ; Start 10/07/21 at 06:28; Stop 10/07/21 at 08:28; Status DC Dexamethasone Sodium Phosphate (Decadron) 4 mg STK-MED ONCE .ROUTE ; Start 10/07/21 at 06:28; Stop 10/07/21 at 08:29; Status DC Lidocaine HCl (Lidocaine Pf 2% Vial) 5 ml STK-MED ONCE .ROUTE ; Start 10/07/21 at 06:28; Stop 10/07/21 at 08:29; Status DC Ondansetron HCl (Zofran) 4 mg STK-MED ONCE .ROUTE ; Start 10/07/21 at 06:28; Stop 10/07/21 at 08:29; Status DC Phenylephrine HCl (PHENYLEPHRINE in 0.9% NACL PF) 1 mg STK-MED ONCE IV ; Start 10/07/21 at 06:28; Stop 10/07/21 at 08:29; Status DC Sugammadex Sodium (Bridion) 200 mg 1X ONCE IVP ; Start 10/07/21 at 08:45; Stop 10/07/21 at 08:46; Status DC Fentanyl Citrate (Fentanyl 2ml Vial) 100 mcg STK-MED ONCE .ROUTE ; Start 10/07/21 at 06:30; Stop 10/07/21 at 08:30; Status DC Succinylcholine Chloride (Anectine) 200 mg STK-MED ONCE .ROUTE ; Start 10/07/21 at 06:30; Stop 10/07/21 at 08:30; Status DC Rocuronium Strang (Zemuron) 50 mg STK-MED ONCE .ROUTE ; Start 10/07/21 at 06:30; Stop 10/07/21 at 08:30; Status DC Midazolam HCl (Versed) 2 mg STK-MED ONCE .ROUTE ; Start 10/07/21 at 06:30; Stop 10/07/21 at 08:31; Status DC Remifentanil HCl (Ultiva) 1 mg STK-MED ONCE IV ; Start 10/07/21 at 06:31; Stop 10/07/21 at 08:31; Status DC Sodium Chloride (SODIUM CHLORIDE 20ml) 20 ml STK-MED ONCE IJ ; Start 10/07/21 at 06:31; Stop 10/07/21 at 08:31; Status DC Propofol 50 ml @ As Directed STK-MED ONCE IV ; Start 10/07/21 at 06:50; Stop 10/07/21 at 08:50; Status DC Carbidopa/Levodopa (Sinemet 25/100) 1 tab DAILY08 PO Last administered on 10/12/21at 08:33; Start 10/08/21 at 08:00 Carbidopa/Levodopa (Sinemet 25/100) 1.5 tab TID PO Last administered on 10/12/21at 13:01; Start 10/07/21 at 14:00 Insulin Human Lispro (HumaLOG) 5-10 UNITS home slid... PRN BFRMEAL PRN SQ diabetes control; Start 10/07/21 at 11:45; Status UNV Levothyroxine Sodium (Synthroid) 125 mcg DAILY06 PO Last administered on 10/12/21at 05:47; Start 10/08/21 at 06:00 Losartan Potassium (Cozaar) 50 mg DAILY PO Last administered on 10/12/21 09:42; Start 10/07/21 at 10:00 Metoprolol Succinate (Toprol Xl) 25 mg DAILY PO Last administered on 10/12/21 09:42; Start 10/08/21 at 09:00 Pioglitazone HCl (Actos) 15 mg DAILY PO Last administered on 10/12/21 08:32; Start 10/07/21 at 12:00 Polyethylene Glycol (miraLAX PACKET) 8.5 gm DAILY PO Last administered on 10/12/21 08:33; Start 10/07/21 at 12:00 Sennosides (Senna) 8.6 mg DAILY PO Last administered on 10/12/21 09:42; Start 10/07/21 at 12:00 Non-Formulary Medication (Alendronate Sodium ) 70 mg WEEKLY PO ; Start 10/14/21 at 09:00; Status UNV Bupropion HCl (Wellbutrin Xl) 300 mg DAILY PO Last administered on 10/12/21 08:32; Start 10/07/21 at 12:00 Calcium/Vitamin D (Oscal D 500mg/ 200uts) 1 tab DAILY PO Last administered on 10/12/21 08:32; Start 10/07/21 at 12:00 Gabapentin (Neurontin) 300 mg BIDACBL PO Last administered on 10/10/21 12:03; Start 10/07/21 at 11:30; Stop 10/10/21 at 13:42; Status DC Gabapentin (Neurontin) 600 mg HS PO Last administered on 10/09/21at 22:01; Start 10/07/21 at 21:00; Stop 10/10/21 at 13:42; Status DC Insulin Glargine (Lantus Syringe) 15 unit QHS SQ Last administered on 10/11/21at 21:16; Start 10/07/21 at 21:00 Cetirizine HCl (ZyrTEC) 10 mg PRN DAILY PRN PO ALLERGIES; Start 10/07/21 at 11:15 Ondansetron HCl (Zofran Odt) 8 mg PRN DAILY PRN PO NAUSEA/VOMITING Last administered on 10/12/21 10:04; Start 10/07/21 at 11:15; Stop 10/12/21 at 15:03; Status DC Ropinirole HCl (Requip) 0.5 mg BIDACBL PO Last administered on 10/12/21at 12:10; Start 10/07/21 at 11:30 Atorvastatin Calcium (Lipitor) 80 mg HS PO Last administered on 10/11/21at 21:06; Start 10/07/21 at 21:00 Non-Formulary Medication (Tegaserod Hydrogen Maleate (Zelnorm)) 6 mg BID PO ; Start 10/07/21 at 21:00; Stop 10/09/21 at 07:05; Status DC Non-Formulary Medication (Ubidecarenone (Coq10)) 200 mg DAILY PO ; Start 10/08/21 at 09:00; Status UNV Fentanyl Citrate (Fentanyl 2ml Vial) 50 mcg PRN Q2HR PRN IVP MODERATE TO SEVERE PAIN Last administered on 10/12/21at 14:32; Start 10/07/21 at 10:15 Vancomycin HCl 1 gm/Sodium Chloride 250 ml @ 250 mls/hr 1X ONCE IV Last administered on 10/07/21at 21:42; Start 10/07/21 at 21:00; Stop 10/07/21 at 21:59; Status DC Acetaminophen (Tylenol) 650 mg PRN Q6HRS PRN PO TEMP > 100.3'F; Start 10/07/21 at 10:15 Al Hydroxide/Mg Hydroxide (Mylanta Plus Xs) 30 ml PRN Q3HRS PRN PO HEARTBURN / GAS; Start 10/07/21 at 10:15 Calcium Carbonate/ Glycine (Tums) 500 mg PRN Q3HRS PRN PO INDIGESTION; Start 10/07/21 at 10:15 Diphenhydramine HCl (Benadryl) 25 mg PRN Q6HRS PRN PO ITCHING; Start 10/07/21 at 10:15 Naloxone HCl (Narcan) 0.1 mg PRN Q2MIN PRN IV SEE COMMENTS; Start 10/07/21 at 10:15 Sodium Chloride (Normal Saline Flush) 3 ml QSHIFT PRN IV AFTER MEDS AND BLOOD DRAWS; Start 10/07/21 at 10:15 Potassium Chloride/Sodium Chloride 1,000 ml @ 75 mls/hr [id number] IV Last administered on 10/07/21at 20:01; Start 10/07/21 at 10:15; Stop 10/09/21 at 06:04; Status DC Oxycodone/ Acetaminophen (Percocet 5/325) 1 tab PRN Q4HRS PRN PO MILD PAIN, 1ST CHOICE Last administered on 10/10/21at 09:26; Start 10/07/21 at 10:15 Oxycodone/ Acetaminophen (Percocet 5/325) 2 tab PRN Q4HRS PRN PO MODERATE PAIN, SEVERE PAIN Last administered on 10/12/21at 13:06; Start 10/07/21 at 10:15 Methocarbamol (Robaxin) 750 mg PRN TID PRN PO MUSCLE SPASMS Last administered on 10/10/21at 08:23; Start 10/07/21 at 10:15 Docusate Sodium (Colace) 100 mg BID PO Last administered on 10/12/21at 08:32; Start 10/07/21 at 12:00 Magnesium Hydroxide (Milk Of Magnesia) 2,400 mg PRN Q12HR PRN PO CONSTIPATION; Start 10/07/21 at 10:15; Stop 10/11/21 at 09:09; Status DC Dextrose (Dextrose 50%-Water Syringe) 12.5 gm PRN Q15MIN PRN IV SEE COMMENTS; Start 10/07/21 at 10:15 Dextrose (Iv Dextrose 5%) 250 ml PRN Q15MIN PRN IV SEE COMMENTS; Start 10/07/21 at 10:15 Ketamine HCl (Ketamine) 50 mg STK-MED ONCE .ROUTE ; Start 10/07/21 at 08:30; Stop 10/07/21 at 10:30; Status DC Lidocaine HCl (Lidocaine Pf 2% Vial) 5 ml STK-MED ONCE .ROUTE ; Start 10/07/21 at 08:31; Stop 10/07/21 at 10:32; Status DC Lidocaine HCl (Lidocaine Pf 2% Vial) 5 ml STK-MED ONCE .ROUTE ; Start 10/07/21 at 08:31; Stop 10/07/21 at 10:32; Status DC Sodium Chloride (SODIUM CHLORIDE 20ml) 20 ml STK-MED ONCE IJ ; Start 10/07/21 at 08:31; Stop 10/07/21 at 10:32; Status DC Sodium Chloride (SODIUM CHLORIDE 20ml) 20 ml STK-MED ONCE IJ ; Start 10/07/21 at 08:34; Stop 10/07/21 at 10:34; Status DC Remifentanil HCl (Ultiva) 1 mg STK-MED ONCE IV ; Start 10/07/21 at 08:48; Stop 10/07/21 at 10:48; Status DC Sodium Chloride (SODIUM CHLORIDE 20ml) 20 ml STK-MED ONCE IJ ; Start 10/07/21 at 08:48; Stop 10/07/21 at 10:49; Status DC Sevoflurane (Ultane) 90 ml STK-MED ONCE IH ; Start 10/07/21 at 09:34; Stop 10/07/21 at 11:34; Status DC Ketamine HCl (Ketamine) 50 mg STK-MED ONCE .ROUTE ; Start 10/07/21 at 10:05; Stop 10/07/21 at 12:06; Status DC Lidocaine HCl (Lidocaine Pf 2% Vial) 5 ml STK-MED ONCE .ROUTE ; Start 10/07/21 at 10:06; Stop 10/07/21 at 12:06; Status DC Lidocaine HCl (Lidocaine Pf 2% Vial) 5 ml STK-MED ONCE .ROUTE ; Start 10/07/21 at 10:06; Stop 10/07/21 at 12:06; Status DC Sodium Chloride (SODIUM CHLORIDE 20ml) 20 ml STK-MED ONCE IJ ; Start 10/07/21 at 10:06; Stop 10/07/21 at 12:06; Status DC Sodium Chloride (SODIUM CHLORIDE 20ml) 20 ml STK-MED ONCE IJ ; Start 10/07/21 at 10:06; Stop 10/07/21 at 12:06; Status DC Remifentanil HCl (Ultiva) 1 mg STK-MED ONCE IV ; Start 10/07/21 at 10:42; Stop 10/07/21 at 12:42; Status DC Sodium Chloride (SODIUM CHLORIDE 20ml) 20 ml STK-MED ONCE IJ ; Start 10/07/21 at 10:42; Stop 10/07/21 at 12:42; Status DC Phenylephrine HCl (Franklin-Synephrine Inj) 10 mg STK-MED ONCE .ROUTE ; Start 10/07/21 at 11:00; Stop 10/07/21 at 13:01; Status DC Cefazolin Sodium (Ancef) 1 gm STK-MED ONCE IVP ; Start 10/07/21 at 11:29; Stop 10/07/21 at 13:30; Status DC Gelatin (Gelfoam Size 100) 1 each STK-MED ONCE .ROUTE Last administered on 10/07/21at 14:14; Start 10/07/21 at 14:12; Stop 10/07/21 at 14:13; Status DC Thrombin 20,000 unit STK-MED ONCE TP Last administered on 10/07/21at 14:14; Start 10/07/21 at 14:12; Stop 10/07/21 at 14:13; Status DC Fentanyl Citrate (Fentanyl 2ml Vial) 100 mcg STK-MED ONCE .ROUTE ; Start 10/07/21 at 12:17; Stop 10/07/21 at 14:17; Status DC Fentanyl Citrate (Fentanyl 2ml Vial) 100 mcg STK-MED ONCE .ROUTE ; Start 10/07/21 at 15:20; Stop 10/07/21 at 15:20; Status DC Insulin Human Lispro (HumaLOG) 0-9 UNITS TIDWMEALS SQ Last administered on 10/12/21at 12:16; Start 10/07/21 at 17:00 Dextrose (Dextrose 50%-Water Syringe) 12.5 gm PRN Q15MIN PRN IV SEE COMMENTS; Start 10/07/21 at 16:30; Status UNV Dextrose (Iv Dextrose 5%) 250 ml PRN Q15MIN PRN IV SEE COMMENTS; Start 10/07/21 at 16:30; Status UNV Sennosides (Senna) 17.2 mg PRN BID PRN PO CONSTIPATION; Start 10/08/21 at 11:30 Methylprednisolone (Medrol) 8 mg BID PO Last administered on 10/08/21at 21:59; Start 10/08/21 at 12:00; Stop 10/08/21 at 21:01; Status DC Methylprednisolone (Medrol) 4 mg BIDPCLD PO Last administered on 10/08/21at 18:23; Start 10/08/21 at 13:30; Stop 10/08/21 at 17:31; Status DC Methylprednisolone (Medrol) 4 mg TIDPC PO Last administered on 10/09/21at 17:10; Start 10/09/21 at 08:30; Stop 10/09/21 at 17:31; Status DC Methylprednisolone (Medrol) 8 mg QHS PO Last administered on 10/09/21at 22:00; Start 10/09/21 at 21:00; Stop 10/09/21 at 21:01; Status DC Methylprednisolone (Medrol) 4 mg QIDAFTMEAL PO Last administered on 10/10/21at 21:18; Start 10/10/21 at 09:00; Stop 10/10/21 at 21:01; Status DC Methylprednisolone (Medrol) 4 mg TID PO Last administered on 10/11/21at 21:05; Start 10/11/21 at 09:00; Stop 10/11/21 at 21:01; Status DC Methylprednisolone (Medrol) 4 mg BID PO Last administered on 10/12/21at 08:32; Start 10/12/21 at 09:00; Stop 10/12/21 at 21:01 Methylprednisolone (Medrol) 4 mg DAILY PO ; Start 10/13/21 at 09:00; Stop 10/13/21 at 09:01 Tramadol HCl (Ultram) 50 mg PRN Q6HRS PRN PO MILD PAIN 1-3 Last administered on 10/09/21at 14:49; Start 10/09/21 at 13:30 Gabapentin (Neurontin) 600 mg TID PO Last administered on 10/12/21at 13:00; Start 10/10/21 at 14:00 Bisacodyl (Dulcolax Tab) 10 mg DAILY PO Last administered on 10/12/21at 08:32; Start 10/10/21 at 15:00 Magnesium Hydroxide (Milk Of Magnesia) 2,400 mg PRN DAILY PRN PO CONSTIPATION; Start 10/10/21 at 14:45 Tramadol HCl (Ultram) 100 mg PRN Q6HRS PRN PO MODERATE PAIN, 1ST CHOICE; Start 10/11/21 at 09:15 Ondansetron HCl (Zofran) 4 mg PRN Q4HRS PRN IVP NAUSEA/VOMITING Last administered on 10/12/21at 15:11; Start 10/12/21 at 15:15 Active Scripts Active Reported Crestor (Rosuvastatin Calcium) 5 Mg Tablet 20 Mg PO HS Losartan Potassium 50 Mg Tablet 50 Mg PO DAILY Actos (Pioglitazone Hcl) 15 Mg Tablet 15 Mg PO DAILY Tresiba (Insulin Degludec) 100 Unit/1 Ml Vial 15 Unit SQ HS Humalog (Insulin Lispro) 100 Unit/1 Ml Vial 5-10 Unit SQ PRN BFRMEAL PRN Calcium 500+D Tablet Chew (Calcium Carbonate/Vitamin D3) 1 Each Tab.chew 1 Each PO DAILY Coq10 (Ubidecarenone) 50 Mg Tab.chew 200 Mg PO DAILY Ondansetron Odt (Ondansetron) 8 Mg Tab.rapdis 8 Mg PO DAILY PRN Miralax (Polyethylene Glycol 3350) 17 Gm Powd.pack 0.5 Pkt PO DAILY Senna Laxative (Sennosides) 8.6 Mg Tablet 8.6 Mg PO DAILY Claritin (Loratadine) 10 Mg Capsule 10 Mg PO DAILY PRN Zelnorm (Tegaserod Hydrogen Maleate) 6 Mg Tablet 6 Mg PO BID Alendronate Sodium 70 Mg Tablet 70 Mg PO WEEKLY Wellbutrin Xl (Bupropion Hcl) 300 Mg Tab.er.24h 300 Mg PO DAILY Gabapentin 600 Mg Tablet 600 Mg PO HS Gabapentin 600 Mg Tablet 300 Mg PO BIDACBL Metoprolol Succinate ( Xl ) (Metoprolol Succinate) 25 Mg Tab.er.24h 25 Mg PO DAILY Ropinirole Hcl 0.5 Mg Tablet 0.5 Mg PO BIDACBL Sinemet 25-100 Mg Tablet (Carbidopa/Levodopa) 1 Each Tablet 1.5 Tab PO TID Sinemet 25-100 Mg Tablet (Carbidopa/Levodopa) 1 Each Tablet 1 Tab PO DAILY08 Levothyroxine Sodium 125 Mcg Tablet 125 Mcg PO DAILYAC Vitals/I & O Vital Sign - Last 24 Hours 10/11/21 10/11/21 10/11/21 10/11/21 17:07 19:25 19:50 19:50 Temp 97.8 97.8 Pulse 77 Resp 18 20 B/P (MAP) 120/47 (71) Pulse Ox 98 O2 Delivery Room Air Room Air Room Air Room Air 10/11/21 10/11/21 10/11/21 10/12/21 20:20 22:58 23:52 00:22 Temp 98.1 98.1 Pulse 77 Resp 20 18 20 20 B/P (MAP) 118/57 (77) Pulse Ox 97 O2 Delivery Room Air Room Air Room Air Room Air 10/12/21 10/12/21 10/12/21 10/12/21 03:21 05:49 06:19 07:00 Temp 98.2 98.2 98.2 98.2 Pulse 73 74 Resp 18 20 20 18 B/P (MAP) 110/50 (70) 128/61 (83) Pulse Ox 98 96 O2 Delivery Room Air Nasal Cannula Room Air Room Air 10/12/21 10/12/21 10/12/21 10/12/21 08:00 08:51 09:42 09:42 Pulse 74 74 B/P (MAP) 128/61 128/61 O2 Delivery Room Air Room Air 10/12/21 10/12/21 10/12/21 10/12/21 09:44 11:00 11:42 12:12 Temp 98.1 98.1 Pulse 77 Resp 18 B/P (MAP) 116/44 (68) Pulse Ox 94 O2 Delivery Room Air Room Air Room Air Room Air 10/12/21 10/12/21 10/12/21 10/12/21 13:06 13:36 14:32 15:00 Temp 97.8 97.8 Pulse 72 Resp 18 B/P (MAP) 93/46 (62) Pulse Ox 98 O2 Delivery Room Air Room Air Room Air Room Air Intake and Output 10/11/21 10/11/21 10/12/21 15:00 23:00 07:00 Intake Total 240 ml 240 ml Balance 240 ml 240 ml Justifications for Admission Other Justification 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
[2021-10-12] MEDS: POTASSIUM CL 20MEQ-0.45% NACL 1,000 ML IV SCH (18:24)
[2021-10-12 19:00] VITALS: BP 125/52
[2021-10-12] MEDS: INSULIN GLARGINE SYRINGE. SQ SCH (21:00)
[2021-10-12] MEDS: ATORVASTATIN CALCIUM 40 MG TABLET. PO SCH (21:00)
--- NOTE | 2021-10-12 21:15 | NUR ---
Patient refused scheduled Lantus, Carbidopa/Levodopa, and Lipitor doses this HS.
[2021-10-12 23:00] VITALS: BP 132/45
[2021-10-13] MEDS: fentaNYL PF VIAL 100 MCG/2 ML VIAL IVP PRN ×2 (02:23→08:45)
--- NOTE | 2021-10-13 02:29 | NUR ---
Patient c/o pain after ambulating to [facility]; pt offered available PO pain medication and refused. Per patient request, PRN Fentanyl administered and patient able to ambulate back to chair with x2 staff assist. Patient educated on pain management. Ice applied to site and patient resting in chair with call light within reach.
[2021-10-13 03:00] VITALS: BP 120/57
[2021-10-13] MEDS: POTASSIUM CL 20MEQ-0.45% NACL 1,000 ML IV SCH ×2 (06:05→16:07)
[2021-10-13] MEDS: LEVOTHYROXINE 125 MCG TABLET PO SCH (06:05)
[2021-10-13] MEDS: ONDANSETRON PF 4 MG/2 ML VIAL. IVP PRN (06:08)
[2021-10-13] MEDS: rOPINIRole 0.25 MG TABLET. PO SCH ×2 (06:08→11:30)
[2021-10-13 07:00] VITALS: BP 133/57
[2021-10-13] MEDS: INSULIN LISPRO 300 UNITS/3 ML VIAL. SQ SCH ×3 (08:00→17:00)
[2021-10-13] MEDS: CARBIDOPA/LEVODOPA 25/100MG TABLET PO SCH ×4 (08:00→20:25)
[2021-10-13] MEDS: SENNOSIDES 8.6 MG TABLET PO SCH (09:00)
[2021-10-13] MEDS: PIOGLITAZONE 15 MG TABLET. PO SCH (09:00)
[2021-10-13] MEDS: CALCIUM CARB/VIT D3 500/200 TABLET. PO SCH (09:00)
[2021-10-13] MEDS: POLYETHYLENE GLYCOL 3350 17 GM PACKET. PO SCH (09:00)
[2021-10-13] MEDS: BISACODYL 5 MG TABLET.DR. PO SCH (09:00)
[2021-10-13] MEDS: DOCUSATE SODIUM 100 MG CAPSULE. PO SCH ×2 (09:00→21:00)
[2021-10-13] MEDS: buPROPion XL 150 MG TAB.ER.24H. PO SCH (09:00)
[2021-10-13] MEDS: LOSARTAN POTASSIUM 50 MG TABLET. PO SCH (09:00)
[2021-10-13] MEDS: METOPROLOL SUCC 24HR ER 25 MG TAB.ER.24H. PO SCH (09:00)
[2021-10-13] MEDS ORDERED: methylPREDNISolone 4 MG TABLET. PO SCH (09:00)
--- NOTE | 2021-10-13 09:45 | PDOC ---
PROGRESS NOTES Date of Service DATE: 10/13/21 TIME: 09:43 Subjective Subjective No new complaints. Objective Objective Vital Signs Date Time Temp Pulse Resp B/P (MAP) Pulse Ox O2 Delivery O2 Flow Rate FiO2 10/13/21 08:45 Room Air 10/13/21 07:00 98.4 83 18 133/57 (82) 97 98.4 10/10/21 02:02 3.0 Intake and Output 10/13/21 07:00 Intake Total 1025 ml Balance 1025 ml Intake Oral 650 ml IV Total 375 ml # Voids 4 # Bowel Movements 1 Physical Exam Physical Exam She is alert,supine in bed and no change with her neurological status and she continues with painfully limited lumbar spine ROM. Plan Plan of Care Waiting for CT scan report,to continue present rehab efforts as tolerated. Comment Review of Relevant I have reviewed the following items ene (where applicable) has been applied. Labs Laboratory Tests Test 10/11/21 11:01 10/11/21 18:32 10/11/21 18:42 10/11/21 20:42 Glucose (Fingerstick) 196 mg/dL (70-99) 294 mg/dL (70-99) 231 mg/dL (70-99) Coronavirus (COVID-19)(PCR) Not detected (NOT DETECTD) Test 10/12/21 07:41 10/12/21 11:41 10/12/21 16:47 10/12/21 20:51 Glucose (Fingerstick) 141 mg/dL (70-99) 204 mg/dL (70-99) 134 mg/dL (70-99) 131 mg/dL (70-99) Test 10/13/21 08:14 Glucose (Fingerstick) 161 mg/dL (70-99) Laboratory Tests Test 10/12/21 11:41 10/12/21 16:47 10/12/21 20:51 10/13/21 08:14 Glucose (Fingerstick) 204 mg/dL (70-99) 134 mg/dL (70-99) 131 mg/dL (70-99) 161 mg/dL (70-99) Medications Current Medications Cefazolin Sodium 1 gm/Sodium Chloride 1,000 ml @ 1,000 mls/hr 1X ONCE IRR Last administered on 09/29/21at 13:00; Start 09/29/21 at 06:00; Stop 09/29/21 at 06:59; Status DC Fentanyl Citrate (Fentanyl 2ml Vial) 25 mcg PRN Q5MIN PRN IVP MILD PAIN 1-3; Start 09/29/21 at 06:00; Stop 09/30/21 at 05:59; Status DC Fentanyl Citrate (Fentanyl 2ml Vial) 50 mcg PRN Q5MIN PRN IVP MODERATE PAIN 4- 6; Start 09/29/21 at 06:00; Stop 09/30/21 at 05:59; Status DC Morphine Sulfate (Morphine Sulfate) 1 mg PRN Q10MIN PRN IVP SEVERE PAIN 7-10; Start 09/29/21 at 06:00; Stop 09/30/21 at 05:59; Status DC Ringer's Solution 1,000 ml @ 30 mls/hr Q24H IV ; Start 09/29/21 at 06:00; Stop 09/29/21 at 17:59; Status DC Hydromorphone HCl (Dilaudid) 0.5 mg PRN Q10MIN PRN IVP SEVERE PAIN 7-10, 2nd CHOICE; Start 09/29/21 at 06:00; Stop 09/30/21 at 05:59; Status DC Prochlorperazine Edisylate (Compazine) 5 mg PACU PRN PRN IVP NAUSEA, MRX1; Start 09/29/21 at 06:00; Stop 09/30/21 at 05:59; Status DC Cefazolin Sodium/ Dextrose 50 ml @ 100 mls/hr 1X PREOP PRN IV PRIOR TO PROCEDURE; Start 09/29/21 at 06:00; Stop 09/29/21 at 18:00; Status DC Cefazolin Sodium 1 gm/Sodium Chloride 1,000 ml @ 1,000 mls/hr 1X ONCE IRR Last administered on 10/07/21at 10:25; Start 10/06/21 at 14:00; Stop 10/06/21 at 14:59; Status DC Fentanyl Citrate (Fentanyl 2ml Vial) 25 mcg PRN Q5MIN PRN IVP MILD PAIN 1-3; Start 10/07/21 at 06:00; Stop 10/07/21 at 16:43; Status DC Fentanyl Citrate (Fentanyl 2ml Vial) 50 mcg PRN Q5MIN PRN IVP MODERATE PAIN 4-6 Last administered on 10/07/21at 15:30; Start 10/07/21 at 06:00; Stop 10/07/21 at 16:43; Status DC Morphine Sulfate (Morphine Sulfate) 1 mg PRN Q10MIN PRN IVP SEVERE PAIN 7-10; Start 10/07/21 at 06:00; Stop 10/07/21 at 16:48; Status DC Ringer's Solution 1,000 ml @ 30 mls/hr Q24H IV Last administered on 10/07/21at 07:37; Start 10/07/21 at 06:00; Stop 10/07/21 at 17:59; Status DC Hydromorphone HCl (Dilaudid) 0.5 mg PRN Q10MIN PRN IVP SEVERE PAIN 7-10, 2nd CHOICE; Start 10/07/21 at 06:00; Stop 10/07/21 at 16:43; Status DC Prochlorperazine Edisylate (Compazine) 5 mg PACU PRN PRN IVP NAUSEA, MRX1 Last administered on 10/07/21at 15:34; Start 10/07/21 at 06:00; Stop 10/07/21 at 16:43; Status DC Cefazolin Sodium/ Dextrose 50 ml @ 100 mls/hr 1X PREOP PRN IV PRIOR TO PROCEDURE Last administered on 10/07/21at 09:00; Start 10/07/21 at 06:00; Stop 10/07/21 at 16:41; Status DC Gelatin (Gelfoam Size 100) 1 each STK-MED ONCE .ROUTE Last administered on 10/07/21 10:25; Start 10/07/21 at 06:35; Stop 10/07/21 at 06:35; Status DC Bupivacaine HCl/ Epinephrine Bitart (Sensorcain-Epi 0.5% Kit) 30 ml STK-MED ONCE .ROUTE Last administered on 10/07/21at 10:25; Start 10/07/21 at 06:35; Stop 10/07/21 at 06:35; Status DC Ketorolac Tromethamine (Toradol Im) 60 mg STK-MED ONCE .ROUTE Last administered on 10/07/21at 10:25; Start 10/07/21 at 06:35; Stop 10/07/21 at 06:35; Status DC Thrombin 20,000 unit STK-MED ONCE TP Last administered on 10/07/21at 10:25; Start 10/07/21 at 06:35; Stop 10/07/21 at 06:35; Status DC Vancomycin HCl 1 gm/Sodium Chloride 250 ml @ 250 mls/hr PREOP PRN PRN IV PRIOR TO PROCEDURE Last administered on 10/07/21at 09:20; Start 10/08/21 at 06:00; Stop 10/07/21 at 16:47; Status DC Insulin Human Lispro (HumaLOG VIAL for OP,RR ONLY) 0-10 units PRN Q1HR PRN SQ PER PROTOCOL Last administered on 10/07/21at 15:07; Start 10/07/21 at 07:45; Stop 10/07/21 at 16:43; Status DC Propofol (Diprivan) 200 mg STK-MED ONCE IV ; Start 10/07/21 at 06:28; Stop 10/07/21 at 08:28; Status DC Glycopyrrolate (Robinul) 1 mg STK-MED ONCE .ROUTE ; Start 10/07/21 at 06:28; Stop 10/07/21 at 08:28; Status DC Dexamethasone Sodium Phosphate (Decadron) 4 mg STK-MED ONCE .ROUTE ; Start 10/07/21 at 06:28; Stop 10/07/21 at 08:29; Status DC Lidocaine HCl (Lidocaine Pf 2% Vial) 5 ml STK-MED ONCE .ROUTE ; Start 10/07/21 at 06:28; Stop 10/07/21 at 08:29; Status DC Ondansetron HCl (Zofran) 4 mg STK-MED ONCE .ROUTE ; Start 10/07/21 at 06:28; Stop 10/07/21 at 08:29; Status DC Phenylephrine HCl (PHENYLEPHRINE in 0.9% NACL PF) 1 mg STK-MED ONCE IV ; Start 10/07/21 at 06:28; Stop 10/07/21 at 08:29; Status DC Sugammadex Sodium (Bridion) 200 mg 1X ONCE IVP ; Start 10/07/21 at 08:45; Stop 10/07/21 at 08:46; Status DC Fentanyl Citrate (Fentanyl 2ml Vial) 100 mcg STK-MED ONCE .ROUTE ; Start 10/07/21 at 06:30; Stop 10/07/21 at 08:30; Status DC Succinylcholine Chloride (Anectine) 200 mg STK-MED ONCE .ROUTE ; Start 10/07/21 at 06:30; Stop 10/07/21 at 08:30; Status DC Rocuronium [place] (Zemuron) 50 mg STK-MED ONCE .ROUTE ; Start 10/07/21 at 06:30; Stop 10/07/21 at 08:30; Status DC Midazolam HCl (Versed) 2 mg STK-MED ONCE .ROUTE ; Start 10/07/21 at 06:30; Stop 10/07/21 at 08:31; Status DC Remifentanil HCl (Ultiva) 1 mg STK-MED ONCE IV ; Start 10/07/21 at 06:31; Stop 10/07/21 at 08:31; Status DC Sodium Chloride (SODIUM CHLORIDE 20ml) 20 ml STK-MED ONCE IJ ; Start 10/07/21 at 06:31; Stop 10/07/21 at 08:31; Status DC Propofol 50 ml @ As Directed STK-MED ONCE IV ; Start 10/07/21 at 06:50; Stop 10/07/21 at 08:50; Status DC Carbidopa/Levodopa (Sinemet 25/100) 1 tab DAILY08 PO Last administered on 10/12/21at 08:33; Start 10/08/21 at 08:00 Carbidopa/Levodopa (Sinemet 25/100) 1.5 tab TID PO Last administered on 10/12/21at 13:01; Start 10/07/21 at 14:00 Insulin Human Lispro (HumaLOG) 5-10 UNITS home slid... PRN BFRMEAL PRN SQ diabetes control; Start 10/07/21 at 11:45; Status UNV Levothyroxine Sodium (Synthroid) 125 mcg DAILY06 PO Last administered on 10/13/21at 06:05; Start 10/08/21 at 06:00 Losartan Potassium (Cozaar) 50 mg DAILY PO Last administered on 10/12/21at 09:42; Start 10/07/21 at 10:00 Metoprolol Succinate (Toprol Xl) 25 mg DAILY PO Last administered on 10/12/21at 0 9:42; Start 10/08/21 at 09:00 Pioglitazone HCl (Actos) 15 mg DAILY PO Last administered on 10/12/21 08:32; Start 10/07/21 at 12:00 Polyethylene Glycol (miraLAX PACKET) 8.5 gm DAILY PO Last administered on 10/12/21 08:33; Start 10/07/21 at 12:00 Sennosides (Senna) 8.6 mg DAILY PO Last administered on 10/12/21 09:42; Start 10/07/21 at 12:00 Non-Formulary Medication (Alendronate Sodium ) 70 mg WEEKLY PO ; Start 10/14/21 at 09:00; Status UNV Bupropion HCl (Wellbutrin Xl) 300 mg DAILY PO Last administered on 10/12/21 08:32; Start 10/07/21 at 12:00 Calcium/Vitamin D (Oscal D 500mg/ 200uts) 1 tab DAILY PO Last administered on 10/12/21 08:32; Start 10/07/21 at 12:00 Gabapentin (Neurontin) 300 mg BIDACBL PO Last administered on 10/10/21 12:03; Start 10/07/21 at 11:30; Stop 10/10/21 at 13:42; Status DC Gabapentin (Neurontin) 600 mg HS PO Last administered on 10/09/21 22:01; Start 10/07/21 at 21:00; Stop 10/10/21 at 13:42; Status DC Insulin Glargine (Lantus Syringe) 15 unit QHS SQ Last administered on 10/11/21 21:16; Start 10/07/21 at 21:00 Cetirizine HCl (ZyrTEC) 10 mg PRN DAILY PRN PO ALLERGIES; Start 10/07/21 at 11:15 Ondansetron HCl (Zofran Odt) 8 mg PRN DAILY PRN PO NAUSEA/VOMITING Last administered on 10/12/21 10:04; Start 10/07/21 at 11:15; Stop 10/12/21 at 15:03; Status DC Ropinirole HCl (Requip) 0.5 mg BIDACBL PO Last administered on 10/13/21 06:08; Start 10/07/21 at 11:30 Atorvastatin Calcium (Lipitor) 80 mg HS PO Last administered on 10/11/21 21:06; Start 10/07/21 at 21:00 Non-Formulary Medication (Tegaserod Hydrogen Maleate (Zelnorm)) 6 mg BID PO ; Start 10/07/21 at 21:00; Stop 10/09/21 at 07:05; Status DC Non-Formulary Medication (Ubidecarenone (Coq10)) 200 mg DAILY PO ; Start 10/08/21 at 09:00; Status UNV Fentanyl Citrate (Fentanyl 2ml Vial) 50 mcg PRN Q2HR PRN IVP MODERATE TO SEVERE PAIN Last administered on 10/13/21at 08:45; Start 10/07/21 at 10:15 Vancomycin HCl 1 gm/Sodium Chloride 250 ml @ 250 mls/hr 1X ONCE IV Last administered on 10/07/21at 21:42; Start 10/07/21 at 21:00; Stop 10/07/21 at 21:59; Status DC Acetaminophen (Tylenol) 650 mg PRN Q6HRS PRN PO TEMP > 100.3'F; Start 10/07/21 at 10:15 Al Hydroxide/Mg Hydroxide (Mylanta Plus Xs) 30 ml PRN Q3HRS PRN PO HEARTBURN / GAS; Start 10/07/21 at 10:15 Calcium Carbonate/ Glycine (Tums) 500 mg PRN Q3HRS PRN PO INDIGESTION; Start 10/07/21 at 10:15 Diphenhydramine HCl (Benadryl) 25 mg PRN Q6HRS PRN PO ITCHING; Start 10/07/21 at 10:15 Naloxone HCl (Narcan) 0.1 mg PRN Q2MIN PRN IV SEE COMMENTS; Start 10/07/21 at 10:15 Sodium Chloride (Normal Saline Flush) 3 ml QSHIFT PRN IV AFTER MEDS AND BLOOD DRAWS; Start 10/07/21 at 10:15 Potassium Chloride/Sodium Chloride 1,000 ml @ 75 mls/hr [id number] IV Last administered on 10/07/21at 20:01; Start 10/07/21 at 10:15; Stop 10/09/21 at 06:04; Status DC Oxycodone/ Acetaminophen (Percocet 5/325) 1 tab PRN Q4HRS PRN PO MILD PAIN, 1ST CHOICE Last administered on 10/10/21at 09:26; Start 10/07/21 at 10:15 Oxycodone/ Acetaminophen (Percocet 5/325) 2 tab PRN Q4HRS PRN PO MODERATE PAIN, SEVERE PAIN Last administered on 10/12/21at 21:28; Start 10/07/21 at 10:15 Methocarbamol (Robaxin) 750 mg PRN TID PRN PO MUSCLE SPASMS Last administered on 10/10/21at 08:23; Start 10/07/21 at 10:15 Docusate Sodium (Colace) 100 mg BID PO Last administered on 10/12/21at 21:27; Start 10/07/21 at 12:00 Magnesium Hydroxide (Milk Of Magnesia) 2,400 mg PRN Q12HR PRN PO CONSTIPATION; Start 10/07/21 at 10:15; Stop 10/11/21 at 09:09; Status DC Dextrose (Dextrose 50%-Water Syringe) 12.5 gm PRN Q15MIN PRN IV SEE COMMENTS; Start 10/07/21 at 10:15 Dextrose (Iv Dextrose 5%) 250 ml PRN Q15MIN PRN IV SEE COMMENTS; Start 10/07/21 at 10:15 Ketamine HCl (Ketamine) 50 mg STK-MED ONCE .ROUTE ; Start 10/07/21 at 08:30; Stop 10/07/21 at 10:30; Status DC Lidocaine HCl (Lidocaine Pf 2% Vial) 5 ml STK-MED ONCE .ROUTE ; Start 10/07/21 at 08:31; Stop 10/07/21 at 10:32; Status DC Lidocaine HCl (Lidocaine Pf 2% Vial) 5 ml STK-MED ONCE .ROUTE ; Start 10/07/21 at 08:31; Stop 10/07/21 at 10:32; Status DC Sodium Chloride (SODIUM CHLORIDE 20ml) 20 ml STK-MED ONCE IJ ; Start 10/07/21 at 08:31; Stop 10/07/21 at 10:32; Status DC Sodium Chloride (SODIUM CHLORIDE 20ml) 20 ml STK-MED ONCE IJ ; Start 10/07/21 at 08:34; Stop 10/07/21 at 10:34; Status DC Remifentanil HCl (Ultiva) 1 mg STK-MED ONCE IV ; Start 10/07/21 at 08:48; Stop 10/07/21 at 10:48; Status DC Sodium Chloride (SODIUM CHLORIDE 20ml) 20 ml STK-MED ONCE IJ ; Start 10/07/21 at 08:48; Stop 10/07/21 at 10:49; Status DC Sevoflurane (Ultane) 90 ml STK-MED ONCE IH ; Start 10/07/21 at 09:34; Stop 10/07/21 at 11:34; Status DC Ketamine HCl (Ketamine) 50 mg STK-MED ONCE .ROUTE ; Start 10/07/21 at 10:05; Stop 10/07/21 at 12:06; Status DC Lidocaine HCl (Lidocaine Pf 2% Vial) 5 ml STK-MED ONCE .ROUTE ; Start 10/07/21 at 10:06; Stop 10/07/21 at 12:06; Status DC Lidocaine HCl (Lidocaine Pf 2% Vial) 5 ml STK-MED ONCE .ROUTE ; Start 10/07/21 at 10:06; Stop 10/07/21 at 12:06; Status DC Sodium Chloride (SODIUM CHLORIDE 20ml) 20 ml STK-MED ONCE IJ ; Start 10/07/21 at 10:06; Stop 10/07/21 at 12:06; Status DC Sodium Chloride (SODIUM CHLORIDE 20ml) 20 ml STK-MED ONCE IJ ; Start 10/07/21 at 10:06; Stop 10/07/21 at 12:06; Status DC Remifentanil HCl (Ultiva) 1 mg STK-MED ONCE IV ; Start 10/07/21 at 10:42; Stop 10/07/21 at 12:42; Status DC Sodium Chloride (SODIUM CHLORIDE 20ml) 20 ml STK-MED ONCE IJ ; Start 10/07/21 at 10:42; Stop 10/07/21 at 12:42; Status DC Phenylephrine HCl ([place]-Synephrine Inj) 10 mg STK-MED ONCE .ROUTE ; Start 10/07/21 at 11:00; Stop 10/07/21 at 13:01; Status DC Cefazolin Sodium (Ancef) 1 gm STK-MED ONCE IVP ; Start 10/07/21 at 11:29; Stop 10/07/21 at 13:30; Status DC Gelatin (Gelfoam Size 100) 1 each STK-MED ONCE .ROUTE Last administered on 10/07/21at 14:14; Start 10/07/21 at 14:12; Stop 10/07/21 at 14:13; Status DC Thrombin 20,000 unit STK-MED ONCE TP Last administered on 10/07/21at 14:14; Start 10/07/21 at 14:12; Stop 10/07/21 at 14:13; Status DC Fentanyl Citrate (Fentanyl 2ml Vial) 100 mcg STK-MED ONCE .ROUTE ; Start 10/07/21 at 12:17; Stop 10/07/21 at 14:17; Status DC Fentanyl Citrate (Fentanyl 2ml Vial) 100 mcg STK-MED ONCE .ROUTE ; Start 10/07/21 at 15:20; Stop 10/07/21 at 15:20; Status DC Insulin Human Lispro (HumaLOG) 0-9 UNITS TIDWMEALS SQ Last administered on 10/12/21at 12:16; Start 10/07/21 at 17:00 Dextrose (Dextrose 50%-Water Syringe) 12.5 gm PRN Q15MIN PRN IV SEE COMMENTS; Start 10/07/21 at 16:30; Status UNV Dextrose (Iv Dextrose 5%) 250 ml PRN Q15MIN PRN IV SEE COMMENTS; Start 10/07/21 at 16:30; Status UNV Sennosides (Senna) 17.2 mg PRN BID PRN PO CONSTIPATION; Start 10/08/21 at 11:30 Methylprednisolone (Medrol) 8 mg BID PO Last administered on 10/08/21at 21:59; Start 10/08/21 at 12:00; Stop 10/08/21 at 21:01; Status DC Methylprednisolone (Medrol) 4 mg BIDPCLD PO Last administered on 10/08/21at 18:23; Start 10/08/21 at 13:30; Stop 10/08/21 at 17:31; Status DC Methylprednisolone (Medrol) 4 mg TIDPC PO Last administered on 10/09/21at 17:10; Start 10/09/21 at 08:30; Stop 10/09/21 at 17:31; Status DC Methylprednisolone (Medrol) 8 mg QHS PO Last administered on 10/09/21at 22:00; Start 10/09/21 at 21:00; Stop 10/09/21 at 21:01; Status DC Methylprednisolone (Medrol) 4 mg QIDAFTMEAL PO Last administered on 10/10/21at 21:18; Start 10/10/21 at 09:00; Stop 10/10/21 at 21:01; Status DC Methylprednisolone (Medrol) 4 mg TID PO Last administered on 10/11/21at 21:05; Start 10/11/21 at 09:00; Stop 10/11/21 at 21:01; Status DC Methylprednisolone (Medrol) 4 mg BID PO Last administered on 10/12/21at 21:27; Start 10/12/21 at 09:00; Stop 10/12/21 at 21:01; Status DC Methylprednisolone (Medrol) 4 mg DAILY PO ; Start 10/13/21 at 09:00; Stop 10/13/21 at 09:01; Status DC Tramadol HCl (Ultram) 50 mg PRN Q6HRS PRN PO MILD PAIN 1-3 Last administered on 10/09/21at 14:49; Start 10/09/21 at 13:30 Gabapentin (Neurontin) 600 mg TID PO Last administered on 10/12/21at 21:27; Star t 10/10/21 at 14:00 Bisacodyl (Dulcolax Tab) 10 mg DAILY PO Last administered on 10/12/21at 08:32; Start 10/10/21 at 15:00 Magnesium Hydroxide (Milk Of Magnesia) 2,400 mg PRN DAILY PRN PO CONSTIPATION; Start 10/10/21 at 14:45 Tramadol HCl (Ultram) 100 mg PRN Q6HRS PRN PO MODERATE PAIN, 1ST CHOICE; Start 10/11/21 at 09:15 Ondansetron HCl (Zofran) 4 mg PRN Q4HRS PRN IVP NAUSEA/VOMITING Last administered on 10/13/21at 06:08; Start 10/12/21 at 15:15 Potassium Chloride/Sodium Chloride 1,000 ml @ 75 mls/hr [id number] IV Last administered on 10/13/21at 06:05; Start 10/12/21 at 17:15 Active Scripts Active Reported Crestor (Rosuvastatin Calcium) 5 Mg Tablet 20 Mg PO HS Losartan Potassium 50 Mg Tablet 50 Mg PO DAILY Actos (Pioglitazone Hcl) 15 Mg Tablet 15 Mg PO DAILY Tresiba (Insulin Degludec) 100 Unit/1 Ml Vial 15 Unit SQ HS Humalog (Insulin Lispro) 100 Unit/1 Ml Vial 5-10 Unit SQ PRN BFRMEAL PRN Calcium 500+D Tablet Chew (Calcium Carbonate/Vitamin D3) 1 Each Tab.chew 1 Each PO DAILY Coq10 (Ubidecarenone) 50 Mg Tab.chew 200 Mg PO DAILY Ondansetron Odt (Ondansetron) 8 Mg Tab.rapdis 8 Mg PO DAILY PRN Miralax (Polyethylene Glycol 3350) 17 Gm Powd.pack 0.5 Pkt PO DAILY Senna Laxative (Sennosides) 8.6 Mg Tablet 8.6 Mg PO DAILY Claritin (Loratadine) 10 Mg Capsule 10 Mg PO DAILY PRN Zelnorm (Tegaserod Hydrogen Maleate) 6 Mg Tablet 6 Mg PO BID Alendronate Sodium 70 Mg Tablet 70 Mg PO WEEKLY Wellbutrin Xl (Bupropion Hcl) 300 Mg Tab.er.24h 300 Mg PO DAILY Gabapentin 600 Mg Tablet 600 Mg PO HS Gabapentin 600 Mg Tablet 300 Mg PO BIDACBL Metoprolol Succinate ( Xl ) (Metoprolol Succinate) 25 Mg Tab.er.24h 25 Mg PO DAILY Ropinirole Hcl 0.5 Mg Tablet 0.5 Mg PO BIDACBL Sinemet 25-100 Mg Tablet (Carbidopa/Levodopa) 1 Each Tablet 1.5 Tab PO TID Sinemet 25-100 Mg Tablet (Carbidopa/Levodopa) 1 Each Tablet 1 Tab PO DAILY08 Levothyroxine Sodium 125 Mcg Tablet 125 Mcg PO DAILYAC Vitals/I & O Vital Sign - Last 24 Hours 10/12/21 10/12/21 10/12/21 10/12/21 09:44 11:00 11:42 12:12 Temp 98.1 98.1 Pulse 77 Resp 18 B/P (MAP) 116/44 (68) Pulse Ox 94 O2 Delivery Room Air Room Air Room Air Room Air 10/12/21 10/12/21 10/12/21 10/12/21 13:06 13:36 14:32 15:00 Temp 97.8 97.8 Pulse 72 Resp 18 B/P (MAP) 93/46 (62) Pulse Ox 98 O2 Delivery Room Air Room Air Room Air Room Air 10/12/21 10/12/21 10/12/21 10/12/21 15:02 19:00 20:00 21:28 Temp 98.2 98.2 Pulse 75 Resp 14 15 B/P (MAP) 125/52 (76) Pulse Ox 100 100 O2 Delivery Room Air Room Air Room Air Room Air 10/12/21 10/12/21 10/13/21 10/13/21 22:06 23:00 02:23 02:54 Temp 98.0 98.0 Pulse 74 Resp 15 16 15 15 B/P (MAP) 132/45 (74) Pulse Ox 97 O2 Delivery Room Air Room Air Room Air Room Air 10/13/21 10/13/21 10/13/21 03:00 07:00 08:45 Temp 97.7 98.4 97.7 98.4 Pulse 78 83 Resp 14 18 B/P (MAP) 120/57 (78) 133/57 (82) Pulse Ox 100 97 O2 Delivery Room Air Room Air Room Air Intake and Output 10/12/21 10/12/21 10/13/21 15:00 23:00 07:00 Intake Total 1025 ml Balance 1025 ml Justifications for Admission Other Justification EMELYN RODRIGUEZ MD Oct 13, 2021 09:45
--- NOTE | 2021-10-13 09:54 | RAD ---
CT LUMBAR SPINE WO History: Lumbar radiculopathy. Postoperative. Technique: Noncontrast CT was performed of the lumbar spine. Multiplanar reconstructions were perform ed. Comparison: CT lumbar spine 10/07/2021 Findings: There are 5 nonrib-bearing lumbar type vertebral bodies with postsurgical changes from L3-L5 posterio r spinal fixation with bilateral pedicle screws at each level. The tip of the right L4 and L5 pedicle screws extends slightly into the soft tissues at the lateral cortex of the respective vertebral bodi es. No evidence of screw fracture. There is no acute fracture in the lumbar spine. Mild anterolisthesis of L3 on L4 and L4 on L5. Modera te L3-L4 and mild L4-S1 disc height loss. Multilevel facet hypertrophy with laminectomies at L3-L4. No intradural or epidural fluid collection is identified. In the midline subcutaneous fat there is a collection of fluid and air measuring approximately 2.9 cm AP by 2.3 cm lateral thigh 11.2 cm cranioc audal extending from the level of the L1 superior endplate to the level of the S1 superior endplate. This collection also tracks along the midline with foci of air within to the bilateral paraspinal sof t tissues and pedicles. Limited intra-abdominal evaluation demonstrates aorta iliac atherosclerotic calcifications. Normal ap pearance of the visualized bowel loops. Unremarkable uterus and adnexa. Normal bladder wall thickness . Impression: 1. Postsurgical features from L3-L5 posterior spinal fixation. Right L4 and L5 pedicle screws extend ing slightly lateral to the respective vertebral bodies as above. 2. Midline back subcutaneous fat collection of fluid with interspersed foci of air measuring approxi mately 2.9 x 2.3 x 11.2 cm and tracking into the paraspinous and facet spaces. This may represent pos toperative seroma with residual postsurgical air, however cannot exclude abscess in the appropriate c linical setting. Exposure: One or more of the following individualized dose reduction techniques were utilized for thi s examination: 1. Automated exposure control 2. Adjustment of the mA and/or kV according to patient size 3. Use of iterative reconstruction technique. Electronically signed by: Nithin Tiwari MD (10/13/2021 9:52 AM) [id number]
[2021-10-13] MEDS: traMADol 50 MG TABLET PO PRN ×2 (10:27→18:36)
[2021-10-13] MEDS: ACETAMINOPHEN 325 MG TABLET. PO PRN ×2 (10:27→18:36)
[2021-10-13 11:00] VITALS: BP 147/74
[2021-10-13] MEDS: GABAPENTIN 300 MG CAPSULE. PO SCH ×3 (11:48→20:25)
[2021-10-13] MEDS ORDERED: fentaNYL 12MCG/HR PATCH 1 PATCH PATCH.TD72 TD SCH (14:30)
[2021-10-13 15:00] VITALS: BP 139/56
[2021-10-13] MEDS: methylPREDNISolone 4 MG TABLET. PO SCH ×4 (16:03→20:26)
--- NOTE | 2021-10-13 17:10 | PDOC ---
PROGRESS NOTES Date of Service DATE: 10/13/21 TIME: 17:05 Subjective Subjective Patient seen at 1400 POD #6 S/P laminectomy L3-4 and fusion L3-5 pain improved currently but still intermittent left hip and lower leg pain Objective Objective Vital Signs Date Time Temp Pulse Resp B/P (MAP) Pulse Ox O2 Delivery O2 Flow Rate FiO2 10/13/21 16:04 Room Air 10/13/21 15:00 98.3 83 18 139/56 (83) 98 98.3 10/10/21 02:02 3.0 Intake and Output 10/13/21 07:00 Intake Total 1025 ml Balance 1025 ml Intake Oral 650 ml IV Total 375 ml # Voids 4 # Bowel Movements 1 Physical Exam General: Alert, Oriented X3, Cooperative MUSCULOSKELETAL: Other (HERRERA) Neuro: Normal speech Skin: Other (dressing changed, minimal old blood on dressing) Plan Plan of Care Lumbar CT reviewed with Dr. Messina, satisfactory continue current treatment Encouraged increased activity as tolerated, PT brace when up DC oxycodone due to nausea, will try fentanyl patch and tramadol as needed medrol dose pack plan for [facility] tomorrow Comment Review of Relevant I have reviewed the following items ene (where applicable) has been applied. Labs Laboratory Tests Test 10/11/21 18:32 10/11/21 18:42 10/11/21 20:42 10/12/21 07:41 Glucose (Fingerstick) 294 mg/dL (70-99) 231 mg/dL (70-99) 141 mg/dL (70-99) Coronavirus (COVID-19)(PCR) Not detected (NOT DETECTD) Test 10/12/21 11:41 10/12/21 16:47 10/12/21 20:51 10/13/21 08:14 Glucose (Fingerstick) 204 mg/dL (70-99) 134 mg/dL (70-99) 131 mg/dL (70-99) 161 mg/dL (70-99) Test 10/13/21 10:52 10/13/21 16:16 Glucose (Fingerstick) 127 mg/dL (70-99) 119 mg/dL (70-99) Laboratory Tests Test 10/12/21 20:51 10/13/21 08:14 10/13/21 10:52 10/13/21 16:16 Glucose (Fingerstick) 131 mg/dL (70-99) 161 mg/dL (70-99) 127 mg/dL (70-99) 119 mg/dL (70-99) Medications Current Medications Cefazolin Sodium 1 gm/Sodium Chloride 1,000 ml @ 1,000 mls/hr 1X ONCE IRR Last administered on 09/29/21at 13:00; Start 09/29/21 at 06:00; Stop 09/29/21 at 06:59; Status DC Fentanyl Citrate (Fentanyl 2ml Vial) 25 mcg PRN Q5MIN PRN IVP MILD PAIN 1-3; Start 09/29/21 at 06:00; Stop 09/30/21 at 05:59; Status DC Fentanyl Citrate (Fentanyl 2ml Vial) 50 mcg PRN Q5MIN PRN IVP MODERATE PAIN 4- 6; Start 09/29/21 at 06:00; Stop 09/30/21 at 05:59; Status DC Morphine Sulfate (Morphine Sulfate) 1 mg PRN Q10MIN PRN IVP SEVERE PAIN 7-10; Start 09/29/21 at 06:00; Stop 09/30/21 at 05:59; Status DC Ringer's Solution 1,000 ml @ 30 mls/hr Q24H IV ; Start 09/29/21 at 06:00; Stop 09/29/21 at 17:59; Status DC Hydromorphone HCl (Dilaudid) 0.5 mg PRN Q10MIN PRN IVP SEVERE PAIN 7-10, 2nd CHOICE; Start 09/29/21 at 06:00; Stop 09/30/21 at 05:59; Status DC Prochlorperazine Edisylate (Compazine) 5 mg PACU PRN PRN IVP NAUSEA, MRX1; Start 09/29/21 at 06:00; Stop 09/30/21 at 05:59; Status DC Cefazolin Sodium/ Dextrose 50 ml @ 100 mls/hr 1X PREOP PRN IV PRIOR TO PROCEDURE; Start 09/29/21 at 06:00; Stop 09/29/21 at 18:00; Status DC Cefazolin Sodium 1 gm/Sodium Chloride 1,000 ml @ 1,000 mls/hr 1X ONCE IRR Last administered on 10/07/21at 10:25; Start 10/06/21 at 14:00; Stop 10/06/21 at 14:59; Status DC Fentanyl Citrate (Fentanyl 2ml Vial) 25 mcg PRN Q5MIN PRN IVP MILD PAIN 1-3; Start 10/07/21 at 06:00; Stop 10/07/21 at 16:43; Status DC Fentanyl Citrate (Fentanyl 2ml Vial) 50 mcg PRN Q5MIN PRN IVP MODERATE PAIN 4-6 Last administered on 10/07/21at 15:30; Start 10/07/21 at 06:00; Stop 10/07/21 at 16:43; Status DC Morphine Sulfate (Morphine Sulfate) 1 mg PRN Q10MIN PRN IVP SEVERE PAIN 7-10; Start 10/07/21 at 06:00; Stop 10/07/21 at 16:48; Status DC Ringer's Solution 1,000 ml @ 30 mls/hr Q24H IV Last administered on 10/07/21at 07:37; Start 10/07/21 at 06:00; Stop 10/07/21 at 17:59; Status DC Hydromorphone HCl (Dilaudid) 0.5 mg PRN Q10MIN PRN IVP SEVERE PAIN 7-10, 2nd CHOICE; Start 10/07/21 at 06:00; Stop 10/07/21 at 16:43; Status DC Prochlorperazine Edisylate (Compazine) 5 mg PACU PRN PRN IVP NAUSEA, MRX1 Last administered on 10/07/21at 15:34; Start 10/07/21 at 06:00; Stop 10/07/21 at 16:43; Status DC Cefazolin Sodium/ Dextrose 50 ml @ 100 mls/hr 1X PREOP PRN IV PRIOR TO PROCEDURE Last administered on 10/07/21at 09:00; Start 10/07/21 at 06:00; Stop 10/07/21 at 16:41; Status DC Gelatin (Gelfoam Size 100) 1 each STK-MED ONCE .ROUTE Last administered on 10/07/21at 10:25; Start 10/07/21 at 06:35; Stop 10/07/21 at 06:35; Status DC Bupivacaine HCl/ Epinephrine Bitart (Sensorcain-Epi 0.5% Kit) 30 ml STK-MED ONCE .ROUTE Last administered on 10/07/21at 10:25; Start 10/07/21 at 06:35; Stop 10/07/21 at 06:35; Status DC Ketorolac Tromethamine (Toradol Im) 60 mg STK-MED ONCE .ROUTE Last administered on 10/07/21at 10:25; Start 10/07/21 at 06:35; Stop 10/07/21 at 06:35; Status DC Thrombin 20,000 unit STK-MED ONCE TP Last administered on 10/07/21at 10:25; Start 10/07/21 at 06:35; Stop 10/07/21 at 06:35; Status DC Vancomycin HCl 1 gm/Sodium Chloride 250 ml @ 250 mls/hr PREOP PRN PRN IV PRIOR TO PROCEDURE Last administered on 10/07/21at 09:20; Start 10/08/21 at 06:00; Stop 10/07/21 at 16:47; Status DC Insulin Human Lispro (HumaLOG VIAL for OP,RR ONLY) 0-10 units PRN Q1HR PRN SQ PER PROTOCOL Last administered on 10/07/21at 15:07; Start 10/07/21 at 07:45; Stop 10/07/21 at 16:43; Status DC Propofol (Diprivan) 200 mg STK-MED ONCE IV ; Start 10/07/21 at 06:28; Stop 10/07/21 at 08:28; Status DC Glycopyrrolate (Robinul) 1 mg STK-MED ONCE .ROUTE ; Start 10/07/21 at 06:28; Stop 10/07/21 at 08:28; Status DC Dexamethasone Sodium Phosphate (Decadron) 4 mg STK-MED ONCE .ROUTE ; Start 10/07/21 at 06:28; Stop 10/07/21 at 08:29; Status DC Lidocaine HCl (Lidocaine Pf 2% Vial) 5 ml STK-MED ONCE .ROUTE ; Start 10/07/21 at 06:28; Stop 10/07/21 at 08:29; Status DC Ondansetron HCl (Zofran) 4 mg STK-MED ONCE .ROUTE ; Start 10/07/21 at 06:28; Stop 10/07/21 at 08:29; Status DC Phenylephrine HCl (PHENYLEPHRINE in 0.9% NACL PF) 1 mg STK-MED ONCE IV ; Start 10/07/21 at 06:28; Stop 10/07/21 at 08:29; Status DC Sugammadex Sodium (Bridion) 200 mg 1X ONCE IVP ; Start 10/07/21 at 08:45; Stop 10/07/21 at 08:46; Status DC Fentanyl Citrate (Fentanyl 2ml Vial) 100 mcg STK-MED ONCE .ROUTE ; Start 10/07/21 at 06:30; Stop 10/07/21 at 08:30; Status DC Succinylcholine Chloride (Anectine) 200 mg STK-MED ONCE .ROUTE ; Start 10/07/21 at 06:30; Stop 10/07/21 at 08:30; Status DC Rocuronium Seaton (Zemuron) 50 mg STK-MED ONCE .ROUTE ; Start 10/07/21 at 06:30; Stop 10/07/21 at 08:30; Status DC Midazolam HCl (Versed) 2 mg STK-MED ONCE .ROUTE ; Start 10/07/21 at 06:30; Stop 10/07/21 at 08:31; Status DC Remifentanil HCl (Ultiva) 1 mg STK-MED ONCE IV ; Start 10/07/21 at 06:31; Stop 10/07/21 at 08:31; Status DC Sodium Chloride (SODIUM CHLORIDE 20ml) 20 ml STK-MED ONCE IJ ; Start 10/07/21 at 06:31; Stop 10/07/21 at 08:31; Status DC Propofol 50 ml @ As Directed STK-MED ONCE IV ; Start 10/07/21 at 06:50; Stop 10/07/21 at 08:50; Status DC Carbidopa/Levodopa (Sinemet 25/100) 1 tab DAILY08 PO Last administered on 10/12/21at 08:33; Start 10/08/21 at 08:00 Carbidopa/Levodopa (Sinemet 25/100) 1.5 tab TID PO Last administered on 10/13/21at 16:04; Start 10/07/21 at 14:00 Insulin Human Lispro (HumaLOG) 5-10 UNITS home slid... PRN BFRMEAL PRN SQ diabetes control; Start 10/07/21 at 11:45; Status UNV Levothyroxine Sodium (Synthroid) 125 mcg DAILY06 PO Last administered on 10/13/21at 06:05; Start 10/08/21 at 06:00 Losartan Potassium (Cozaar) 50 mg DAILY PO Last administered on 10/12/21 09:42; Start 10/07/21 at 10:00 Metoprolol Succinate (Toprol Xl) 25 mg DAILY PO Last administered on 10/12/21 09:42; Start 10/08/21 at 09:00 Pioglitazone HCl (Actos) 15 mg DAILY PO Last administered on 10/12/21 08:32; Start 10/07/21 at 12:00 Polyethylene Glycol (miraLAX PACKET) 8.5 gm DAILY PO Last administered on 10/12/21 08:33; Start 10/07/21 at 12:00 Sennosides (Senna) 8.6 mg DAILY PO Last administered on 10/12/21 09:42; Start 10/07/21 at 12:00 Non-Formulary Medication (Alendronate Sodium ) 70 mg WEEKLY PO ; Start 10/14/21 at 09:00; Status UNV Bupropion HCl (Wellbutrin Xl) 300 mg DAILY PO Last administered on 10/12/21 08:32; Start 10/07/21 at 12:00 Calcium/Vitamin D (Oscal D 500mg/ 200uts) 1 tab DAILY PO Last administered on 10/12/21 08:32; Start 10/07/21 at 12:00 Gabapentin (Neurontin) 300 mg BIDACBL PO Last administered on 10/10/21 12:03; Start 10/07/21 at 11:30; Stop 10/10/21 at 13:42; Status DC Gabapentin (Neurontin) 600 mg HS PO Last administered on 10/09/21at 22:01; Start 10/07/21 at 21:00; Stop 10/10/21 at 13:42; Status DC Insulin Glargine (Lantus Syringe) 15 unit QHS SQ Last administered on 10/11/21 21:16; Start 10/07/21 at 21:00 Cetirizine HCl (ZyrTEC) 10 mg PRN DAILY PRN PO ALLERGIES; Start 10/07/21 at 11:15 Ondansetron HCl (Zofran Odt) 8 mg PRN DAILY PRN PO NAUSEA/VOMITING Last administered on 10/12/21at 10:04; Start 10/07/21 at 11:15; Stop 10/12/21 at 15:03; Status DC Ropinirole HCl (Requip) 0.5 mg BIDACBL PO Last administered on 10/13/21at 06:08; Start 10/07/21 at 11:30 Atorvastatin Calcium (Lipitor) 80 mg HS PO Last administered on 10/11/21at 21:06; Start 10/07/21 at 21:00 Non-Formulary Medication (Tegaserod Hydrogen Maleate (Zelnorm)) 6 mg BID PO ; Start 10/07/21 at 21:00; Stop 10/09/21 at 07:05; Status DC Non-Formulary Medication (Ubidecarenone (Coq10)) 200 mg DAILY PO ; Start 10/08/21 at 09:00; Status UNV Fentanyl Citrate (Fentanyl 2ml Vial) 50 mcg PRN Q2HR PRN IVP MODERATE TO SEVERE PAIN Last administered on 10/13/21at 08:45; Start 10/07/21 at 10:15 Vancomycin HCl 1 gm/Sodium Chloride 250 ml @ 250 mls/hr 1X ONCE IV Last administered on 10/07/21at 21:42; Start 10/07/21 at 21:00; Stop 10/07/21 at 21:59; Status DC Acetaminophen (Tylenol) 650 mg PRN Q6HRS PRN PO TEMP > 100.3'F Last adm inistered on 10/13/21at 10:27; Start 10/07/21 at 10:15 Al Hydroxide/Mg Hydroxide (Mylanta Plus Xs) 30 ml PRN Q3HRS PRN PO HEARTBURN / GAS; Start 10/07/21 at 10:15 Calcium Carbonate/ Glycine (Tums) 500 mg PRN Q3HRS PRN PO INDIGESTION; Start 10/07/21 at 10:15 Diphenhydramine HCl (Benadryl) 25 mg PRN Q6HRS PRN PO ITCHING; Start 10/07/21 at 10:15 Naloxone HCl (Narcan) 0.1 mg PRN Q2MIN PRN IV SEE COMMENTS; Start 10/07/21 at 10:15 Sodium Chloride (Normal Saline Flush) 3 ml QSHIFT PRN IV AFTER MEDS AND BLOOD DRAWS; Start 10/07/21 at 10:15 Potassium Chloride/Sodium Chloride 1,000 ml @ 75 mls/hr [id number] IV Last administered on 10/07/21at 20:01; Start 10/07/21 at 10:15; Stop 10/09/21 at 06:04; Status DC Oxycodone/ Acetaminophen (Percocet 5/325) 1 tab PRN Q4HRS PRN PO MILD PAIN, 1ST CHOICE Last administered on 10/10/21at 09:26; Start 10/07/21 at 10:15; Stop 10/13/21 at 14:04; Status DC Oxycodone/ Acetaminophen (Percocet 5/325) 2 tab PRN Q4HRS PRN PO MODERATE PAIN, SEVERE PAIN Last administered on 10/12/21at 21:28; Start 10/07/21 at 10:15; Stop 10/13/21 at 14:04; Status DC Methocarbamol (Robaxin) 750 mg PRN TID PRN PO MUSCLE SPASMS Last administered on 10/10/21at 08:23; Start 10/07/21 at 10:15 Docusate Sodium (Colace) 100 mg BID PO Last administered on 10/12/21at 21:27; Start 10/07/21 at 12:00 Magnesium Hydroxide (Milk Of Magnesia) 2,400 mg PRN Q12HR PRN PO CONSTIPATION; Start 10/07/21 at 10:15; Stop 10/11/21 at 09:09; Status DC Dextrose (Dextrose 50%-Water Syringe) 12.5 gm PRN Q15MIN PRN IV SEE COMMENTS; Start 10/07/21 at 10:15 Dextrose (Iv Dextrose 5%) 250 ml PRN Q15MIN PRN IV SEE COMMENTS; Start 10/07/21 at 10:15 Ketamine HCl (Ketamine) 50 mg STK-MED ONCE .ROUTE ; Start 10/07/21 at 08:30; Stop 10/07/21 at 10:30; Status DC Lidocaine HCl (Lidocaine Pf 2% Vial) 5 ml STK-MED ONCE .ROUTE ; Start 10/07/21 at 08:31; Stop 10/07/21 at 10:32; Status DC Lidocaine HCl (Lidocaine Pf 2% Vial) 5 ml STK-MED ONCE .ROUTE ; Start 10/07/21 at 08:31; Stop 10/07/21 at 10:32; Status DC Sodium Chloride (SODIUM CHLORIDE 20ml) 20 ml STK-MED ONCE IJ ; Start 10/07/21 at 08:31; Stop 10/07/21 at 10:32; Status DC Sodium Chloride (SODIUM CHLORIDE 20ml) 20 ml STK-MED ONCE IJ ; Start 10/07/21 at 08:34; Stop 10/07/21 at 10:34; Status DC Remifentanil HCl (Ultiva) 1 mg STK-MED ONCE IV ; Start 10/07/21 at 08:48; Stop 10/07/21 at 10:48; Status DC Sodium Chloride (SODIUM CHLORIDE 20ml) 20 ml STK-MED ONCE IJ ; Start 10/07/21 at 08:48; Stop 10/07/21 at 10:49; Status DC Sevoflurane (Ultane) 90 ml STK-MED ONCE IH ; Start 10/07/21 at 09:34; Stop 10/07/21 at 11:34; Status DC Ketamine HCl (Ketamine) 50 mg STK-MED ONCE .ROUTE ; Start 10/07/21 at 10:05; Stop 10/07/21 at 12:06; Status DC Lidocaine HCl (Lidocaine Pf 2% Vial) 5 ml STK-MED ONCE .ROUTE ; Start 10/07/21 at 10:06; Stop 10/07/21 at 12:06; Status DC Lidocaine HCl (Lidocaine Pf 2% Vial) 5 ml STK-MED ONCE .ROUTE ; Start 10/07/21 at 10:06; Stop 10/07/21 at 12:06; Status DC Sodium Chloride (SODIUM CHLORIDE 20ml) 20 ml STK-MED ONCE IJ ; Start 10/07/21 at 10:06; Stop 10/07/21 at 12:06; Status DC Sodium Chloride (SODIUM CHLORIDE 20ml) 20 ml STK-MED ONCE IJ ; Start 10/07/21 at 10:06; Stop 10/07/21 at 12:06; Status DC Remifentanil HCl (Ultiva) 1 mg STK-MED ONCE IV ; Start 10/07/21 at 10:42; Stop 10/07/21 at 12:42; Status DC Sodium Chloride (SODIUM CHLORIDE 20ml) 20 ml STK-MED ONCE IJ ; Start 10/07/21 at 10:42; Stop 10/07/21 at 12:42; Status DC Phenylephrine HCl (Franklin-Synephrine Inj) 10 mg STK-MED ONCE .ROUTE ; Start 10/07/21 at 11:00; Stop 10/07/21 at 13:01; Status DC Cefazolin Sodium (Ancef) 1 gm STK-MED ONCE IVP ; Start 10/07/21 at 11:29; Stop 10/07/21 at 13:30; Status DC Gelatin (Gelfoam Size 100) 1 each STK-MED ONCE .ROUTE Last administered on 10/07/21at 14:14; Start 10/07/21 at 14:12; Stop 10/07/21 at 14:13; Status DC Thrombin 20,000 unit STK-MED ONCE TP Last administered on 10/07/21at 14:14; Start 10/07/21 at 14:12; Stop 10/07/21 at 14:13; Status DC Fentanyl Citrate (Fentanyl 2ml Vial) 100 mcg STK-MED ONCE .ROUTE ; Start 10/07/21 at 12:17; Stop 10/07/21 at 14:17; Status DC Fentanyl Citrate (Fentanyl 2ml Vial) 100 mcg STK-MED ONCE .ROUTE ; Start 10/07/21 at 15:20; Stop 10/07/21 at 15:20; Status DC Insulin Human Lispro (HumaLOG) 0-9 UNITS TIDWMEALS SQ Last administered on 10/12/21at 12:16; Start 10/07/21 at 17:00 Dextrose (Dextrose 50%-Water Syringe) 12.5 gm PRN Q15MIN PRN IV SEE COMMENTS; Start 10/07/21 at 16:30; Status UNV Dextrose (Iv Dextrose 5%) 250 ml PRN Q15MIN PRN IV SEE COMMENTS; Start 10/07/21 at 16:30; Status UNV Sennosides (Senna) 17.2 mg PRN BID PRN PO CONSTIPATION, 1ST CHOICE; Start 10/08/21 at 11:30 Methylprednisolone (Medrol) 8 mg BID PO Last administered on 10/08/21at 21:59; Start 10/08/21 at 12:00; Stop 10/08/21 at 21:01; Status DC Methylprednisolone (Medrol) 4 mg BIDPCLD PO Last administered on 10/08/21at 18:23; Start 10/08/21 at 13:30; Stop 10/08/21 at 17:31; Status DC Methylprednisolone (Medrol) 4 mg TIDPC PO Last administered on 10/09/21at 17:10; Start 10/09/21 at 08:30; Stop 10/09/21 at 17:31; Status DC Methylprednisolone (Medrol) 8 mg QHS PO Last administered on 10/09/21at 22:00; Start 10/09/21 at 21:00; Stop 10/09/21 at 21:01; Status DC Methylprednisolone (Medrol) 4 mg QIDAFTMEAL PO Last administered on 10/10/21at 21:18; Start 10/10/21 at 09:00; Stop 10/10/21 at 21:01; Status DC Methylprednisolone (Medrol) 4 mg TID PO Last administered on 10/11/21at 21:05; Start 10/11/21 at 09:00; Stop 10/11/21 at 21:01; Status DC Methylprednisolone (Medrol) 4 mg BID PO Last administered on 10/12/21 21:27; Start 10/12/21 at 09:00; Stop 10/12/21 at 21:01; Status DC Methylprednisolone (Medrol) 4 mg DAILY PO ; Start 10/13/21 at 09:00; Stop 10/13/21 at 09:01; Status DC Tramadol HCl (Ultram) 50 mg PRN Q6HRS PRN PO MILD PAIN 1-3 Last administered on 10/09/21at 14:49; Start 10/09/21 at 13:30 Gabapentin (Neurontin) 600 mg TID PO Last administered on 10/13/21at 16:03; Start 10/10/21 at 14:00 Bisacodyl (Dulcolax Tab) 10 mg DAILY PO Last administered on 10/12/21at 08:32; Start 10/10/21 at 15:00 Magnesium Hydroxide (Milk Of Magnesia) 2,400 mg PRN DAILY PRN PO CONSTIPATION, 2ND CHOICE; Start 10/10/21 at 14:45 Tramadol HCl (Ultram) 100 mg PRN Q6HRS PRN PO MODERATE PAIN, 1ST CHOICE Last administered on 10/13/21at 10:27; Start 10/11/21 at 09:15 Ondansetron HCl (Zofran) 4 mg PRN Q4HRS PRN IVP NAUSEA/VOMITING Last administered on 10/13/21at 06:08; Start 10/12/21 at 15:15 Potassium Chloride/Sodium Chloride 1,000 ml @ 75 mls/hr [id number] IV Last administered on 10/13/21at 06:05; Start 10/12/21 at 17:15 Fentanyl (Duragesic 12mcg/ Hr Patch) 1 patch Q3DAYS TD Last administered on 10/13/21at 16:04; Start 10/13/21 at 14:30 Methylprednisolone (Medrol) 8 mg BID PO Last administered on 10/13/21at 16:03; Start 10/13/21 at 09:00; Stop 10/13/21 at 21:01 Methylprednisolone (Medrol) 4 mg BIDPCLD PO Last administered on 10/13/21 16:03; Start 10/13/21 at 12:30; Stop 10/13/21 at 17:31 Methylprednisolone (Medrol) 4 mg TIDPC PO ; Start 10/14/21 at 08:30; Stop 10/14/21 at 17:31 Methylprednisolone (Medrol) 8 mg QHS PO ; Start 10/14/21 at 21:00; Stop 10/14/21 at 21:01 Methylprednisolone (Medrol) 4 mg QIDAFTMEAL PO ; Start 10/15/21 at 09:00; Stop 10/15/21 at 21:01 Methylprednisolone (Medrol) 4 mg TID PO ; Start 10/16/21 at 09:00; Stop 10/16/21 at 21:01 Methylprednisolone (Medrol) 4 mg BID PO ; Start 10/17/21 at 09:00; Stop 10/17/21 at 21:01 Methylprednisolone (Medrol) 4 mg DAILY PO ; Start 10/18/21 at 09:00; Stop 10/18/21 at 09:01 Active Scripts Active Reported Crestor (Rosuvastatin Calcium) 5 Mg Tablet 20 Mg PO HS Losartan Potassium 50 Mg Tablet 50 Mg PO DAILY Actos (Pioglitazone Hcl) 15 Mg Tablet 15 Mg PO DAILY Tresiba (Insulin Degludec) 100 Unit/1 Ml Vial 15 Unit SQ HS Humalog (Insulin Lispro) 100 Unit/1 Ml Vial 5-10 Unit SQ PRN BFRMEAL PRN Calcium 500+D Tablet Chew (Calcium Carbonate/Vitamin D3) 1 Each Tab.chew 1 Each PO DAILY Coq10 (Ubidecarenone) 50 Mg Tab.chew 200 Mg PO DAILY Ondansetron Odt (Ondansetron) 8 Mg Tab.rapdis 8 Mg PO DAILY PRN Miralax (Polyethylene Glycol 3350) 17 Gm Powd.pack 0.5 Pkt PO DAILY Senna Laxative (Sennosides) 8.6 Mg Tablet 8.6 Mg PO DAILY Claritin (Loratadine) 10 Mg Capsule 10 Mg PO DAILY PRN Zelnorm (Tegaserod Hydrogen Maleate) 6 Mg Tablet 6 Mg PO BID Alendronate Sodium 70 Mg Tablet 70 Mg PO WEEKLY Wellbutrin Xl (Bupropion Hcl) 300 Mg Tab.er.24h 300 Mg PO DAILY Gabapentin 600 Mg Tablet 600 Mg PO HS Gabapentin 600 Mg Tablet 300 Mg PO BIDACBL Metoprolol Succinate ( Xl ) (Metoprolol Succinate) 25 Mg Tab.er.24h 25 Mg PO DAILY Ropinirole Hcl 0.5 Mg Tablet 0.5 Mg PO BIDACBL Sinemet 25-100 Mg Tablet (Carbidopa/Levodopa) 1 Each Tablet 1.5 Tab PO TID Sinemet 25-100 Mg Tablet (Carbidopa/Levodopa) 1 Each Tablet 1 Tab PO DAILY08 Levothyroxine Sodium 125 Mcg Tablet 125 Mcg PO DAILYAC Vitals/I & O Vital Sign - Last 24 Hours 10/12/21 10/12/21 10/12/21 10/12/21 19:00 20:00 21:28 22:06 Temp 98.2 98.2 Pulse 75 Resp 14 15 15 B/P (MAP) 125/52 (76) Pulse Ox 100 100 O2 Delivery Room Air Room Air Room Air Room Air 10/12/21 10/13/21 10/13/21 10/13/21 23:00 02:23 02:54 03:00 Temp 98.0 97.7 98.0 97.7 Pulse 74 78 Resp 16 15 15 14 B/P (MAP) 132/45 (74) 120/57 (78) Pulse Ox 97 100 O2 Delivery Room Air Room Air Room Air Room Air 10/13/21 10/13/21 10/13/21 10/13/21 07:00 08:00 08:45 09:15 Temp 98.4 98.4 Pulse 83 Resp 18 B/P (MAP) 133/57 (82) Pulse Ox 97 O2 Delivery Room Air Room Air Room Air Room Air 10/13/21 10/13/21 10/13/21 10/13/21 10:27 10:57 11:00 15:00 Temp 98.2 98.3 98.2 98.3 Pulse 80 83 Resp 18 18 B/P (MAP) 147/74 (98) 139/56 (83) Pulse Ox 98 98 O2 Delivery Room Air Room Air Room Air Room Air 10/13/21 16:04 O2 Delivery Room Air Intake and Output 10/12/21 10/12/21 10/13/21 15:00 23:00 07:00 Intake Total 1025 ml Balance 1025 ml Justifications for Admission Other Justification BRENDA LEAHY [employer] Oct 13, 2021 17:10
[2021-10-13 19:00] VITALS: BP 123/57
--- NOTE | 2021-10-13 19:07 | PATHOLOGY ---
[facility] Accession Number: [id number] . 01 Material submitted: . vertebral column - LUMBAR DECOMPRESSION . 01 Clinical history: . LUMBAR STENOSIS, SPONDYLOLISTHIASIS LUMBAR DECOMRPRESSION L3-4, LUMBAR POSTERIOR LATERAL FUSION AND POSTERIOR INSTRUMENTATION L3-4, L4-5 . 02 Diagnosis: Bone and soft tissue "L3-4 L4-5", excision: - Fragments of reactive bone and hyaline cartilage. - Fragments of fibrocartilage with degenerative changes. - Negative for malignancy. ([facility]; 10/13/2021) P 10/13/2021 1458 Local . 02 Electronically signed: . Checo Melendrez MD, Pathologist NPI- [id number] . 01 Gross description: . The specimen is received in formalin, labeled "Paz [place], lumbar decompression". Received are multiple segments of pale thompson to pink-thompson fibrous tissue admixed with fragments of gritty bone measuring 2.8 x 2.3 x 1.2 cm in aggregate dimensions. The specimen is submitted admitting representative in cassette A1, following light decalcification. ([facility]; 10/10/2021) [facility] 10/10/2021 1658 Local . 02 Pathologist provided ICD-10: M99.73 . 02 CPT . 485464, [id number] Specimen Comment: A courtesy copy of this report has been sent to [phone], [phone] Specimen Comment: [id number] Specimen Comment: Report sent to / DR WEBSTER Specimen Comment: A duplicate report has been generated due to demographic updates. Performed at: 01 [facility] [address] [facility] [address] [place] [id number] MD Mahesh Holman MD Phone: [phone] Performed at: [address] [facility] [id number] MD Felix Souza MD Phone: [phone]
[2021-10-13] MEDS: ATORVASTATIN CALCIUM 40 MG TABLET. PO SCH (20:25)
[2021-10-13] MEDS: INSULIN GLARGINE SYRINGE. SQ SCH (21:43)
[2021-10-13 23:00] VITALS: BP 139/58
[2021-10-14] MEDS: rOPINIRole 0.25 MG TABLET. PO SCH ×2 (06:04→10:43)
[2021-10-14] MEDS: LEVOTHYROXINE 125 MCG TABLET PO SCH (06:05)
[2021-10-14] MEDS: ACETAMINOPHEN 325 MG TABLET. PO PRN ×2 (06:05→12:00)
[2021-10-14] MEDS: traMADol 50 MG TABLET PO PRN ×2 (06:05→11:59)
[2021-10-14] MEDS: CARBIDOPA/LEVODOPA 25/100MG TABLET PO SCH ×3 (08:00→13:13)
[2021-10-14] MEDS: GABAPENTIN 300 MG CAPSULE. PO SCH ×2 (08:33→13:14)
[2021-10-14] MEDS: PIOGLITAZONE 15 MG TABLET. PO SCH (08:33)
[2021-10-14] MEDS: methylPREDNISolone 4 MG TABLET. PO SCH ×3 (08:34→17:00)
[2021-10-14] MEDS: DOCUSATE SODIUM 100 MG CAPSULE. PO SCH (08:35)
[2021-10-14] MEDS: LOSARTAN POTASSIUM 50 MG TABLET. PO SCH (08:35)
[2021-10-14] MEDS: POLYETHYLENE GLYCOL 3350 17 GM PACKET. PO SCH (08:36)
[2021-10-14] MEDS: BISACODYL 5 MG TABLET.DR. PO SCH (08:36)
[2021-10-14] MEDS: SENNOSIDES 8.6 MG TABLET PO SCH (08:36)
[2021-10-14] MEDS: METOPROLOL SUCC 24HR ER 25 MG TAB.ER.24H. PO SCH (08:37)
[2021-10-14] MEDS: buPROPion XL 150 MG TAB.ER.24H. PO SCH (08:38)
[2021-10-14] MEDS: CALCIUM CARB/VIT D3 500/200 TABLET. PO SCH (08:38)
[2021-10-14] MEDS: POTASSIUM CL 20MEQ-0.45% NACL 1,000 ML IV SCH (08:38)
[2021-10-14] MEDS: INSULIN LISPRO 300 UNITS/3 ML VIAL. SQ SCH ×3 (08:57→16:59)
[2021-10-14] MEDS ORDERED: NON FORMULARY ITEM (Alendronate Sodium 70 MG) PO SCH (09:00)
--- NOTE | 2021-10-14 10:03 | PDOC ---
PROGRESS NOTES Date of Service DATE: 10/14/21 TIME: 10:01 Subjective Subjective She admits continued low back pain with radiation to her thighs. Objective Objective Vital Signs Date Time Temp Pulse Resp B/P (MAP) Pulse Ox O2 Delivery O2 Flow Rate FiO2 10/14/21 08:35 84 125/50 10/14/21 08:00 Room Air 10/14/21 06:35 16 97 10/14/21 06:05 3.0 10/13/21 23:00 97.8 97.8 Intake and Output 10/14/21 07:00 Intake Total 150 ml Balance 150 ml Intake Oral 150 ml # Voids 4 Physical Exam Physical Exam She is alert,supine in bed and eating breakfast in bed and she continues with painfully limited lumbar spine ROM and no change with her neurological status. Plan Plan of Care To continue present rehab efforts as tolerated and she is to decide on rehab unit transfer on 10/17/2021. Comment Review of Relevant I have reviewed the following items ene (where applicable) has been applied. Labs Laboratory Tests Test 10/12/21 11:41 10/12/21 16:47 10/12/21 20:51 10/13/21 08:14 Glucose (Fingerstick) 204 mg/dL (70-99) 134 mg/dL (70-99) 131 mg/dL (70-99) 161 mg/dL (70-99) Test 10/13/21 10:52 10/13/21 16:16 10/13/21 21:33 10/14/21 08:32 Glucose (Fingerstick) 127 mg/dL (70-99) 119 mg/dL (70-99) 342 mg/dL (70-99) 249 mg/dL (70-99) Laboratory Tests Test 10/13/21 10:52 10/13/21 16:16 10/13/21 21:33 10/14/21 08:32 Glucose (Fingerstick) 127 mg/dL (70-99) 119 mg/dL (70-99) 342 mg/dL (70-99) 249 mg/dL (70-99) Medications Current Medications Cefazolin Sodium 1 gm/Sodium Chloride 1,000 ml @ 1,000 mls/hr 1X ONCE IRR Last administered on 09/29/21at 13:00; Start 09/29/21 at 06:00; Stop 09/29/21 at 06:59; Status DC Fentanyl Citrate (Fentanyl 2ml Vial) 25 mcg PRN Q5MIN PRN IVP MILD PAIN 1-3; Start 09/29/21 at 06:00; Stop 09/30/21 at 05:59; Status DC Fentanyl Citrate (Fentanyl 2ml Vial) 50 mcg PRN Q5MIN PRN IVP MODERATE PAIN 4- 6; Start 09/29/21 at 06:00; Stop 09/30/21 at 05:59; Status DC Morphine Sulfate (Morphine Sulfate) 1 mg PRN Q10MIN PRN IVP SEVERE PAIN 7-10; Start 09/29/21 at 06:00; Stop 09/30/21 at 05:59; Status DC Ringer's Solution 1,000 ml @ 30 mls/hr Q24H IV ; Start 09/29/21 at 06:00; Stop 09/29/21 at 17:59; Status DC Hydromorphone HCl (Dilaudid) 0.5 mg PRN Q10MIN PRN IVP SEVERE PAIN 7-10, 2nd CHOICE; Start 09/29/21 at 06:00; Stop 09/30/21 at 05:59; Status DC Prochlorperazine Edisylate (Compazine) 5 mg PACU PRN PRN IVP NAUSEA, MRX1; Start 09/29/21 at 06:00; Stop 09/30/21 at 05:59; Status DC Cefazolin Sodium/ Dextrose 50 ml @ 100 mls/hr 1X PREOP PRN IV PRIOR TO PROCEDURE; Start 09/29/21 at 06:00; Stop 09/29/21 at 18:00; Status DC Cefazolin Sodium 1 gm/Sodium Chloride 1,000 ml @ 1,000 mls/hr 1X ONCE IRR Last administered on 10/07/21at 10:25; Start 10/06/21 at 14:00; Stop 10/06/21 at 14:59; Status DC Fentanyl Citrate (Fentanyl 2ml Vial) 25 mcg PRN Q5MIN PRN IVP MILD PAIN 1-3; Start 10/07/21 at 06:00; Stop 10/07/21 at 16:43; Status DC Fentanyl Citrate (Fentanyl 2ml Vial) 50 mcg PRN Q5MIN PRN IVP MODERATE PAIN 4-6 Last administered on 10/07/21at 15:30; Start 10/07/21 at 06:00; Stop 10/07/21 at 16:43; Status DC Morphine Sulfate (Morphine Sulfate) 1 mg PRN Q10MIN PRN IVP SEVERE PAIN 7-10; Start 10/07/21 at 06:00; Stop 10/07/21 at 16:48; Status DC Ringer's Solution 1,000 ml @ 30 mls/hr Q24H IV Last administered on 10/07/21at 07:37; Start 10/07/21 at 06:00; Stop 10/07/21 at 17:59; Status DC Hydromorphone HCl (Dilaudid) 0.5 mg PRN Q10MIN PRN IVP SEVERE PAIN 7-10, 2nd CHOICE; Start 10/07/21 at 06:00; Stop 10/07/21 at 16:43; Status DC Prochlorperazine Edisylate (Compazine) 5 mg PACU PRN PRN IVP NAUSEA, MRX1 Last administered on 10/07/21at 15:34; Start 10/07/21 at 06:00; Stop 10/07/21 at 16:43; Status DC Cefazolin Sodium/ Dextrose 50 ml @ 100 mls/hr 1X PREOP PRN IV PRIOR TO PROCEDURE Last administered on 10/07/21at 09:00; Start 10/07/21 at 06:00; Stop 10/07/21 at 16:41; Status DC Gelatin (Gelfoam Size 100) 1 each STK-MED ONCE .ROUTE Last administered on 10/07/21at 10:25; Start 10/07/21 at 06:35; Stop 10/07/21 at 06:35; Status DC Bupivacaine HCl/ Epinephrine Bitart (Sensorcain-Epi 0.5% Kit) 30 ml STK-MED ONCE .ROUTE Last administered on 10/07/21at 10:25; Start 10/07/21 at 06:35; Stop 10/07/21 at 06:35; Status DC Ketorolac Tromethamine (Toradol Im) 60 mg STK-MED ONCE .ROUTE Last administered on 10/07/21at 10:25; Start 10/07/21 at 06:35; Stop 10/07/21 at 06:35; Status DC Thrombin 20,000 unit STK-MED ONCE TP Last administered on 10/07/21at 10:25; Start 10/07/21 at 06:35; Stop 10/07/21 at 06:35; Status DC Vancomycin HCl 1 gm/Sodium Chloride 250 ml @ 250 mls/hr PREOP PRN PRN IV PRIOR TO PROCEDURE Last administered on 10/07/21at 09:20; Start 10/08/21 at 06:00; Stop 10/07/21 at 16:47; Status DC Insulin Human Lispro (HumaLOG VIAL for OP,RR ONLY) 0-10 units PRN Q1HR PRN SQ PER PROTOCOL Last administered on 10/07/21at 15:07; Start 10/07/21 at 07:45; Stop 10/07/21 at 16:43; Status DC Propofol (Diprivan) 200 mg STK-MED ONCE IV ; Start 10/07/21 at 06:28; Stop 10/07/21 at 08:28; Status DC Glycopyrrolate (Robinul) 1 mg STK-MED ONCE .ROUTE ; Start 10/07/21 at 06:28; Stop 10/07/21 at 08:28; Status DC Dexamethasone Sodium Phosphate (Decadron) 4 mg STK-MED ONCE .ROUTE ; Start 10/07/21 at 06:28; Stop 10/07/21 at 08:29; Status DC Lidocaine HCl (Lidocaine Pf 2% Vial) 5 ml STK-MED ONCE .ROUTE ; Start 10/07/21 at 06:28; Stop 10/07/21 at 08:29; Status DC Ondansetron HCl (Zofran) 4 mg STK-MED ONCE .ROUTE ; Start 10/07/21 at 06:28; Stop 10/07/21 at 08:29; Status DC Phenylephrine HCl (PHENYLEPHRINE in 0.9% NACL PF) 1 mg STK-MED ONCE IV ; Start 10/07/21 at 06:28; Stop 10/07/21 at 08:29; Status DC Sugammadex Sodium (Bridion) 200 mg 1X ONCE IVP ; Start 10/07/21 at 08:45; Stop 10/07/21 at 08:46; Status DC Fentanyl Citrate (Fentanyl 2ml Vial) 100 mcg STK-MED ONCE .ROUTE ; Start 10/07/21 at 06:30; Stop 10/07/21 at 08:30; Status DC Succinylcholine Chloride (Anectine) 200 mg STK-MED ONCE .ROUTE ; Start 10/07/21 at 06:30; Stop 10/07/21 at 08:30; Status DC Rocuronium [place] (Zemuron) 50 mg STK-MED ONCE .ROUTE ; Start 10/07/21 at 06:30; Stop 10/07/21 at 08:30; Status DC Midazolam HCl (Versed) 2 mg STK-MED ONCE .ROUTE ; Start 10/07/21 at 06:30; Stop 10/07/21 at 08:31; Status DC Remifentanil HCl (Ultiva) 1 mg STK-MED ONCE IV ; Start 10/07/21 at 06:31; Stop 10/07/21 at 08:31; Status DC Sodium Chloride (SODIUM CHLORIDE 20ml) 20 ml STK-MED ONCE IJ ; Start 10/07/21 at 06:31; Stop 10/07/21 at 08:31; Status DC Propofol 50 ml @ As Directed STK-MED ONCE IV ; Start 10/07/21 at 06:50; Stop 10/07/21 at 08:50; Status DC Carbidopa/Levodopa (Sinemet 25/100) 1 tab DAILY08 PO Last administered on 10/12/21 08:33; Start 10/08/21 at 08:00 Carbidopa/Levodopa (Sinemet 25/100) 1.5 tab TID PO Last administered on 10/14/21at 08:34; Start 10/07/21 at 14:00 Insulin Human Lispro (HumaLOG) 5-10 UNITS home slid... PRN BFRMEAL PRN SQ diabetes control; Start 10/07/21 at 11:45; Status UNV Levothyroxine Sodium (Synthroid) 125 mcg DAILY06 PO Last administered on 10/14/21at 06:05; Start 10/08/21 at 06:00 Losartan Potassium (Cozaar) 50 mg DAILY PO Last administered on 10/14/21at 08:35; Start 10/07/21 at 10:00 Metoprolol Succinate (Toprol Xl) 25 mg DAILY PO Last administered on 10/12/21at 09:42; Start 10/08/21 at 09:00 Pioglitazone HCl (Actos) 15 mg DAILY PO Last administered on 10/14/21 08:33; Start 10/07/21 at 12:00 Polyethylene Glycol (miraLAX PACKET) 8.5 gm DAILY PO Last administered on 10/12/21 08:33; Start 10/07/21 at 12:00 Sennosides (Senna) 8.6 mg DAILY PO Last administered on 10/14/21 08:36; Start 10/07/21 at 12:00 Non-Formulary Medication (Alendronate Sodium ) 70 mg WEEKLY PO ; Start 10/14/21 at 09:00; Status UNV Bupropion HCl (Wellbutrin Xl) 300 mg DAILY PO Last administered on 10/14/21 08:38; Start 10/07/21 at 12:00 Calcium/Vitamin D (Oscal D 500mg/ 200uts) 1 tab DAILY PO Last administered on 10/12/21 08:32; Start 10/07/21 at 12:00 Gabapentin (Neurontin) 300 mg BIDACBL PO Last administered on 10/10/21 12:03; Start 10/07/21 at 11:30; Stop 10/10/21 at 13:42; Status DC Gabapentin (Neurontin) 600 mg HS PO Last administered on 10/09/21 22:01; Start 10/07/21 at 21:00; Stop 10/10/21 at 13:42; Status DC Insulin Glargine (Lantus Syringe) 15 unit QHS SQ Last administered on 10/13/21 21:43; Start 10/07/21 at 21:00 Cetirizine HCl (ZyrTEC) 10 mg PRN DAILY PRN PO ALLERGIES; Start 10/07/21 at 11:15 Ondansetron HCl (Zofran Odt) 8 mg PRN DAILY PRN PO NAUSEA/VOMITING Last administered on 10/12/21 10:04; Start 10/07/21 at 11:15; Stop 10/12/21 at 15:03; Status DC Ropinirole HCl (Requip) 0.5 mg BIDACBL PO Last administered on 10/14/21 06:04; Start 10/07/21 at 11:30 Atorvastatin Calcium (Lipitor) 80 mg HS PO Last administered on 10/13/21 20:25; Start 10/07/21 at 21:00 Non-Formulary Medication (Tegaserod Hydrogen Maleate (Zelnorm)) 6 mg BID PO ; Start 10/07/21 at 21:00; Stop 10/09/21 at 07:05; Status DC Non-Formulary Medication (Ubidecarenone (Coq10)) 200 mg DAILY PO ; Start 10/08/21 at 09:00; Status UNV Fentanyl Citrate (Fentanyl 2ml Vial) 50 mcg PRN Q2HR PRN IVP MODERATE TO SEVERE PAIN Last administered on 10/13/21at 08:45; Start 10/07/21 at 10:15 Vancomycin HCl 1 gm/Sodium Chloride 250 ml @ 250 mls/hr 1X ONCE IV Last administered on 10/07/21at 21:42; Start 10/07/21 at 21:00; Stop 10/07/21 at 21:59; Status DC Acetaminophen (Tylenol) 650 mg PRN Q6HRS PRN PO TEMP > 100.3'F Last administered on 10/14/21at 06:05; Start 10/07/21 at 10:15 Al Hydroxide/Mg Hydroxide (Mylanta Plus Xs) 30 ml PRN Q3HRS PRN PO HEARTBURN / GAS; Start 10/07/21 at 10:15 Calcium Carbonate/ Glycine (Tums) 500 mg PRN Q3HRS PRN PO INDIGESTION; Start 10/07/21 at 10:15 Diphenhydramine HCl (Benadryl) 25 mg PRN Q6HRS PRN PO ITCHING; Start 10/07/21 at 10:15 Naloxone HCl (Narcan) 0.1 mg PRN Q2MIN PRN IV SEE COMMENTS; Start 10/07/21 at 10:15 Sodium Chloride (Normal Saline Flush) 3 ml QSHIFT PRN IV AFTER MEDS AND BLOOD DRAWS; Start 10/07/21 at 10:15 Potassium Chloride/Sodium Chloride 1,000 ml @ 75 mls/hr [id number] IV Last administered on 10/07/21at 20:01; Start 10/07/21 at 10:15; Stop 10/09/21 at 06:04; Status DC Oxycodone/ Acetaminophen (Percocet 5/325) 1 tab PRN Q4HRS PRN PO MILD PAIN, 1ST CHOICE Last administered on 10/10/21at 09:26; Start 10/07/21 at 10:15; Stop 10/13/21 at 14:04; Status DC Oxycodone/ Acetaminophen (Percocet 5/325) 2 tab PRN Q4HRS PRN PO MODERATE PAIN, SEVERE PAIN Last administered on 10/12/21at 21:28; Start 10/07/21 at 10:15; Stop 10/13/21 at 14:04; Status DC Methocarbamol (Robaxin) 750 mg PRN TID PRN PO MUSCLE SPASMS Last administered on 10/10/21at 08:23; Start 10/07/21 at 10:15 Docusate Sodium (Colace) 100 mg BID PO Last administered on 10/14/21at 08:35; Start 10/07/21 at 12:00 Magnesium Hydroxide (Milk Of Magnesia) 2,400 mg PRN Q12HR PRN PO CONSTIPATION; Start 10/07/21 at 10:15; Stop 10/11/21 at 09:09; Status DC Dextrose (Dextrose 50%-Water Syringe) 12.5 gm PRN Q15MIN PRN IV SEE COMMENTS; Start 10/07/21 at 10:15 Dextrose (Iv Dextrose 5%) 250 ml PRN Q15MIN PRN IV SEE COMMENTS; Start 10/07/21 at 10:15 Ketamine HCl (Ketamine) 50 mg STK-MED ONCE .ROUTE ; Start 10/07/21 at 08:30; Stop 10/07/21 at 10:30; Status DC Lidocaine HCl (Lidocaine Pf 2% Vial) 5 ml STK-MED ONCE .ROUTE ; Start 10/07/21 at 08:31; Stop 10/07/21 at 10:32; Status DC Lidocaine HCl (Lidocaine Pf 2% Vial) 5 ml STK-MED ONCE .ROUTE ; Start 10/07/21 at 08:31; Stop 10/07/21 at 10:32; Status DC Sodium Chloride (SODIUM CHLORIDE 20ml) 20 ml STK-MED ONCE IJ ; Start 10/07/21 at 08:31; Stop 10/07/21 at 10:32; Status DC Sodium Chloride (SODIUM CHLORIDE 20ml) 20 ml STK-MED ONCE IJ ; Start 10/07/21 at 08:34; Stop 10/07/21 at 10:34; Status DC Remifentanil HCl (Ultiva) 1 mg STK-MED ONCE IV ; Start 10/07/21 at 08:48; Stop 10/07/21 at 10:48; Status DC Sodium Chloride (SODIUM CHLORIDE 20ml) 20 ml STK-MED ONCE IJ ; Start 10/07/21 at 08:48; Stop 10/07/21 at 10:49; Status DC Sevoflurane (Ultane) 90 ml STK-MED ONCE IH ; Start 10/07/21 at 09:34; Stop 10/07/21 at 11:34; Status DC Ketamine HCl (Ketamine) 50 mg STK-MED ONCE .ROUTE ; Start 10/07/21 at 10:05; Stop 10/07/21 at 12:06; Status DC Lidocaine HCl (Lidocaine Pf 2% Vial) 5 ml STK-MED ONCE .ROUTE ; Start 10/07/21 at 10:06; Stop 10/07/21 at 12:06; Status DC Lidocaine HCl (Lidocaine Pf 2% Vial) 5 ml STK-MED ONCE .ROUTE ; Start 10/07/21 at 10:06; Stop 10/07/21 at 12:06; Status DC Sodium Chloride (SODIUM CHLORIDE 20ml) 20 ml STK-MED ONCE IJ ; Start 10/07/21 at 10:06; Stop 10/07/21 at 12:06; Status DC Sodium Chloride (SODIUM CHLORIDE 20ml) 20 ml STK-MED ONCE IJ ; Start 10/07/21 at 10:06; Stop 10/07/21 at 12:06; Status DC Remifentanil HCl (Ultiva) 1 mg STK-MED ONCE IV ; Start 10/07/21 at 10:42; Stop 10/07/21 at 12:42; Status DC Sodium Chloride (SODIUM CHLORIDE 20ml) 20 ml STK-MED ONCE IJ ; Start 10/07/21 at 10:42; Stop 10/07/21 at 12:42; Status DC Phenylephrine HCl ([place]-Synephrine Inj) 10 mg STK-MED ONCE .ROUTE ; Start 10/07/21 at 11:00; Stop 10/07/21 at 13:01; Status DC Cefazolin Sodium (Ancef) 1 gm STK-MED ONCE IVP ; Start 10/07/21 at 11:29; Stop 10/07/21 at 13:30; Status DC Gelatin (Gelfoam Size 100) 1 each STK-MED ONCE .ROUTE Last administered on 10/07/21at 14:14; Start 10/07/21 at 14:12; Stop 10/07/21 at 14:13; Status DC Thrombin 20,000 unit STK-MED ONCE TP Last administered on 10/07/21at 14:14; Start 10/07/21 at 14:12; Stop 10/07/21 at 14:13; Status DC Fentanyl Citrate (Fentanyl 2ml Vial) 100 mcg STK-MED ONCE .ROUTE ; Start at 12:17; Stop 10/07/21 at 14:17; Status DC Fentanyl Citrate (Fentanyl 2ml Vial) 100 mcg STK-MED ONCE .ROUTE ; Start 2 at 15:20; Stop 10/07/21 at 15:20; Status DC Insulin Human Lispro (HumaLOG) 0-9 UNITS TIDWMEALS SQ Last administered on 10/14/21at 08:57; Start 10/07/21 at 17:00 Dextrose (Dextrose 50%-Water Syringe) 12.5 gm PRN Q15MIN PRN IV SEE COMMENTS; Start 10/07/21 at 16:30; Status UNV Dextrose (Iv Dextrose 5%) 250 ml PRN Q15MIN PRN IV SEE COMMENTS; Start 10/07/21 at 16:30; Status UNV Sennosides (Senna) 17.2 mg PRN BID PRN PO CONSTIPATION, 1ST CHOICE; Start 10/08/21 at 11:30 Methylprednisolone (Medrol) 8 mg BID PO Last administered on 10/08/21at 21:59; Start 10/08/21 at 12:00; Stop 10/08/21 at 21:01; Status DC Methylprednisolone (Medrol) 4 mg BIDPCLD PO Last administered on 10/08/21at 18:23; Start 10/08/21 at 13:30; Stop 10/08/21 at 17:31; Status DC Methylprednisolone (Medrol) 4 mg TIDPC PO Last administered on 10/09/21at 17:10; Start 10/09/21 at 08:30; Stop 10/09/21 at 17:31; Status DC Methylprednisolone (Medrol) 8 mg QHS PO Last administered on 10/09/21at 22:00; Start 10/09/21 at 21:00; Stop 10/09/21 at 21:01; Status DC Methylprednisolone (Medrol) 4 mg QIDAFTMEAL PO Last administered on 10/10/21at 21:18; Start 10/10/21 at 09:00; Stop 10/10/21 at 21:01; Status DC Methylprednisolone (Medrol) 4 mg TID PO Last administered on 10/11/21at 21:05; Start 10/11/21 at 09:00; Stop 10/11/21 at 21:01; Status DC Methylprednisolone (Medrol) 4 mg BID PO Last administered on 10/12/21at 21:27; Start 10/12/21 at 09:00; Stop 10/12/21 at 21:01; Status DC Methylprednisolone (Medrol) 4 mg DAILY PO ; Start 10/13/21 at 09:00; Stop 10/13/21 at 09:01; Status DC Tramadol HCl (Ultram) 50 mg PRN Q6HRS PRN PO MILD PAIN 1-3 Last administered on 10/09/21at 14:49; Start 10/09/21 at 13:30 Gabapentin (Neurontin) 600 mg TID PO Last administered on 10/14/21 08:33; Start 10/10/21 at 14:00 Bisacodyl (Dulcolax Tab) 10 mg DAILY PO Last administered on 10/12/21 08:32; Start 10/10/21 at 15:00 Magnesium Hydroxide (Milk Of Magnesia) 2,400 mg PRN DAILY PRN PO CONSTIPATION, 2ND CHOICE; Start 10/10/21 at 14:45 Tramadol HCl (Ultram) 100 mg PRN Q6HRS PRN PO MODERATE PAIN, 1ST CHOICE Last administered on 10/14/21at 06:05; Start 10/11/21 at 09:15 Ondansetron HCl (Zofran) 4 mg PRN Q4HRS PRN IVP NAUSEA/VOMITING Last administered on 10/13/21 06:08; Start 10/12/21 at 15:15 Potassium Chloride/Sodium Chloride 1,000 ml @ 75 mls/hr [id number] IV Last administered on 10/13/21 06:05; Start 10/12/21 at 17:15 Fentanyl (Duragesic 12mcg/ Hr Patch) 1 patch Q3DAYS TD Last administered on 10/13/21at 16:04; Start 10/13/21 at 14:30 Methylprednisolone (Medrol) 8 mg BID PO Last administered on 10/13/21at 20:26; Start 10/13/21 at 09:00; Stop 10/13/21 at 21:01; Status DC Methylprednisolone (Medrol) 4 mg BIDPCLD PO Last administered on 10/13/21at 18:36; Start 10/13/21 at 12:30; Stop 10/13/21 at 17:31; Status DC Methylprednisolone (Medrol) 4 mg TIDPC PO Last administered on 10/14/21at 08:34; Start 10/14/21 at 08:30; Stop 10/14/21 at 17:31 Methylprednisolone (Medrol) 8 mg QHS PO ; Start 10/14/21 at 21:00; Stop 10/14/21 at 21:01 Methylprednisolone (Medrol) 4 mg QIDAFTMEAL PO ; Start 10/15/21 at 09:00; Stop 10/15/21 at 21:01 Methylprednisolone (Medrol) 4 mg TID PO ; Start 10/16/21 at 09:00; Stop 10/16/21 at 21:01 Methylprednisolone (Medrol) 4 mg BID PO ; Start 10/17/21 at 09:00; Stop 10/17/21 at 21:01 Methylprednisolone (Medrol) 4 mg DAILY PO ; Start 10/18/21 at 09:00; Stop 10/18/21 at 09:01 Active Scripts Active Reported Crestor (Rosuvastatin Calcium) 5 Mg Tablet 20 Mg PO HS Losartan Potassium 50 Mg Tablet 50 Mg PO DAILY Actos (Pioglitazone Hcl) 15 Mg Tablet 15 Mg PO DAILY Tresiba (Insulin Degludec) 100 Unit/1 Ml Vial 15 Unit SQ HS Humalog (Insulin Lispro) 100 Unit/1 Ml Vial 5-10 Unit SQ PRN BFRMEAL PRN Calcium 500+D Tablet Chew (Calcium Carbonate/Vitamin D3) 1 Each Tab.chew 1 Each PO DAILY Coq10 (Ubidecarenone) 50 Mg Tab.chew 200 Mg PO DAILY Ondansetron Odt (Ondansetron) 8 Mg Tab.rapdis 8 Mg PO DAILY PRN Miralax (Polyethylene Glycol 3350) 17 Gm Powd.pack 0.5 Pkt PO DAILY Senna Laxative (Sennosides) 8.6 Mg Tablet 8.6 Mg PO DAILY Claritin (Loratadine) 10 Mg Capsule 10 Mg PO DAILY PRN Zelnorm (Tegaserod Hydrogen Maleate) 6 Mg Tablet 6 Mg PO BID Alendronate Sodium 70 Mg Tablet 70 Mg PO WEEKLY Wellbutrin Xl (Bupropion Hcl) 300 Mg Tab.er.24h 300 Mg PO DAILY Gabapentin 600 Mg Tablet 600 Mg PO HS Gabapentin 600 Mg Tablet 300 Mg PO BIDACBL Metoprolol Succinate ( Xl ) (Metoprolol Succinate) 25 Mg Tab.er.24h 25 Mg PO DAILY Ropinirole Hcl 0.5 Mg Tablet 0.5 Mg PO BIDACBL Sinemet 25-100 Mg Tablet (Carbidopa/Levodopa) 1 Each Tablet 1.5 Tab PO TID Sinemet 25-100 Mg Tablet (Carbidopa/Levodopa) 1 Each Tablet 1 Tab PO DAILY08 Levothyroxine Sodium 125 Mcg Tablet 125 Mcg PO DAILYAC Vitals/I & O Vital Sign - Last 24 Hours 10/13/21 10/13/21 10/13/21 10/13/21 10:27 10:57 11:00 15:00 Temp 98.2 98.3 98.2 98.3 Pulse 80 83 Resp 18 18 B/P (MAP) 147/74 (98) 139/56 (83) Pulse Ox 98 98 O2 Delivery Room Air Room Air Room Air Room Air 10/13/21 10/13/21 10/13/21 10/13/21 16:04 18:36 19:00 19:06 Temp 97.6 97.6 Pulse 90 Resp 14 B/P (MAP) 123/57 (79) Pulse Ox 98 O2 Delivery Room Air Room Air Room Air Room Air 10/13/21 10/13/21 10/13/21 10/14/21 20:00 20:04 23:00 06:05 Temp 97.8 97.8 Pulse 86 Resp 16 B/P (MAP) 139/58 (85) Pulse Ox 98 97 97 O2 Delivery Room Air Room Air Room Air Room Air O2 Flow Rate 3.0 3.0 10/14/21 10/14/21 10/14/21 06:35 08:00 08:35 Pulse 84 Resp 16 B/P (MAP) 125/50 Pulse Ox 97 O2 Delivery Room Air Room Air Intake and Output 10/13/21 10/13/21 10/14/21 15:00 23:00 07:00 Intake Total 150 ml Balance 150 ml Justifications for Admission Other Justification EMELYN RODRIGUEZ MD Oct 14, 2021 10:03
--- NOTE | 2021-10-14 10:15 | SNU/HH DC ---
DISCHARGE ORDERS DISCHARGE INFORMATION: DISCHARGE DATE: Oct 14, 2021 FINAL DIAGNOSIS lumbar stenosis CONDITION ON DISCHARGE: Stable CODE STATUS: Code Status: Full HOSPICE: HOSPICE: No HOSPICE EVAL & TREAT: No POST DISCHARGE ORDERS: ACTIVITY ORDERS: Activity as tolerated, Avoid exertion, Progressive ambulation, Other, see below (brace on when up) BATHING ORDERS: Shower-keep dressing dry, No Tub Bath until see DIET AFTER DISCHARGE: ELIZABETH WOUND/INCISION CARE: Ice to area for comfort OTHER WOUND INSTRUCTIONS: dressing change daily as needed FOLLOW-UP: PHYSICIAN FOLLOW-UP: Dr. Campoverde in 2 weeks [phone] TREATMENT/EQUIPMENT ORDERS: ADAPTIVE EQUIPMENT NEEDED: Front wheeled walker, Wheelchair Physical Therapy For: Evalulation/Treatment DISCHARGE MEDICATIONS: Home Meds Reported Medications Rosuvastatin Calcium (CRESTOR) 5 Mg Tablet, 20 MG PO HS for FOR CHOLESTEROL, #30 TAB 0 Refills 10/07/21 Losartan Potassium (LOSARTAN POTASSIUM) 50 Mg Tablet, 50 MG PO DAILY for HYPERTENSION, TAB 09/28/21 Pioglitazone Hcl (ACTOS) 15 Mg Tablet, 15 MG PO DAILY for control diabetes, TAB 09/28/21 Insulin Degludec (Tresiba) 100 Unit/1 Ml Vial, 15 UNIT SQ HS for control diabetes, EACH 09/28/21 Insulin Lispro (HUMALOG) 100 Unit/1 Ml Vial, 5-10 UNIT SQ PRN BFRMEAL PRN for diabetes control, EACH 09/28/21 Calcium Carbonate/Vitamin D3 (Calcium 500+D Tablet Chew) 1 Each Tab.chew, 1 EACH PO DAILY for supplement, TAB.CHEW 09/28/21 Ubidecarenone (COQ10) 50 Mg Tab.chew, 200 MG PO DAILY for supplement, TAB.CHEW 09/28/21 Ondansetron (ONDANSETRON ODT) 8 Mg Tab.rapdis, 8 MG PO DAILY PRN for NAUSEA/VOMITING, TAB 09/28/21 Polyethylene Glycol 3350 (MIRALAX) 17 Gm Powd.pack, 0.5 PKT PO DAILY for prevent constipation, PKT 09/28/21 Sennosides (SENNA LAXATIVE) 8.6 Mg Tablet, 8.6 MG PO DAILY for prevent constipation, TAB 09/28/21 Loratadine (CLARITIN) 10 Mg Capsule, 10 MG PO DAILY PRN for control allergies, CAP 09/28/21 Tegaserod Hydrogen Maleate (Zelnorm) 6 Mg Tablet, 6 MG PO BID for irritable, TAB 09/28/21 Alendronate Sodium (ALENDRONATE SODIUM) 70 Mg Tablet, 70 MG PO WEEKLY for treat osteoporosis, TAB 09/28/21 Bupropion Hcl (WELLBUTRIN XL) 300 Mg Tab.er.24h, 300 MG PO DAILY for antidepressant, TAB.SR 09/28/21 Gabapentin (GABAPENTIN) 600 Mg Tablet, 600 MG PO HS for NEUROGENIC PAIN, TAB 09/28/21 Gabapentin (GABAPENTIN) 600 Mg Tablet, 300 MG PO BIDACBL for NEUROGENIC PAIN, TAB 09/28/21 Metoprolol Succinate (METOPROLOL SUCCINATE ( XL )) 25 Mg Tab.er.24h, 25 MG PO DAILY for FOR HYPERTENSION, #30 TAB 0 Refills 09/28/21 Ropinirole Hcl (ROPINIROLE HCL) 0.5 Mg Tablet, 0.5 MG PO BIDACBL for parkinsons, TAB 09/28/21 Carbidopa/Levodopa (SINEMET 25-100 MG TABLET) 1 Each Tablet, 1.5 TAB PO TID for parkinsons, TAB 09/28/21 Carbidopa/Levodopa (SINEMET 25-100 MG TABLET) 1 Each Tablet, 1 TAB PO DAILY08 for parkinsons, TAB 09/28/21 Levothyroxine Sodium (LEVOTHYROXINE SODIUM) 125 Mcg Tablet, 125 MCG PO DAILYAC for THYROID SUPPLEMENT, #30 TAB 0 Refills 09/28/21 Discontinued Reported Medications Meloxicam (MOBIC) 15 Mg Tablet, 15 MG PO DAILY for antiinflammatory, TAB 09/28/21 Pravastatin Sodium (PRAVASTATIN SODIUM) 40 Mg Tablet, 40 MG PO DAILY for hyperlipidemia, TAB 09/28/21 HANY CAMPOVERDE MD Oct 14, 2021 10:14
[2021-10-14] MEDS ORDERED: ONDANSETRON ODT 4 MG TAB.RAPDIS. PO PRN (10:45)
[2021-10-14 11:00] VITALS: BP 122/74
[2021-10-14 15:00] VITALS: BP 106/41
--- NOTE | 2021-10-14 15:51 | PDOC ---
PROGRESS NOTES Date of Service DATE: 10/14/21 TIME: 15:49 Subjective Subjective patient seen at 0930 POD #7 S/P laminectomy L3-4 and fusion L3-5 pain improved currently but still intermittent left hip and lower leg pain Objective Objective Vital Signs Date Time Temp Pulse Resp B/P (MAP) Pulse Ox O2 Delivery O2 Flow Rate FiO2 10/14/21 15:00 98.0 87 18 106/41 (62) 98 Room Air 98.0 10/14/21 06:05 3.0 Intake and Output 10/14/21 07:00 Intake Total 150 ml Balance 150 ml Intake Oral 150 ml # Voids 4 Physical Exam General: Alert, Oriented X3, Cooperative, No acute distress MUSCULOSKELETAL: Other (HERRERA) Skin: Other (dressing changed, dry) Plan Plan of Care pain better controlled with fentanyl patch and medrol dose pack plan for transfer to rehab today f/u 2 weeks D/W RN Comment Review of Relevant I have reviewed the following items ene (where applicable) has been applied. Labs Laboratory Tests Test 10/12/21 16:47 10/12/21 20:51 10/13/21 08:14 10/13/21 10:52 Glucose (Fingerstick) 134 mg/dL (70-99) 131 mg/dL (70-99) 161 mg/dL (70-99) 127 mg/dL (70-99) Test 10/13/21 16:16 10/13/21 21:33 10/14/21 08:32 10/14/21 12:20 Glucose (Fingerstick) 119 mg/dL (70-99) 342 mg/dL (70-99) 249 mg/dL (70-99) 256 mg/dL (70-99) Laboratory Tests Test 10/13/21 16:16 10/13/21 21:33 10/14/21 08:32 10/14/21 12:20 Glucose (Fingerstick) 119 mg/dL (70-99) 342 mg/dL (70-99) 249 mg/dL (70-99) 256 mg/dL (70-99) Medications Current Medications Cefazolin Sodium 1 gm/Sodium Chloride 1,000 ml @ 1,000 mls/hr 1X ONCE IRR Last administered on 09/29/21at 13:00; Start 09/29/21 at 06:00; Stop 09/29/21 at 06:59; Status DC Fentanyl Citrate (Fentanyl 2ml Vial) 25 mcg PRN Q5MIN PRN IVP MILD PAIN 1-3; Start 09/29/21 at 06:00; Stop 09/30/21 at 05:59; Status DC Fentanyl Citrate (Fentanyl 2ml Vial) 50 mcg PRN Q5MIN PRN IVP MODERATE PAIN 4- 6; Start 09/29/21 at 06:00; Stop 09/30/21 at 05:59; Status DC Morphine Sulfate (Morphine Sulfate) 1 mg PRN Q10MIN PRN IVP SEVERE PAIN 7-10; Start 09/29/21 at 06:00; Stop 09/30/21 at 05:59; Status DC Ringer's Solution 1,000 ml @ 30 mls/hr Q24H IV ; Start 09/29/21 at 06:00; Stop 09/29/21 at 17:59; Status DC Hydromorphone HCl (Dilaudid) 0.5 mg PRN Q10MIN PRN IVP SEVERE PAIN 7-10, 2nd CHOICE; Start 09/29/21 at 06:00; Stop 09/30/21 at 05:59; Status DC Prochlorperazine Edisylate (Compazine) 5 mg PACU PRN PRN IVP NAUSEA, MRX1; Start 09/29/21 at 06:00; Stop 09/30/21 at 05:59; Status DC Cefazolin Sodium/ Dextrose 50 ml @ 100 mls/hr 1X PREOP PRN IV PRIOR TO PROCEDURE; Start 09/29/21 at 06:00; Stop 09/29/21 at 18:00; Status DC Cefazolin Sodium 1 gm/Sodium Chloride 1,000 ml @ 1,000 mls/hr 1X ONCE IRR Last administered on 10/07/21at 10:25; Start 10/06/21 at 14:00; Stop 10/06/21 at 14:59; Status DC Fentanyl Citrate (Fentanyl 2ml Vial) 25 mcg PRN Q5MIN PRN IVP MILD PAIN 1-3; Start 10/07/21 at 06:00; Stop 10/07/21 at 16:43; Status DC Fentanyl Citrate (Fentanyl 2ml Vial) 50 mcg PRN Q5MIN PRN IVP MODERATE PAIN 4-6 Last administered on 10/07/21at 15:30; Start 10/07/21 at 06:00; Stop 10/07/21 at 16:43; Status DC Morphine Sulfate (Morphine Sulfate) 1 mg PRN Q10MIN PRN IVP SEVERE PAIN 7-10; Start 10/07/21 at 06:00; Stop 10/07/21 at 16:48; Status DC Ringer's Solution 1,000 ml @ 30 mls/hr Q24H IV Last administered on 10/07/21at 07:37; Start 10/07/21 at 06:00; Stop 10/07/21 at 17:59; Status DC Hydromorphone HCl (Dilaudid) 0.5 mg PRN Q10MIN PRN IVP SEVERE PAIN 7-10, 2nd CHOICE; Start 10/07/21 at 06:00; Stop 10/07/21 at 16:43; Status DC Prochlorperazine Edisylate (Compazine) 5 mg PACU PRN PRN IVP NAUSEA, MRX1 Last administered on 10/07/21at 15:34; Start 10/07/21 at 06:00; Stop 10/07/21 at 16:43; Status DC Cefazolin Sodium/ Dextrose 50 ml @ 100 mls/hr 1X PREOP PRN IV PRIOR TO PROCEDURE Last administered on 10/07/21at 09:00; Start 10/07/21 at 06:00; Stop 10/07/21 at 16:41; Status DC Gelatin (Gelfoam Size 100) 1 each STK-MED ONCE .ROUTE Last administered on 10/07/21 10:25; Start 10/07/21 at 06:35; Stop 10/07/21 at 06:35; Status DC Bupivacaine HCl/ Epinephrine Bitart (Sensorcain-Epi 0.5% Kit) 30 ml STK-MED ONCE .ROUTE Last administered on 10/07/21 10:25; Start 10/07/21 at 06:35; Stop 10/07/21 at 06:35; Status DC Ketorolac Tromethamine (Toradol Im) 60 mg STK-MED ONCE .ROUTE Last administered on 10/07/21 10:25; Start 10/07/21 at 06:35; Stop 10/07/21 at 06:35; Status DC Thrombin 20,000 unit STK-MED ONCE TP Last administered on 2/25/22at 10:25; Start 10/07/21 at 06:35; Stop 10/07/21 at 06:35; Status DC Vancomycin HCl 1 gm/Sodium Chloride 250 ml @ 250 mls/hr PREOP PRN PRN IV PRIOR TO PROCEDURE Last administered on 10/07/21at 09:20; Start 10/08/21 at 06:00; Stop 10/07/21 at 16:47; Status DC Insulin Human Lispro (HumaLOG VIAL for OP,RR ONLY) 0-10 units PRN Q1HR PRN SQ PER PROTOCOL Last administered on 10/07/21at 15:07; Start 10/07/21 at 07:45; Stop 10/07/21 at 16:43; Status DC Propofol (Diprivan) 200 mg STK-MED ONCE IV ; Start 10/07/21 at 06:28; Stop 10/07/21 at 08:28; Status DC Glycopyrrolate (Robinul) 1 mg STK-MED ONCE .ROUTE ; Start 10/07/21 at 06:28; Stop 10/07/21 at 08:28; Status DC Dexamethasone Sodium Phosphate (Decadron) 4 mg STK-MED ONCE .ROUTE ; Start 10/07/21 at 06:28; Stop 10/07/21 at 08:29; Status DC Lidocaine HCl (Lidocaine Pf 2% Vial) 5 ml STK-MED ONCE .ROUTE ; Start 10/07/21 at 06:28; Stop 10/07/21 at 08:29; Status DC Ondansetron HCl (Zofran) 4 mg STK-MED ONCE .ROUTE ; Start 10/07/21 at 06:28; Stop 10/07/21 at 08:29; Status DC Phenylephrine HCl (PHENYLEPHRINE in 0.9% NACL PF) 1 mg STK-MED ONCE IV ; Start 10/07/21 at 06:28; Stop 10/07/21 at 08:29; Status DC Sugammadex Sodium (Bridion) 200 mg 1X ONCE IVP ; Start 10/07/21 at 08:45; Stop 10/07/21 at 08:46; Status DC Fentanyl Citrate (Fentanyl 2ml Vial) 100 mcg STK-MED ONCE .ROUTE ; Start 10/07/21 at 06:30; Stop 10/07/21 at 08:30; Status DC Succinylcholine Chloride (Anectine) 200 mg STK-MED ONCE .ROUTE ; Start 10/07/21 at 06:30; Stop 10/07/21 at 08:30; Status DC Rocuronium [place] (Zemuron) 50 mg STK-MED ONCE .ROUTE ; Start 10/07/21 at 06:30; Stop 10/07/21 at 08:30; Status DC Midazolam HCl (Versed) 2 mg STK-MED ONCE .ROUTE ; Start 10/07/21 at 06:30; Stop 10/07/21 at 08:31; Status DC Remifentanil HCl (Ultiva) 1 mg STK-MED ONCE IV ; Start 10/07/21 at 06:31; Stop 10/07/21 at 08:31; Status DC Sodium Chloride (SODIUM CHLORIDE 20ml) 20 ml STK-MED ONCE IJ ; Start 10/07/21 at 06:31; Stop 10/07/21 at 08:31; Status DC Propofol 50 ml @ As Directed STK-MED ONCE IV ; Start 10/07/21 at 06:50; Stop 10/07/21 at 08:50; Status DC Carbidopa/Levodopa (Sinemet 25/100) 1 tab DAILY08 PO Last administered on 10/12/21at 08:33; Start 10/08/21 at 08:00 Carbidopa/Levodopa (Sinemet 25/100) 1.5 tab TID PO Last administered on 10/14/21at 13:13; Start 10/07/21 at 14:00 Insulin Human Lispro (HumaLOG) 5-10 UNITS home slid... PRN BFRMEAL PRN SQ diabetes control; Start 10/07/21 at 11:45; Status UNV Levothyroxine Sodium (Synthroid) 125 mcg DAILY06 PO Last administered on 10/14/21 06:05; Start 10/08/21 at 06:00 Losartan Potassium (Cozaar) 50 mg DAILY PO Last administered on 10/14/21at 08:35; Start 10/07/21 at 10:00 Metoprolol Succinate (Toprol Xl) 25 mg DAILY PO Last administered on 10/12/21at 09:42; Start 10/08/21 at 09:00 Pioglitazone HCl (Actos) 15 mg DAILY PO Last administered on 10/14/21at 08:33; Start 10/07/21 at 12:00 Polyethylene Glycol (miraLAX PACKET) 8.5 gm DAILY PO Last administered on 10/12/21 08:33; Start 10/07/21 at 12:00 Sennosides (Senna) 8.6 mg DAILY PO Last administered on 10/14/21 08:36; Start 10/07/21 at 12:00 Non-Formulary Medication (Alendronate Sodium ) 70 mg WEEKLY PO ; Start 10/14/21 at 09:00; Status UNV Bupropion HCl (Wellbutrin Xl) 300 mg DAILY PO Last administered on 10/14/21 08:38; Start 10/07/21 at 12:00 Calcium/Vitamin D (Oscal D 500mg/ 200uts) 1 tab DAILY PO Last administered on 10/12/21 08:32; Start 10/07/21 at 12:00 Gabapentin (Neurontin) 300 mg BIDACBL PO Last administered on 10/10/21 12:03; Start 10/07/21 at 11:30; Stop 10/10/21 at 13:42; Status DC Gabapentin (Neurontin) 600 mg HS PO Last administered on 10/09/21 22:01; Start 10/07/21 at 21:00; Stop 10/10/21 at 13:42; Status DC Insulin Glargine (Lantus Syringe) 15 unit QHS SQ Last administered on 10/13/21 21:43; Start 10/07/21 at 21:00 Cetirizine HCl (ZyrTEC) 10 mg PRN DAILY PRN PO ALLERGIES; Start 10/07/21 at 11:15 Ondansetron HCl (Zofran Odt) 8 mg PRN DAILY PRN PO NAUSEA/VOMITING Last administered on 10/12/21 10:04; Start 10/07/21 at 11:15; Stop 10/12/21 at 15:03; Status DC Ropinirole HCl (Requip) 0.5 mg BIDACBL PO Last administered on 10/14/21 06:04; Start 10/07/21 at 11:30 Atorvastatin Calcium (Lipitor) 80 mg HS PO Last administered on 10/13/21 20:25; Start 10/07/21 at 21:00 Non-Formulary Medication (Tegaserod Hydrogen Maleate (Zelnorm)) 6 mg BID PO ; Start 10/07/21 at 21:00; Stop 10/09/21 at 07:05; Status DC Non-Formulary Medication (Ubidecarenone (Coq10)) 200 mg DAILY PO ; Start 10/08/21 at 09:00; Status UNV Fentanyl Citrate (Fentanyl 2ml Vial) 50 mcg PRN Q2HR PRN IVP MODERATE TO SEVERE PAIN Last administered on 10/13/21at 08:45; Start 10/07/21 at 10:15 Vancomycin HCl 1 gm/Sodium Chloride 250 ml @ 250 mls/hr 1X ONCE IV Last administered on 10/07/21at 21:42; Start 10/07/21 at 21:00; Stop 10/07/21 at 21:59; Status DC Acetaminophen (Tylenol) 650 mg PRN Q6HRS PRN PO TEMP > 100.3'F Last administered on 10/14/21at 12:00; Start 10/07/21 at 10:15 Al Hydroxide/Mg Hydroxide (Mylanta Plus Xs) 30 ml PRN Q3HRS PRN PO HEARTBURN / GAS; Start 10/07/21 at 10:15 Calcium Carbonate/ Glycine (Tums) 500 mg PRN Q3HRS PRN PO INDIGESTION; Start 10/07/21 at 10:15 Diphenhydramine HCl (Benadryl) 25 mg PRN Q6HRS PRN PO ITCHING; Start 10/07/21 at 10:15 Naloxone HCl (Narcan) 0.1 mg PRN Q2MIN PRN IV SEE COMMENTS; Start 10/07/21 at 10:15 Sodium Chloride (Normal Saline Flush) 3 ml QSHIFT PRN IV AFTER MEDS AND BLOOD DRAWS; Start 10/07/21 at 10:15 Potassium Chloride/Sodium Chloride 1,000 ml @ 75 mls/hr [id number] IV Last administered on 10/07/21at 20:01; Start 10/07/21 at 10:15; Stop 10/09/21 at 06:04; Status DC Oxycodone/ Acetaminophen (Percocet 5/325) 1 tab PRN Q4HRS PRN PO MILD PAIN, 1ST CHOICE Last administered on 10/10/21at 09:26; Start 10/07/21 at 10:15; Stop 10/13/21 at 14:04; Status DC Oxycodone/ Acetaminophen (Percocet 5/325) 2 tab PRN Q4HRS PRN PO MODERATE PAIN, SEVERE PAIN Last administered on 10/12/21at 21:28; Start 10/07/21 at 10:15; Stop 10/13/21 at 14:04; Status DC Methocarbamol (Robaxin) 750 mg PRN TID PRN PO MUSCLE SPASMS Last administered on 10/10/21at 08:23; Start 10/07/21 at 10:15 Docusate Sodium (Colace) 100 mg BID PO Last administered on 10/14/21at 08:35; Start 10/07/21 at 12:00 Magnesium Hydroxide (Milk Of Magnesia) 2,400 mg PRN Q12HR PRN PO CONSTIPATION; Start 10/07/21 at 10:15; Stop 10/11/21 at 09:09; Status DC Dextrose (Dextrose 50%-Water Syringe) 12.5 gm PRN Q15MIN PRN IV SEE COMMENTS; Start 10/07/21 at 10:15 Dextrose (Iv Dextrose 5%) 250 ml PRN Q15MIN PRN IV SEE COMMENTS; Start 10/07/21 at 10:15 Ketamine HCl (Ketamine) 50 mg STK-MED ONCE .ROUTE ; Start 10/07/21 at 08:30; Stop 10/07/21 at 10:30; Status DC Lidocaine HCl (Lidocaine Pf 2% Vial) 5 ml STK-MED ONCE .ROUTE ; Start 10/07/21 at 08:31; Stop 10/07/21 at 10:32; Status DC Lidocaine HCl (Lidocaine Pf 2% Vial) 5 ml STK-MED ONCE .ROUTE ; Start 10/07/21 at 08:31; Stop 10/07/21 at 10:32; Status DC Sodium Chloride (SODIUM CHLORIDE 20ml) 20 ml STK-MED ONCE IJ ; Start 10/07/21 at 08:31; Stop 10/07/21 at 10:32; Status DC Sodium Chloride (SODIUM CHLORIDE 20ml) 20 ml STK-MED ONCE IJ ; Start 10/07/21 at 08:34; Stop 10/07/21 at 10:34; Status DC Remifentanil HCl (Ultiva) 1 mg STK-MED ONCE IV ; Start 10/07/21 at 08:48; Stop 10/07/21 at 10:48; Status DC Sodium Chloride (SODIUM CHLORIDE 20ml) 20 ml STK-MED ONCE IJ ; Start 10/07/21 at 08:48; Stop 10/07/21 at 10:49; Status DC Sevoflurane (Ultane) 90 ml STK-MED ONCE IH ; Start 10/07/21 at 09:34; Stop 10/07/21 at 11:34; Status DC Ketamine HCl (Ketamine) 50 mg STK-MED ONCE .ROUTE ; Start 10/07/21 at 10:05; Stop 10/07/21 at 12:06; Status DC Lidocaine HCl (Lidocaine Pf 2% Vial) 5 ml STK-MED ONCE .ROUTE ; Start 10/07/21 at 10:06; Stop 10/07/21 at 12:06; Status DC Lidocaine HCl (Lidocaine Pf 2% Vial) 5 ml STK-MED ONCE .ROUTE ; Start 10/07/21 at 10:06; Stop 10/07/21 at 12:06; Status DC Sodium Chloride (SODIUM CHLORIDE 20ml) 20 ml STK-MED ONCE IJ ; Start 10/07/21 at 10:06; Stop 10/07/21 at 12:06; Status DC Sodium Chloride (SODIUM CHLORIDE 20ml) 20 ml STK-MED ONCE IJ ; Start 10/07/21 at 10:06; Stop 10/07/21 at 12:06; Status DC Remifentanil HCl (Ultiva) 1 mg STK-MED ONCE IV ; Start 10/07/21 at 10:42; Stop 10/07/21 at 12:42; Status DC Sodium Chloride (SODIUM CHLORIDE 20ml) 20 ml STK-MED ONCE IJ ; Start 10/07/21 at 10:42; Stop 10/07/21 at 12:42; Status DC Phenylephrine HCl ([place]-Synephrine Inj) 10 mg STK-MED ONCE .ROUTE ; Start 10/07/21 at 11:00; Stop 10/07/21 at 13:01; Status DC Cefazolin Sodium (Ancef) 1 gm STK-MED ONCE IVP ; Start 10/07/21 at 11:29; Stop 10/07/21 at 13:30; Status DC Gelatin (Gelfoam Size 100) 1 each STK-MED ONCE .ROUTE Last administered on 10/07/21at 14:14; Start 10/07/21 at 14:12; Stop 10/07/21 at 14:13; Status DC Thrombin 20,000 unit STK-MED ONCE TP Last administered on 10/07/21at 14:14; Start 10/07/21 at 14:12; Stop 10/07/21 at 14:13; Status DC Fentanyl Citrate (Fentanyl 2ml Vial) 100 mcg STK-MED ONCE .ROUTE ; Start 10/07/21 at 12:17; Stop 10/07/21 at 14:17; Status DC Fentanyl Citrate (Fentanyl 2ml Vial) 100 mcg STK-MED ONCE .ROUTE ; Start 10/07/21 at 15:20; Stop 10/07/21 at 15:20; Status DC Insulin Human Lispro (HumaLOG) 0-9 UNITS TIDWMEALS SQ Last administered on 10/14/21at 13:17; Start 10/07/21 at 17:00 Dextrose (Dextrose 50%-Water Syringe) 12.5 gm PRN Q15MIN PRN IV SEE COMMENTS; Start 10/07/21 at 16:30; Status UNV Dextrose (Iv Dextrose 5%) 250 ml PRN Q15MIN PRN IV SEE COMMENTS; Start 10/07/21 at 16:30; Status UNV Sennosides (Senna) 17.2 mg PRN BID PRN PO CONSTIPATION, 1ST CHOICE; Start 10/08/21 at 11:30 Methylprednisolone (Medrol) 8 mg BID PO Last administered on 10/08/21at 21:59; Start 10/08/21 at 12:00; Stop 10/08/21 at 21:01; Status DC Methylprednisolone (Medrol) 4 mg BIDPCLD PO Last administered on 10/08/21at 18:23; Start 10/08/21 at 13:30; Stop 10/08/21 at 17:31; Status DC Methylprednisolone (Medrol) 4 mg TIDPC PO Last administered on 10/09/21at 17:10; Start 10/09/21 at 08:30; Stop 10/09/21 at 17:31; Status DC Methylprednisolone (Medrol) 8 mg QHS PO Last administered on 10/09/21at 22:00; Start 10/09/21 at 21:00; Stop 10/09/21 at 21:01; Status DC Methylprednisolone (Medrol) 4 mg QIDAFTMEAL PO Last administered on 10/10/21 21:18; Start 10/10/21 at 09:00; Stop 10/10/21 at 21:01; Status DC Methylprednisolone (Medrol) 4 mg TID PO Last administered on 10/11/21at 21:05; Start 10/11/21 at 09:00; Stop 10/11/21 at 21:01; Status DC Methylprednisolone (Medrol) 4 mg BID PO Last administered on 10/12/21at 21:27; Start 10/12/21 at 09:00; Stop 10/12/21 at 21:01; Status DC Methylprednisolone (Medrol) 4 mg DAILY PO ; Start 10/13/21 at 09:00; Stop 10/13/21 at 09:01; Status DC Tramadol HCl (Ultram) 50 mg PRN Q6HRS PRN PO MILD PAIN 1-3 Last administered on 10/09/21 14:49; Start 10/09/21 at 13:30 Gabapentin (Neurontin) 600 mg TID PO Last administered on 10/14/21 13:14; Start 10/10/21 at 14:00 Bisacodyl (Dulcolax Tab) 10 mg DAILY PO Last administered on 10/12/21 08:32; Start 10/10/21 at 15:00 Magnesium Hydroxide (Milk Of Magnesia) 2,400 mg PRN DAILY PRN PO CONSTIPATION, 2ND CHOICE; Start 10/10/21 at 14:45 Tramadol HCl (Ultram) 100 mg PRN Q6HRS PRN PO MODERATE PAIN, 1ST CHOICE Last administered on 10/14/21at 11:59; Start 10/11/21 at 09:15 Ondansetron HCl (Zofran) 4 mg PRN Q4HRS PRN IVP NAUSEA/VOMITING Last administered on 10/13/21 06:08; Start 10/12/21 at 15:15 Potassium Chloride/Sodium Chloride 1,000 ml @ 75 mls/hr [id number] IV Last administered on 10/13/21 06:05; Start 10/12/21 at 17:15 Fentanyl (Duragesic 12mcg/ Hr Patch) 1 patch Q3DAYS TD Last administered on 10/13/21 16:04; Start 10/13/21 at 14:30 Methylprednisolone (Medrol) 8 mg BID PO Last administered on 10/13/21at 20:26; Start 10/13/21 at 09:00; Stop 10/13/21 at 21:01; Status DC Methylprednisolone (Medrol) 4 mg BIDPCLD PO Last administered on 10/13/21at 18:36; Start 10/13/21 at 12:30; Stop 10/13/21 at 17:31; Status DC Methylprednisolone (Medrol) 4 mg TIDPC PO Last administered on 10/14/21at 13:13; Start 10/14/21 at 08:30; Stop 10/14/21 at 17:31 Methylprednisolone (Medrol) 8 mg QHS PO ; Start 10/14/21 at 21:00; Stop 10/14/21 at 21:01 Methylprednisolone (Medrol) 4 mg QIDAFTMEAL PO ; Start 10/15/21 at 09:00; Stop 10/15/21 at 21:01 Methylprednisolone (Medrol) 4 mg TID PO ; Start 10/16/21 at 09:00; Stop 10/16/21 at 21:01 Methylprednisolone (Medrol) 4 mg BID PO ; Start 10/17/21 at 09:00; Stop 10/17/21 at 21:01 Methylprednisolone (Medrol) 4 mg DAILY PO ; Start 10/18/21 at 09:00; Stop 10/18/21 at 09:01 Ondansetron HCl (Zofran Odt) 4 mg PRN Q6HRS PRN PO NAUSEA/VOMITING Last administered on 10/14/21at 10:41; Start 10/14/21 at 10:45 Active Scripts Active Reported Crestor (Rosuvastatin Calcium) 5 Mg Tablet 20 Mg PO HS Losartan Potassium 50 Mg Tablet 50 Mg PO DAILY Actos (Pioglitazone Hcl) 15 Mg Tablet 15 Mg PO DAILY Tresiba (Insulin Degludec) 100 Unit/1 Ml Vial 15 Unit SQ HS Humalog (Insulin Lispro) 100 Unit/1 Ml Vial 5-10 Unit SQ PRN BFRMEAL PRN Calcium 500+D Tablet Chew (Calcium Carbonate/Vitamin D3) 1 Each Tab.chew 1 Each PO DAILY Coq10 (Ubidecarenone) 50 Mg Tab.chew 200 Mg PO DAILY Ondansetron Odt (Ondansetron) 8 Mg Tab.rapdis 8 Mg PO DAILY PRN Miralax (Polyethylene Glycol 3350) 17 Gm Powd.pack 0.5 Pkt PO DAILY Senna Laxative (Sennosides) 8.6 Mg Tablet 8.6 Mg PO DAILY Claritin (Loratadine) 10 Mg Capsule 10 Mg PO DAILY PRN Zelnorm (Tegaserod Hydrogen Maleate) 6 Mg Tablet 6 Mg PO BID Alendronate Sodium 70 Mg Tablet 70 Mg PO WEEKLY Wellbutrin Xl (Bupropion Hcl) 300 Mg Tab.er.24h 300 Mg PO DAILY Gabapentin 600 Mg Tablet 600 Mg PO HS Gabapentin 600 Mg Tablet 300 Mg PO BIDACBL Metoprolol Succinate ( Xl ) (Metoprolol Succinate) 25 Mg Tab.er.24h 25 Mg PO DAILY Ropinirole Hcl 0.5 Mg Tablet 0.5 Mg PO BIDACBL Sinemet 25-100 Mg Tablet (Carbidopa/Levodopa) 1 Each Tablet 1.5 Tab PO TID Sinemet 25-100 Mg Tablet (Carbidopa/Levodopa) 1 Each Tablet 1 Tab PO DAILY08 Levothyroxine Sodium 125 Mcg Tablet 125 Mcg PO DAILYAC Vitals/I & O Vital Sign - Last 24 Hours 10/13/21 10/13/21 10/13/21 10/13/21 16:04 18:36 19:00 19:06 Temp 97.6 97.6 Pulse 90 Resp 14 B/P (MAP) 123/57 (79) Pulse Ox 98 O2 Delivery Room Air Room Air Room Air Room Air 10/13/21 10/13/21 10/13/21 10/14/21 20:00 20:04 23:00 06:05 Temp 97.8 97.8 Pulse 86 Resp 16 B/P (MAP) 139/58 (85) Pulse Ox 98 97 97 O2 Delivery Room Air Room Air Room Air Room Air O2 Flow Rate 3.0 3.0 10/14/21 10/14/21 10/14/21 10/14/21 06:35 08:00 08:35 11:00 Temp 97.6 97.6 Pulse 84 89 Resp 16 16 B/P (MAP) 125/50 122/74 (90) Pulse Ox 97 95 O2 Delivery Room Air Room Air Room Air 10/14/21 10/14/21 10/14/21 11:59 13:14 15:00 Temp 98.0 98.0 Pulse 87 Resp 16 16 18 B/P (MAP) 106/41 (62) Pulse Ox 97 97 98 O2 Delivery Room Air Room Air Room Air Intake and Output 10/13/21 10/13/21 10/14/21 15:00 23:00 07:00 Intake Total 150 ml Balance 150 ml Justifications for Admission Other Justification BRENDA LEAHY APRN Oct 14, 2021 15:51
[2021-10-14] MEDS ORDERED: ACETAMINOPHEN 325 MG TABLET. PO ONE (17:00)
[2021-10-14] MEDS ORDERED: traMADol 50 MG TABLET PO ONE (17:00)
--- NOTE | 2021-10-14 17:22 | NUR ---
Patient left in wheelchair with via transportation sent by [facility]. Attempted to call report twice and was unable to speak with designated nurse. Phone number left with Nurse at [facility] to contact this nurse for report. Paperwork sent with patient.
--- NOTE | 2021-10-14 18:45 | OP ---
DATE OF SURGERY: 10/07/2021 PREOPERATIVE DIAGNOSES: 1. Severe lumbar spinal stenosis, L3-4. 2. Spondylolisthesis, L3-4 and L4-5. OPERATIONS PERFORMED: 1. Bilateral hemilaminotomies with decompression of dura and nerve root, L3-4. 2. Posterior instrumentation, posterolateral fusion L3, L4, L5 with allograft and autograft bone. The operation was done with EMG monitoring, SSEP monitoring, motor evoked potentials, BrainLAB guidance. SURGEON: Tray Messina M.D. BARNWORKER GROOM: DIDIER Lundberg; assisted with the surgery. She assisted with the exposure, the decompression as well as the placement of the pedicle screws and posterolateral fusion and closure. OPERATIVE INDICATIONS: The patient is a pleasant 66-year-old who developed problems with back and bilateral leg pain, which became more and more severe. She had the above-mentioned findings on imaging studies. She failed to improve with physical therapy and the problem has been progressive. I recommended bilateral decompressive surgery at L3-4 to fully decompress the dura and nerve root at this location combined with an instrumented lumbar fusion, L3-4 and L4-5. She understood the rationale for surgery, the technique of the operation, expected postoperative course, and wished to go ahead. DESCRIPTION OF PROCEDURE: Following general endotracheal anesthesia, the patient was positioned prone on the Oswaldo table. Lumbar region was prepped and draped in standard fashion. HENRI hose and AV impulse boots were applied for DVT prophylaxis. The microscope was draped, fluoroscopy was draped and brought in the field. Monitoring was established. Ancef 2 grams given as well as vancomycin 1 gram prior to surgery. Using fluoroscopic guidance, I made an incision directly over the L3-4 interspace. I dissected down through skin and subcutaneous tissue. I placed a [place] microdisk retractor on the left, brought in the microscope and burred down a generous hemilaminotomy at L3-4 and peeled away thickened ligamentum flavum and worked toward the midline out laterally and performed a partial foraminotomy and fully decompressed the region, peeling away the very thickened ligamentum flavum. I went down the right side and performed the identical operation on the right side. Following this, then I enlarged my incision superiorly and inferiorly and I placed Ab retractors and initialized the [employer] by attaching the Star to inferior L5 spinous process. Once the Brain[employer] was initialized, then I, on the left side, drilled into the posterior aspect of the pedicle at L3, L4, L5. I passed the black ball with stimulated EMG monitoring, followed by ball tip probe, followed by tap again with stimulated EMG monitoring followed by screw placement. After I excoriated the lateral facets and transverse processes at these levels, I did aspirate 20 mL of bone marrow. I placed allograft bone in and then I packed this into the lateral gutter. Using the [place] spine system, I placed pedicle screws in L3, L4, and L5, placed the juan pablo and nuts and torqued the system sequentially. I then went to the right side and in a similar fashion cannulated the pedicles of L3, L4, L5 without difficulty. I had again excoriated the lateral facets and transverse processes. Again, I packed bone in laterally. I did use some of the patient's own bone from the decompression at L3-L4 as well as allograft bone. Once the bone was placed the screws were placed. I placed the juan pablo. The nuts were applied that I sequentially torqued and then irrigated copiously, obtained images, which looked quite good. At this point, then I removed the retractor, obtained hemostasis in the muscle and closed the wound with absorbable suture and the skin with a 4-0 subcuticular stitch. I might note that we used EMG and SSEP as well as motor evoked potentials during the operation. There was no untoward firing at any time to suggest that there was any nerve root irritation following the surgery. Then, the patient was awakened uneventfully and taken to recovery room in excellent condition. I was quite pleased with the surgery. MICHELLE/MARK/ROBERTO DR: Jae TID: [id number] CLIFF
[2021-10-14] MEDS ORDERED: methylPREDNISolone 4 MG TABLET. PO SCH (21:00)
[2021-10-15] MEDS ORDERED: methylPREDNISolone 4 MG TABLET. PO SCH (09:00)
[2021-10-16] MEDS ORDERED: methylPREDNISolone 4 MG TABLET. PO SCH (09:00)
[2021-10-17] MEDS ORDERED: methylPREDNISolone 4 MG TABLET. PO SCH (09:00)
[2021-10-18] MEDS ORDERED: methylPREDNISolone 4 MG TABLET. PO SCH (09:00)
== END 2021-10-14 17:00 | DRG 460 ==
LOC: OPSVCIP 10-07 06:35 → 4 NORTH 10-07 16:25
PROVIDERS: ADMIT Neurological Surgery; ATTEND Neurological Surgery
PROC: 01NB0ZZ Release Lumbar Nerve, Open Approach (ICD-10-PCS; 2021-10-07)
PROC: 00NY0ZZ Release Lumbar Spinal Cord, Open Approach (ICD-10-PCS; 2021-10-07)
PROC: 4A11X4G Monitoring of Peripheral Nervous Electrical Activity, Intraoperative, External Approach (ICD-10-PCS; 2021-10-07)
PROC: 0SG1071 Fusion of 2 or more Lumbar Vertebral Joints with Autologous Tissue Substitute, Posterior Approach, Posterior Column, Open Approach (ICD-10-PCS; principal; 2021-10-07 09:00)
DX: M48.061 Spinal stenosis, lumbar region without neurogenic claudication (principal); E11.42 Type 2 diabetes mellitus with diabetic polyneuropathy; E11.610 Type 2 diabetes mellitus with diabetic neuropathic arthropathy; G20 Parkinson's disease; G89.29 Other chronic pain; M43.16 Spondylolisthesis, lumbar region; M54.16 Radiculopathy, lumbar region; Z20.822 Contact with and (suspected) exposure to COVID-19; M77.9 Enthesopathy, unspecified; M51.36 Other intervertebral disc degeneration, lumbar region; Z88.8 Allergy status to other drugs, medicaments and biological substances; Z91.041 Radiographic dye allergy status; Z83.3 Family history of diabetes mellitus; Z91.81 History of falling; Z82.49 Family history of ischemic heart disease and other diseases of the circulatory system
CPT/HCPCS: 36415; 72100; 72131; 76000; 82962; 85610; 85730; 86850; 86900; 86901; 88304; 88311; 93005; A4213; A4222; A4223; A4314; A4364; A4657; A4930; A6254; A6257; A6258; C1713; J0330; J0690; J0780; J1100; J1815; J1885; J2250; J2370; J2405; J2704; J3010; J3370; J3480; J3490; J7030; J7050; J7120; J7509; U0003; 97110-GP; 97116-GP; 97530-GO; 97530-GP; 97535-GO; G0378

== ENCOUNTER → 2021-10-03 | Outpatient (CLI) | payer MEDICARE, BC ==
[~2021-10-03] MED LIST changes: -HYDROmorphone 2 MG/ML INJ. IVP PRN; -IV RINGERS,LACTATED 1000ML 1,000 ML IV SCH; -MORPHINE SULFATE 2 MG/ML INJ. IVP PRN; -PROCHLORPERAZINE 10 MG/2 ML VIAL. IVP PRN; -ceFAZolin SODIUM 1 GM in IV NORMAL SALINE 1000ML BAG 1,000 ML IRR ONE; -fentaNYL PF VIAL 100 MCG/2 ML VIAL IVP PRN
== END ==
LOC: LAB 13:37
PROVIDERS: ATTEND Neurological Surgery
DX: Z01.812 Encounter for preprocedural laboratory examination (principal); M43.16 Spondylolisthesis, lumbar region; M48.062 Spinal stenosis, lumbar region with neurogenic claudication
CPT/HCPCS: 87641

== ENCOUNTER → 2021-12-13 | Outpatient (CLI) | payer MEDICARE, BC ==
[~2021-12-13] MED LIST changes: +CRESTOR5 MG PO
--- NOTE | 2021-12-13 17:18 | KCIC ---
EXAM: XR LUMBAR SPINE 2-3V 12/13/2021 4:12 PM CLINICAL INDICATION: Status post lumbar fusion COMPARISON: lumbar spine radiograph 08/03/2021 TECHNIQUE: Standing AP and lateral views of the lumbar spine FINDINGS: There 5 nonrib-bearing lumbar vertebral bodies. There are new surgical changes of posterio r fusion L3-L5 with bilateral pedicle screws and connecting rods. No evidence of hardware complicatio n. There is unchanged 6 mm anterolisthesis of L3 on L4 and unchanged 10 mm anterolisthesis of L4 on L 5. Unchanged mild disc space narrowing and endplate sclerosis at L3-L4 and L4-L5. Mild disc space kyleigh rowing elsewhere. No acute fracture. IMPRESSION: 1. New surgical changes of posterior fusion at L3-L5. No evidence of hardware complication. 2. Unchanged 6 mm anterolisthesis at L3-L4 and 10 mm anterolisthesis at L4-L5. Electronically signed by: Soni Arevalo MD (12/13/2021 5:16 PM) [id number]
== END ==
LOC: KCIC 16:09
PROVIDERS: ATTEND Neurological Surgery
DX: M43.16 Spondylolisthesis, lumbar region (principal); M48.061 Spinal stenosis, lumbar region without neurogenic claudication; Z98.1 Arthrodesis status
CPT/HCPCS: 72100